=== PATIENT | female | born 2000 | race Caucasian/White ===

== ENCOUNTER 2020-08-29 07:20 | Emergency (ER) | payer OTHER, SELFPAY ==
[2020-08-29 07:21] VITALS: BP 153/84; PULSE 74; RESP 16; TEMP 36.8; O2SAT 98; BMI 28.3
--- NOTE | 2020-08-29 07:44 | CT_ITS ---
PROCEDURE: CT ABDOMEN PELVIS WO CON CLINICAL INDICATION: flank pain Left flank pain COMPARISON: No exams were available for comparison TECHNIQUE: Axial images obtained with sagittal and coronal reformats. All CT scans at the facility use one or more dose reduction, viz: automated exposure control, ma/kV adjustment per patient size (including targeted exams where dose is matched to indication, i.e. head), or iterative reconstruction technique. FINDINGS: LOWER THORAX: No acute finding ABDOMEN & PELVIS: Stippled areas of decreased attenuation are present in the gallbladder consistent with cholelithiasis. The spleen, adrenal glands, and pancreas have an unremarkable appearance. There is a small hiatal hernia. There is mild ectasia of the left renal collecting system and ureter but no definite ureteral stone is apparent. The urinary bladder is decompressed. No intestinal obstruction or free air. No evidence of appendicitis or diverticulitis. 2 cm hypodensity is present in the left ovary consistent with ovarian cyst. No acute bony anomalies. There is grade 2 spondylitic spondylolisthesis of L5 on S1. IMPRESSION: 1. Minimal ectasia of the left renal collecting system and minimal haziness of the periureteral fat. A definite ureteral stone is not identified and no stones are evident within the urinary bladder. This may be seen with recently passed stone or urinary tract infection. 2. 2 cm left ovarian cyst. 3. Cholelithiasis Dictated by: Cesar Godinez MD 08/29/2020 10:02 Cesar Godinez MD in OV 08/29/2020 10:02
--- NOTE | 2020-08-29 07:46 | HMH.EDGENADL ---
ED Disposition Clinical Impression: Renal colic on left side Disposition: Home, Self-Care Condition on Discharge: Good Additional Instructions: You were seen on an emergency basis. It is very important that you follow up with your primary care provider and/or specialist as we discussed within 2 days. All labs and imaging were obtained and interpreted here to rule out life threatening emergencies, but your final results should be reviewed by your primary doctor at your follow up appointment. Please return to the emergency department if any of your symptoms worsen, or if they do not improve as we discussed. Prescriptions: Naproxen Sodium [Anaprox Ds] 550 mg PO BID PRN #20 tab PRN Reason: Moderate Pain Prescription Printed Referrals: Bruce Redding [Primary Care Provider] - - Critical Care Critical Care Time: No Attestation: On , the high probability of a clinically significant, sudden or life threatening deterioration of the following system(s) required my full and direct attention, intervention and personal management. The time I documented below is in addition to time spent performing reported procedures but includes the following listed in this critical care notation. Medical Decision Making - Medical Records Medical records reviewed: Yes: I reviewed the patient's medical records. - Jesus Inquiry Pt receiving controlled substance: No Vital Signs: 08/29/20 07:21 08/29/20 09:10 08/29/20 09:30 Temperature 98.3 F Temperature Source Oral Pulse Rate [Radial] 74 59 L 56 L Respiratory Rate 16 20 Blood Pressure [Right Arm] 153/84 H 115/66 103/44 L Blood Pressure Mean [Right Arm] 107 82 63 Blood Pressure Source [Right Arm] Automatic Cuff Automatic Cuff Blood Pressure Position [Right Arm] Sitting Sitting Sitting 02 Sat by Pulse Oximetry 98 100 97 Oxygen Delivery Method Room Air Room Air - Lab Data Lab Results 08/29/20 08:09: WBC 11.3, RBC 4.66, Hgb 14.3, Hct 42.9, MCV 91.9, MCH 30.6, MCHC 33.3, RDW 13.5, Plt Count 357, MPV 8.4, Neut % (Auto) 69.0, Lymph % (Auto) 22.2, [place] % (Auto) 4.5, Eos % (Auto) 3.9, Baso % (Auto) 0.5, Neut # (Auto) 7.8, Lymph # (Auto) 2.5, [place] # (Auto) 0.5, Eos # (Auto) 0.4, Baso # (Auto) 0.1 08/29/20 08:09: Sodium 141, Potassium 3.6, Chloride 108 H, Carbon Dioxide 25, Anion Gap 11.6, BUN 10, Creatinine 0.90, Estimated Creat Clear 121, Estimated GFR 80, Est GFR ( Amer) 97, Glucose 110 H, Calcium 9.4, Total Bilirubin 0.5, AST 22, ALT 18, Alkaline Phosphatase 98, Total Protein 7.6, Albumin 4.2, Globulin 3.4 H, Albumin/Globulin Ratio 1.2 08/29/20 08:09: Serum HCG, Qual Negative 08/29/20 08:27: Urine Color Yellow, Urine Appearance Clear, Urine pH 6.0, Ur Specific [place] >= 1.030, Urine Protein Trace, Urine Glucose (UA) Negative, Urine Ketones Trace, Urine Blood 3+, Urine Nitrate Negative, Urine Bilirubin Negative, Urine Urobilinogen 0.2, Ur Leukocyte Esterase Negative, Urine RBC 20-50, Urine WBC Occasional, Ur Squamous Epith Cells 10-20, Urine Bacteria 1+ 08/29/20 08:27: Urine HCG, Qual Negative Result diagrams: 08/29/20 08:09 08/29/20 08:09 Orders (Tests/Meds): ED MEDICATIONS Generic Name Dose Route Start Last Admin Trade Name Freq PRN Reason Stop Dose Admin Sodium Chloride 1,000 mls @ 999 mls/hr 08/29/20 08:45 08/29/20 08:34 Sod Chlor 0.9% 1000ml Bag IV 08/29/20 09:45 999 mls/hr .[id number] JORDAN Administration Discontinued Medications Generic Name Dose Route Start Last Admin Trade Name Freq PRN Reason Stop Dose Admin Hydromorphone HCl 1 mg 08/29/20 08:32 08/29/20 08:33 Hydromorphone 2mg/Ml Syringe IV 08/29/20 08:33 1 mg ONCE ONE Administration Ketorolac Tromethamine 30 mg 08/29/20 09:21 08/29/20 09:23 Ketorolac 30mg/Ml Vial IV 08/29/20 09:22 30 mg ONCE ONE Administration Morphine Sulfate 4 mg 08/29/20 07:45 08/29/20 08:11 Morphine 4mg/Ml Syringe IV 08/29/20 07:46 4 mg ONCE ONE Administration Ondansetron HCl 4 mg 01
[2020-08-29 08:24] LABS: Basophils # 0.1 K/mm3 (0-0.2); Basophils % 0.5 % (0.1-2.0); Eosinophils # 0.4 K/mm3 (0.0-0.4); Eosinophils % 3.9 % (0.1-12.0); Hematocrit 42.9 % (37.0-47.0); Hemoglobin 14.3 g/dL (12.2-16.2); Lymphocytes # 2.5 K/mm3 (0.7-4.5); Lymphocytes % 22.2 % (10-50); Mean Corpuscular HGB Conc 33.3 g/dL (31.8-35.4); Mean Corpuscular Hemoglobin 30.6 pg (27.0-31.2); Mean Corpuscular Volume 91.9 fl (81-99); Mean Platelet Volume 8.4 fl (7.4-10.4); Monocytes # 0.5 K/mm3 (0.1-1.0); Monocytes % 4.5 % (1.7-9.3); Neutrophils # 7.8 K/mm3 (1.8-7.8); Platelet Count 357 K/mm3 (142-424); Red Blood Count 4.66 M/mm3 (4.20-5.40); Red Cell Distribution Width 13.5 % (11.5-17.5); White Blood Count 11.3 K/mm3 (4.5-13.0)
[2020-08-29 08:28] LABS: HCG Qualitative, Serum Negative (Negative)
[2020-08-29 08:32] LABS: Alanine Aminotransferase 18 U/L (12-78); Albumin Level 4.2 g/dl (3.5-5.0); Albumin/Globulin Ratio 1.2 (1.1-1.8); Alkaline Phosphatase 98 U/L (38-126); Anion Gap 11.6 mEq/L (5-15); Aspartate Amino Transferase 22 U/L (14-36); Bilirubin,Total 0.5 mg/dl (0.2-1.3); Blood Urea Nitrogen 10 mg/dl (7-17); Calcium 9.4 mg/dl (8.4-10.2); Carbon Dioxide 25 mmol/L (22.0-30.0); Chloride 108 mmol/L (98-107); Creatinine Clearance Estimated 121 mL/min (50-200); Estimated Glomerular Filt Rate 80 ml/min (>60); GFR (African American) 97 ML/MIN (>60); Globulin 3.4 g/dL (1.3-3.2); Glucose 110 mg/dl (74-100); Potassium 3.6 mmoL/L (3.5-5.1); Sodium 141 mmol/L (136-145); Total Protein,Serum 7.6 g/dl (6.3-8.2)
[2020-08-29 08:33] LABS: Microscopic, Urine URINE MICROSCOPIC (MICROSCOPIC)
[2020-08-29 08:35] LABS: Appearance,Urine CLEAR (Clear); Blood, Urine 3+ (Negative); Color,Urine YELLOW (Yellow); Glucose,Urine (UA) Negative (Negative); Ketones,Urine TRACE (Negative); Leukocyte Esterase,Urine Negative (Negative); Nitrate,Urine Negative (Negative); Protein,Urine TRACE (Negative); Specific Gravity, Urine >= 1.030 (1.005-1.030); Urobilinogen,Urine 0.2 EU/dl (0.2)
[2020-08-29 08:38] LABS: Urine Pregnancy, HCG Qual. Negative (Negative)
[2020-08-29 08:44] LABS: Bacteria,Urine 1+ /lpf; Bilirubin,Urine Negative (Negative); RBC,Urine 20-50 #/hpf (0-3); WBC,Urine Occasional #/hpf (0-3)
--- NOTE | 2020-08-29 08:48 | PC.NURSE ---
Patient gone to radiology
--- NOTE | 2020-08-29 09:04 | PC.NURSE ---
Patient returned from radiology
[2020-08-29 09:10] VITALS: BP 115/66; PULSE 59; RESP 20; O2SAT 100
--- NOTE | 2020-08-29 09:27 | PC.NURSE ---
pt continues to c/o lt flank and llq abd pain
[2020-08-29 09:30] VITALS: BP 103/44; PULSE 56; O2SAT 97
[2020-08-29 09:54] VITALS: BP 126/79; PULSE 87; RESP 16; TEMP 36.6; O2SAT 98
== END 2020-08-29 09:56 | disposition home or self-care (01) ==
PROVIDERS: Emergency Provider Physician Assistant; PCP Family Medicine
DX: N23 Unspecified renal colic (principal); Z87.442 Personal history of urinary calculi
CPT/HCPCS: 74176; 80053; 81001; 81025; 84703; 85025; 96365; 96375; 96376; 99283; J2405

== ENCOUNTER 2021-08-24 15:14 | Emergency (ER) | payer SELFPAY ==
[2021-08-24 15:50] VITALS: BP 153/98; PULSE 110; RESP 20; TEMP 38.7; O2SAT 99; BMI 22.1
[2021-08-24 16:16] LABS: UTC Influenza A Antigen Positive (Negative); UTC Strep Screen (Rapid) Negative (Negative)
[2021-08-24 16:17] LABS: UTC Influenza B Antigen Negative (Negative)
--- NOTE | 2021-08-24 16:36 | HMH.EDUTC ---
[facility] [facility] [place] Clinical Impression: Influenza Disposition: Home, Self-Care Condition on Discharge: Good Instructions: How to Avoid a Cold or Flu, Influenza, DI for Influenza -- Adult, Oseltamivir Additional Instructions: ? Start Tamiflu today if you are going to take it. Discussed risk and possible benefits. ? Lots of rest ? Increase Fluids water, Gatorade, powerade, pedialyte,if infant/toddler/child ? Alternate Tylenol and / or ibuprofen as discussed for fever, aches, chills Follow up IMMEDIATELY with your family doctor for new or worsening Symptoms OR no noticeable improvement over the next 48-72 hours, 911 for difficulty or breathing ? You or your child area contagious until no fever, aches, chills for 24 hours with medication for symptoms ? Help Prevent the spread of influenza: ? Wash your hands often. Use soap and water. Wash your hands after you use the bathroom, change a child's diapers, or sneeze. Wash your hands before you prepare or eat food. Use gel hand cleanser that has 60% alcohol, when soap and water are not available. Do not touch your eyes, nose, or mouth unless you have washed your hands first. ? Cover your mouth when you sneeze or cough. Cough into a tissue or the bend of your arm. If you use a tissue, throw it away immediately and wash your hands. ? Clean shared items with a germ-killing bottle cleaner. Clean table surfaces, doorknobs, and light switches. Do not share towels, silverware, and dishes with people who are sick. Wash bed sheets, towels, silverware, and dishes with soap and water. ? Wear a mask over your mouth and nose if you are sick. The face mask may help protect others from becoming infected with the flu. Wear the mask when in common areas of your home or if you seek care with a healthcare provider. ? Stay away from others if you are sick. Stay at home until 24 hours after your fever and symptoms are gone. Prescriptions: Oseltamivir Phosphate [Tamiflu 75mg Capsule] 75 mg PO BID #10 cap Prescription Printed Referrals: Bruce Redding [Primary Care Provider] - As needed Forms: Work/School Release Medical Decision Making - Jesus Inquiry Pt receiving controlled substance: No Jesus was queried for this patient: No Vital Signs: 08/24/21 15:50 08/24/21 16:38 Temperature 101.6 F H 101.6 F H Temperature Source Oral Pulse Rate 110 H Pulse Rate [Right Brachial] 110 H Respiratory Rate 20 20 Blood Pressure 153/98 H Blood Pressure [Right Arm] 153/98 H Blood Pressure Mean [Right Arm] 116 Blood Pressure Source [Right Arm] Automatic Cuff Blood Pressure Position [Right Arm] Sitting 02 Sat by Pulse Oximetry 99 Oxygen Delivery Method Room Air - Lab Data Lab results reviewed: Yes: I reviewed the patient's lab results. Lab Results 08/24/21 16:15: Influenza Type A Ag Positive A, Influenza Type B Ag Negative 08/24/21 16:15: Strep Scn Rapid Clinic Negative Orders (Tests/Meds): ED MEDICATIONS Discontinued Medications Generic Name Dose Route Start Last Admin Trade Name Freq PRN Reason Stop Dose Admin Acetaminophen 650 mg 08/24/21 16:09 08/24/21 16:12 Acetaminophen 325mg Tab PO 08/24/21 16:10 650 mg ONCE ONE Administration Ibuprofen 400 mg 08/24/21 16:09 08/24/21 16:12 Ibuprofen 400 Mg Tablet PO 08/24/21 16:10 400 mg ONCE ONE Administration ORDERS Category Date Time Status Strep Screen Confirmation Stat Micro 08/24/21 16:15 Received [facility] [place] - General Stated complaint: Congestion, sore throat, cough Time Seen by Provider: 08/24/21 16:37 Mode of Arrival: Ambulatory Source of Information: Patient Limitations: No Limitations Description of Symptoms (Recalled from Triage Doc. by RN): PATIENT C/O CHEST CONGESTION, SORE THROAT, AND PRODUCTIVE COUGH WITH MUCOUS SINCE SUNDAY HEENT Symptoms (Recalled from RN notes): Yes Resp Symptoms (Recalled from RN notes): Yes Skin Symptoms (Recalled from RN notes): No MS Symptoms (Recalled from RN notes): No Fun
[2021-08-24 16:38] VITALS: BP 153/98; PULSE 110; RESP 20; TEMP 37.9; O2SAT 99
== END 2021-08-24 16:45 | disposition home or self-care (01) ==
PROVIDERS: Emergency Provider Nurse Practitioner; PCP Family Medicine
DX: J10.1 Influenza due to other identified influenza virus with other respiratory manifestations (principal)
CPT/HCPCS: 87804; 87880; 99203; G0463

== ENCOUNTER 2022-03-17 10:27 | Emergency (ER) | payer SELFPAY ==
[2022-03-17 10:30] VITALS: BP 142/99; PULSE 78; RESP 16; TEMP 37.1; O2SAT 98; BMI 20.9
--- NOTE | 2022-03-17 10:43 | PC.NURSE ---
Kimberlee DONALDSON walked patient from her room to the bathroom.
--- NOTE | 2022-03-17 10:48 | PC.NURSE ---
Walked patient back to her room and obtained her urine sample. Hooked patient [facility] to [facility] and asked the patient if i could get her anything she replied back no . Call light within reach told patient to press the red button if she needed us.
[2022-03-17 10:49] VITALS: BP 138/60; PULSE 61; RESP 16; O2SAT 100
--- NOTE | 2022-03-17 10:51 | CT_ITS ---
FINAL REPORT CLINICAL HISTORY: FALL FINDINGS: Axial CT images of the cervical spine were obtained without contrast. Sagittal and coronal reformatted images were also obtained. This study was performed with techniques to keep radiation doses as low as reasonably achievable (ALARA). Individualized dose reduction techniques using automated exposure control or adjustment of mA and/or kV according to the patient's size were employed. There is no evidence of fracture or dislocation. The bony alignment is normal. The disc spaces are preserved. There is no evidence of canal stenosis. No paraspinous soft tissue abnormality is seen. Limited images of the upper thorax are unremarkable. IMPRESSION: No fracture or acute bony abnormality identified. Reviewed, Interpreted and Dictated by Will Ernandez III, MD Transcribed by Vickie Rios Authenticated and [facility]
--- NOTE | 2022-03-17 10:51 | CT_ITS ---
FINAL REPORT CLINICAL HISTORY: CONFUSION FINDINGS: Axial images of the head were obtained without contrast. Coronal reformatted images were also obtained.This study was performed with techniques to keep radiation doses as low as reasonably achievable (ALARA). Individualized dose reduction techniques using automated exposure control or adjustment of mA and/or kV according to the patient's size were employed. There is no evidence of intracranial hemorrhage or mass. The ventricular size is within normal limits. There is no evidence of shift of the midline structures. No abnormal extra axial fluid collection is identified. No skull abnormality is seen on the bone window images. IMPRESSION: No acute intracranial abnormality. Reviewed, Interpreted and Dictated by Will Ernandez III, MD Transcribed by Vickie Rios Authenticated and [facility]
[2022-03-17 10:57] LABS: Microscopic, Urine URINE MICROSCOPIC (MICROSCOPIC)
[2022-03-17 11:03] LABS: Appearance,Urine CLEAR (Clear); Bilirubin,Urine Negative (Negative); Blood, Urine Negative (Negative); Color,Urine YELLOW (Yellow); Glucose,Urine (UA) Negative (Negative); Ketones,Urine Negative (Negative); Leukocyte Esterase,Urine Negative (Negative); Nitrate,Urine Negative (Negative); PH,Urine 7.5 (5.0-8.5); Protein,Urine Negative (Negative); Urobilinogen,Urine 0.2 EU/dl (0.2)
[2022-03-17 11:07] VITALS: BP 142/95; PULSE 66; RESP 16; O2SAT 100
--- NOTE | 2022-03-17 11:08 | PC.NURSE ---
Vitals computer said that there was an airway leak on the patient BP cuff. Went into room and readjusted patient BP cuff. Asked patient if she needed anything she shook her head no. I told her if she needed anything to call out.
[2022-03-17 11:10] LABS: Urine Pregnancy, HCG Qual. Negative (Negative)
--- NOTE | 2022-03-17 11:10 | HMH.EDGENADL ---
ED Disposition Clinical Impression: Complicated migraine Disposition: Home, Self-Care Condition on Discharge: Good Instructions: DI for Migraine Additional Instructions: Additional instructions for HEADACHE: See your physician as soon as possible for further evaluation. Return immediately if worsening headache, vomiting, problems with vision or speech, fever, numbness or weakness of the extremities, neck pain or stiffness. Referrals: Bruce Redding [Primary Care Provider] - Forms: Work/School Release - Critical Care Critical Care Time: No Attestation: On 03/17/22, the high probability of a clinically significant, sudden or life threatening deterioration of the following system(s) required my full and direct attention, intervention and personal management. The time I documented below is in addition to time spent performing reported procedures but includes the following listed in this critical care notation. Medical Decision Making - Jesus Inquiry Pt receiving controlled substance: No Vital Signs: 03/17/22 10:30 03/17/22 10:49 03/17/22 11:07 Temperature 98.7 F Temperature Source Oral Pulse Rate 61 66 Pulse Rate [Radial] 78 Respiratory Rate 16 16 16 Blood Pressure 138/60 142/95 H Blood Pressure [Right Arm] 142/99 H Blood Pressure Mean 114 114 Blood Pressure Mean [Right Arm] 113 Blood Pressure Position [Right Arm] Sitting 02 Sat by Pulse Oximetry 98 100 100 Oxygen Delivery Method Room Air 03/17/22 11:58 Temperature Temperature Source Pulse Rate 56 L Pulse Rate [Radial] Respiratory Rate 16 Blood Pressure 144/82 H Blood Pressure [Right Arm] Blood Pressure Mean 103 Blood Pressure Mean [Right Arm] Blood Pressure Position [Right Arm] 02 Sat by Pulse Oximetry 100 Oxygen Delivery Method Room Air - Lab Data Lab Results 03/17/22 10:40: Urine Color Yellow, Urine Appearance Clear, Urine pH 7.5, Ur Specific [place] 1.020, Urine Protein Negative, Urine Glucose (UA) Negative, Urine Ketones Negative, Urine Blood Negative, Urine Nitrate Negative, Urine Bilirubin Negative, Urine Urobilinogen 0.2, Ur Leukocyte Esterase Negative, Urine RBC None, Urine WBC Occasional, Ur Squamous Epith Cells 3-5, Urine Bacteria Trace 03/17/22 10:40: Urine HCG, Qual Negative 03/17/22 11:05: WBC 7.5, RBC 4.28, Hgb 12.6, Hct 37.9, MCV 88.6, MCH 29.4, MCHC 33.2, RDW 13.8, Plt Count 329, MPV 7.7, Neut % (Auto) 69.0, Lymph % (Auto) 25.0, [place] % (Auto) 4.8, Eos % (Auto) 0.6, Baso % (Auto) 0.6, Neut # (Auto) 5.2, Lymph # (Auto) 1.9, [place] # (Auto) 0.4, Eos # (Auto) 0.1, Baso # (Auto) 0.0 03/17/22 11:05: Sodium 138, Potassium 4.1, Chloride 107, Carbon Dioxide 23, Anion Gap 12.1, BUN 14, Creatinine 0.80, Estimated Creat Clear 103, Estimated GFR 90, Est GFR ( Amer) 109, Glucose 97, Calcium 9.4, Total Bilirubin 0.3, AST 26, ALT 15, Alkaline Phosphatase 48, Total Protein 7.0, Albumin 4.2, Globulin 2.8, Albumin/Globulin Ratio 1.5 Result diagrams: 03/17/22 11:05 03/17/22 11:05 Orders (Tests/Meds): ED MEDICATIONS Discontinued Medications Generic Name Dose Route Start Last Admin Trade Name Freq PRN Reason Stop Dose Admin Iopamidol 100 ml 03/17/22 11:43 03/17/22 11:44 Iopamidol-370 (76%);100ml Bottle IV 03/17/22 11:44 100 ml ONCE ONE Administration Sodium Chloride 50 ml 03/17/22 11:43 03/17/22 11:44 0.9 % Sodium Chloride 50 Ml Vial IV 03/17/22 11:44 50 ml ONCE ONE Administration Sodium Chloride 10 ml 03/17/22 11:43 03/17/22 11:44 Sodium Chloride 0.9% 10ml Syr (Rad Only) IV 03/17/22 11:44 10 ml ONCE ONE Administration - CT Data CT Scan: Head, C-Spine, Other (CTA head and neck) Time Received: 12:[address] Reviewed: Yes: I have viewed the radiologist's interpretation Findings Narrative: Ordering Physician: Cordell Mary MD Date of Service: 03/17/22 Procedure(s): CT angio neck Accession Number(s): [id number] cc: Bruce Redding ; Will Ernandez MD; Cordell Mary
[2022-03-17 11:17] LABS: Bacteria,Urine Trace /lpf; WBC,Urine Occasional #/hpf (0-3)
--- NOTE | 2022-03-17 11:18 | PC.NURSE ---
DR GAMEZ AT BEDSIDE ASSESSING PT.
--- NOTE | 2022-03-17 11:20 | CT_ITS ---
FINAL REPORT TECHNIQUE: Thin section axial CT with IV contrast supplemented with multiplanar reconstruction under CT angiogram protocol. This study was performed with techniques to keep radiation doses as low as reasonably achievable (ALARA). Individualized dose reduction techniques using automated exposure control or adjustment of mA and/or kV according to the patient''s size were employed. CLINICAL HISTORY: right sided numbness, confusion, headache FINDINGS: The distal vertebral, basilar and distal internal carotid arteries have an unremarkable appearance. No aneurysm is seen. Major intracranial vessels are patent without significant stenosis. IMPRESSION: No acute abnormality identified. Reviewed, Interpreted and Dictated by Will Ernandez III, MD Transcribed by Vickie Rios Authenticated and [facility]
--- NOTE | 2022-03-17 11:20 | CT_ITS ---
FINAL REPORT TECHNIQUE: Thin section axial CT with IV contrast supplemented with multiplanar reconstruction under CT angiogram protocol. This study was performed with techniques to keep radiation doses as low as reasonably achievable (ALARA). Individualized dose reduction techniques using automated exposure control or adjustment of mA and/or kV according to the patient''s size were employed. NASCET criteria was utilized during interpretation. CLINICAL HISTORY: right sided numbness, confusion, headache FINDINGS: Aortic arch: Arch shows no significant narrowing. Great vessel origins are widely patent. Right carotid: No significant stenosis is seen of the cervical common or internal carotid artery. Left carotid: No significant stenosis is seen of the cervical common or internal carotid artery. Vertebral: Left vertebral artery is dominant. No significant stenosis is present. Reviewed, Interpreted and Dictated by Will Ernandez III, MD Transcribed by Vickie Rios Authenticated and [facility]
--- NOTE | 2022-03-17 11:20 | PC.NURSE ---
radiology at [facility] to transporting pt to CT via wheelchair
[2022-03-17 11:28] LABS: Basophils % 0.6 % (0.1-2.0); Eosinophils # 0.1 K/mm3 (0.0-0.4); Eosinophils % 0.6 % (0.1-12.0); Hematocrit 37.9 % (37.0-47.0); Hemoglobin 12.6 g/dL (12.2-16.2); Lymphocytes # 1.9 K/mm3 (0.7-4.5); Mean Corpuscular HGB Conc 33.2 g/dL (31.8-35.4); Mean Corpuscular Hemoglobin 29.4 pg (27.0-31.2); Mean Corpuscular Volume 88.6 fl (81-99); Mean Platelet Volume 7.7 fl (7.4-10.4); Monocytes # 0.4 K/mm3 (0.1-1.0); Monocytes % 4.8 % (1.7-9.3); Neutrophils # 5.2 K/mm3 (1.8-7.8); Platelet Count 329 K/mm3 (142-424); Red Blood Count 4.28 M/mm3 (4.20-5.40); Red Cell Distribution Width 13.8 % (11.5-17.5); White Blood Count 7.5 K/mm3 (4.8-10.8)
[2022-03-17 11:31] LABS: Potassium 4.1 mmoL/L (3.5-5.1)
[2022-03-17 11:32] LABS: Albumin Level 4.2 g/dl (3.5-5.0); Chloride 107 mmol/L (98-107); Sodium 138 mmol/L (136-145)
[2022-03-17 11:33] LABS: Alanine Aminotransferase 15 U/L (12-78); Aspartate Amino Transferase 26 U/L (14-36); Blood Urea Nitrogen 14 mg/dl (7-17); Creatinine Clearance Estimated 103 mL/min (50-200); Estimated Glomerular Filt Rate 90 ml/min (>60); GFR (African American) 109 ML/MIN (>60)
[2022-03-17 11:34] LABS: Anion Gap 12.1 mEq/L (5-15); Calcium 9.4 mg/dl (8.4-10.2); Carbon Dioxide 23 mmol/L (22.0-30.0); Glucose 97 mg/dl (74-100)
[2022-03-17 11:35] LABS: Albumin/Globulin Ratio 1.5 (1.1-1.8); Alkaline Phosphatase 48 U/L (38-126); Bilirubin,Total 0.3 mg/dl (0.2-1.3); Globulin 2.8 g/dL (1.3-3.2)
--- NOTE | 2022-03-17 11:37 | PC.NURSE ---
Pt has returned back to room from CT via w/c.
[2022-03-17 11:58] VITALS: BP 144/82; PULSE 56; RESP 16; O2SAT 100
[2022-03-17 12:36] VITALS: BP 140/88; PULSE 78; RESP 16; TEMP 36.6; O2SAT 98
== END 2022-03-17 12:37 | disposition home or self-care (01) ==
PROVIDERS: Emergency Provider Emergency Medicine; PCP Family Medicine
DX: G43.109 Migraine with aura, not intractable, without status migrainosus (principal); R20.2 Paresthesia of skin; R47.01 Aphasia; R41.0 Disorientation, unspecified; R53.1 Weakness; H53.8 Other visual disturbances; R53.82 Chronic fatigue, unspecified; F17.210 Nicotine dependence, cigarettes, uncomplicated; W10.9XXA Fall (on) (from) unspecified stairs and steps, initial encounter
CPT/HCPCS: 70450; 70496; 70498; 72125; 80053; 81001; 81025; 85025; 99285; Q9967

== ENCOUNTER 2022-11-30 14:54 | Outpatient (CLI) | payer OTHER, SELFPAY ==
[2022-11-30 15:11] VITALS: BMI 30.4
[2022-11-30 15:15] VITALS: BP 156/89; PULSE 92; RESP 16; TEMP 37.2; O2SAT 100
[2022-11-30 15:30] VITALS: BP 138/63
[2022-11-30 15:36] LABS: Microscopic, Urine URINE MICROSCOPIC (MICROSCOPIC)
[2022-11-30 15:40] LABS: Appearance,Urine CLEAR (Clear); Bilirubin,Urine Negative (Negative); Blood, Urine Negative (Negative); Color,Urine YELLOW (Yellow); Glucose,Urine (UA) Negative (Negative); Ketones,Urine Negative (Negative); Leukocyte Esterase,Urine Negative (Negative); Nitrate,Urine Negative (Negative); Protein,Urine Negative (Negative); Urobilinogen,Urine 0.2 EU/dl (0.2)
[2022-11-30 15:45] VITALS: BP 129/89
[2022-11-30 15:51] LABS: Benzodiazepines Screen,Urine Negative ng/ml (<200)
[2022-11-30 15:52] VITALS: BMI 30.4
[2022-11-30 15:52] LABS: Amphetamine/Metha Screen,Urine Negative ng/ml (<1000); Barbiturates Screen,Urine Negative ng/ml (<200)
[2022-11-30 15:53] LABS: Cannabinoid Screen,Urine Negative ng/ml (<50)
[2022-11-30 15:54] LABS: Cocaine Screen,Urine Negative ng/ml (<300); Methadone Screen,Urine Negative ng/ml (<300)
[2022-11-30 15:55] LABS: Opiate Screen,Urine Negative ng/ml (<300)
[2022-11-30 15:56] LABS: Phencyclidine Screen,Urine Negative ng/ml (<25)
[2022-11-30 16:00] VITALS: BP 136/79
[2022-11-30 16:10] LABS: RBC,Urine Occasional #/hpf (0-3); WBC,Urine Occasional #/hpf (0-3)
[2022-11-30 16:11] LABS: Bacteria,Urine Trace /lpf
== END 2022-11-30 16:35 | disposition home or self-care (01) ==
LOC: OBOUT 14:58 → OB 14:59
PROVIDERS: PCP Family Medicine; Visit Provider Obstetrics & Gynecology
DX: O36.8120 Decreased fetal movements, second trimester, not applicable or unspecified (principal); Z3A.20 20 weeks gestation of pregnancy; M79.605 Pain in left leg
CPT/HCPCS: 80305; 81001; G0463

== ENCOUNTER 2023-01-23 14:46 | Outpatient (CLI) | payer OTHER, SELFPAY ==
[2023-01-23 14:49] VITALS: BP 136/85; PULSE 93; RESP 20; TEMP 37.1; O2SAT 98; BMI 33.3
[2023-01-23 16:42] LABS: Microscopic, Urine URINE MICROSCOPIC (MICROSCOPIC)
[2023-01-23 16:43] LABS: Appearance,Urine CLEAR (Clear); Bilirubin,Urine Negative (Negative); Blood, Urine Negative (Negative); Color,Urine YELLOW (Yellow); Glucose,Urine (UA) Negative (Negative); Ketones,Urine Negative (Negative); Leukocyte Esterase,Urine TRACE (Negative); Nitrate,Urine Negative (Negative); PH,Urine 6.5 (5.0-8.5); Protein,Urine Negative (Negative); Urobilinogen,Urine 0.2 EU/dl (0.2)
[2023-01-23 16:55] LABS: Amphetamine/Metha Screen,Urine Negative ng/ml (<1000); Benzodiazepines Screen,Urine Negative ng/ml (<200)
[2023-01-23 16:56] LABS: Barbiturates Screen,Urine Negative ng/ml (<200)
[2023-01-23 16:57] LABS: Cannabinoid Screen,Urine Negative ng/ml (<50); Cocaine Screen,Urine Negative ng/ml (<300)
[2023-01-23 16:58] LABS: Methadone Screen,Urine Negative ng/ml (<300)
[2023-01-23 16:59] LABS: Opiate Screen,Urine Negative ng/ml (<300); Phencyclidine Screen,Urine Negative ng/ml (<25)
[2023-01-23 17:02] LABS: Bacteria,Urine Trace /lpf; WBC,Urine Occasional #/hpf (0-3)
== END 2023-01-23 18:00 | disposition home or self-care (01) ==
LOC: OBOUT 14:47 → OB 14:48
PROVIDERS: PCP Family Medicine; Visit Provider Obstetrics & Gynecology
DX: O47.03 False labor before 37 completed weeks of gestation, third trimester (principal); Z3A.28 28 weeks gestation of pregnancy; M54.50 Low back pain, unspecified
CPT/HCPCS: 59025; 80305; 81001; 96365; G0463

== ENCOUNTER 2024-03-12 11:41 | Outpatient (CLI) | payer MEDICAID, SELFPAY ==
[2024-03-12] VITALS (8 sets, daily range): BP systolic 124–165; BP diastolic 64–98; PULSE 101; RESP 18; TEMP 37.2; O2SAT 97; BMI 40.4; BMI 38.7
--- OUTSIDE RECORDS SUMMARY | 2024-03-12 11:45 | XMS_ITS | Patient Health Record ---
Author Name Unknown Organization [facility] Address [address] [place] [address] Care Team Providers Care Exchange Architect Name Role Phone Iris Godoy Unavailable [phone] Clover Heath Unavailable [phone] Allergies No Known Allergies Results Component Value Reference Range Notes COMPREHENSIVE METABOLIC PANE L Reviewed date:10/15/2023 03:05:56 PM Interpretation:baseline cr = 0.72 Performing Lab: Notes/Report: GFR Normal >60 Chronic Kidney Disease <60 Kidney Failure <15 GLUCOSE RANDOM 88 65-99 mg/dL UREA NITROGEN MG/DL IN SER/PLAS 9 6-20 mg/dL CREATININE MG/DL IN SER/PLAS 0.72 0.57-1.00 mg/dL SODIUM MMOL/L IN SER/PLAS 137 136-145 mmol/L POTASSIUM MMOL/L IN SER/PLAS 4.3 3.5-5.2 mmol/L CHLORIDE 104 98-107 mmol/L CO2 19.6 22.0-29.0 mmol/L CALCIUM MG/DL IN SER/PLAS 9.3 8.6-10.5 mg/dL TOTAL PROTEIN 7.2 6.0-8.5 g/dL ALBUMIN G/DL IN SER/PLAS 4.2 3.5-5.2 g/dL ALT (SGPT) 11 1-33 U/L AST (SGOT) 10 1-32 U/L ALKALINE PHOSPHATASE 79 39-117 U/L BILIRUBIN TOTAL 0.3 0.0-1.2 mg/dL GLOBULIN 3.0 A/G RATIO 1.4 BUN / CREAT RATIO 12.5 7.0-25.0 ANION GAP 13.4 5.0-15.0 mmol/L EGFR CKD-EPI 120.7 >60.0 mL/min/1.73 Lab specim ens received at a [facility].???See result details for the performing location information. URIC ACID Reviewed date:10/15/2023 03:06:00 PM Interpretation:Normal Performing Lab: Notes/Report: URIC ACID 2.8 2.4-5.7 mg/dL Lab specimens received at a [facility].???See result details for the performing location information. LACTATE DEHYDROGENASE Reviewed date:10/15/2023 03:05:44 PM Interpretation:Normal Performing Lab: Notes/Report: LACTATE DEHYDROGENASE 182 135-214 U/L Lab sp ecimens received at a [facility].???See result details for the performing location information. ANTIBODY SCREEN Reviewed date:02/07/2024 08:15:29 AM Interpretation: Performing Lab: Notes/Report: ANTIBODY SCREEN Negative Lab specimen s received at a [facility].???See result details for the performing location information. HCG, QUANTITATIVE, Reviewed date:09/20/2023 02:48:47 PM Interpretation: Performing Lab: Notes/Report: HCG Ranges by Gestational Age Females - non- premenopausal </= 1mIU/mL HCG Females - postmenopausal </= 7mIU/mL HCG 3 Weeks 5.4 - 72 mIU/mL 4 Weeks 10.2 - 708 mIU/mL 5 Weeks 217 - 8,245 mIU/mL 6 Weeks 152 - 32,177 mIU/mL 7 Weeks 4,059 - 153,767 mIU/mL 8 Weeks 31,366 - 149,094 mIU/mL 9 Weeks 59,109 - 135,901 mIU/mL 10 Weeks 44,186 - 170,409 mIU/mL 12 Weeks 27,107 - 201,615 mIU/mL 14 Weeks 24,302 - 93,646 mIU/mL 15 Weeks 12,540 - 69,747 mIU/mL 16 Weeks 8,904 - 55,332 mIU/mL 17 Weeks 8,240 - 51,793 mIU/mL 18 Weeks 9,649 - 55,271 mIU/mL Results may be falsely decreased if patient taking Biotin. BETA HCG II, TOTAL 772.00 Lab speci mens received at a [facility].???See result details for the performing location information. TREPONEMA PALLIDUM (SYPHILIS ) SCREENING CASCADE Reviewed date:02/11/2024 01:10:29 PM Interpretation:Negative Performing Lab: Notes/Report: Performed at: [facility] [address] [id number] Cnc Maintenance Technician: Justina Duff MD, Phone: [phone] T PALLIDUM ANTIBODIES (TP-PA) Non Reactive Non Reacti Lab specimens receiv ed at a [facility].???See result details for the performing location information. GLUCOSE, POST 50 GM GLUCOLA Reviewed date:02/07/2024 08:15:35 AM Interpretation:113, passed Performing Lab: Notes/Report: GESTATIONAL GCT 113 65-139 mg/dL Lab specimen s received at a [facility].???See result details for the performing location information. CBC WITH AUTO DIFFERENTIAL Reviewed date:02/07/2024 08:15:42 AM Interpretation:Normal Performing Lab: Notes/Report: WBC, CORRECTED 11.12 3.40-10.80 10*3/mm3 ERYTHROCYTES IN BLOOD BY AUTOMATED COUNT 3.83 3.77-5.28 10*6/mm3 HEMOGLOBIN (G/DL) IN BLOOD 11.4 12.0-15.9 g/dL HEMATOCRIT (%) BY AUTOMATED COUNT 36.0 34.0-46.6 % RBC MCV (FL) BY AUTOMATED COUNT 94.0 79.0-97.0 fL RBC MCH (PG) BY AUTOMATED COUNT 29.8 26.6-33.0 pg RBC MCHC (G/DL) BY AUTOMATED COUNT 31.7 31.5-35.7 g/dL RBC RDW (%) BY AUTOMATED COUNT 13.4 12.3-15.4 % RDW-SD 45.7 37.0-54.0 fl MEAN PLATELET VOLUME (FL) BY AUTOMATED COUNT 10.6 6.0-12.0 fL PLATELETS BY AUTOMATED COUNT 313 140-450 10*3/mm3 NEUTROPHILS RELATIVE PERCENT BY AUTOMATED COUNT 81.7 42.7-76.0 % LYMPHOCYTES RELATIVE PERCENT BY AUTOMATED COUNT 12.7 19.6-45.3 % MONOCYTES RELATIVE PERCENT BY AUTOMATED COUNT 4.2 5.0-12.0 % EOSINOPHILS RELATIVE PERCENT BY AUTOMATED COUNT 0.3 0.3-6.2 % BASOPHILS RELATIVE PERCENT BY AUTOMATED COUNT 0.2 0.0-1.5 % IMMATURE GRANULOCYTES RELATIVE PERCENT 0.9 0.0-0.5 % NEUTROPHILS ABSOLUTE COUNT BY AUTOMATED COUNT 9.09 1.70-7.00 10*3/mm3 LYMPHOCYTES ABSOLUTE COUNT BY AUTOMATED COUNT 1.41 0.70-3.10 10*3/mm3 MONOCYTES ABSOLUTE COUNT BY AUTOMATED COUNT 0.47 0.10-0.90 10*3/mm3 EOSINOPHILS ABSOLUTE COUNT BY AUTOMATED COUNT 0.03 0.00-0.40 10*3/mm3 BASOPHILS ABSOLUTE COUNT BY AUTOMATED COUNT 0.02 0.00-0.20 10*3/mm3 IMMATURE GRANULOCYTES ABSOLUTE COUNT 0.10 0.00-0.05 10*3/mm3 NRBC (PER 100 WBCS) 0.0 0.0-0.2 /100 WBC Lab specimens received at a [facility].???See result details for the performing location information. TREPONEMA PALLIDUM (SYPHILIS ) SCREENING CASCADE Reviewed date:10/17/2023 08:50:20 AM Interpretation:Negative Performing Lab: Notes/Report: Performed at: [address] [place] [id number] Cnc Maintenance Technician: Justina Duff MD, Phone: [phone] T PALLIDUM ANTIBODIES (TP-PA) Non Reactive Non Reacti Lab specimens receiv ed at a [facility].???See result details for the performing location information. HEPATITIS B SURFACE ANTIGEN Reviewed date:10/15/2023 03:05:32 PM Interpretation:Negative Performing Lab: Notes/Report: HEPATITIS B SURFACE ANTIGEN Non-Reactive Non-Reacti Lab specimens receiv ed at a [facility].???See result details for the performing location information. HIV-1/O/2 ANTIGEN/ANTIBODY, 4TH GENERATION Reviewed date:10/15/2023 03:05:36 PM Interpretation:Negative Performing Lab: Notes/Report: The HIV antibody/antigen combo assay is a qualitative assay for HIV that includes the p24 antigen as well as antibodies to HIV types 1 and 2. This test is intended to be used as a screening assay in the diagnosis of HIV infection in patients over the age of 2. HIV DUO Non-Reactive Non-Reacti Lab specimens r eceived at a [facility].???See result details for the performing location information. HEPATITIS C ANTIBODY Reviewed date:10/15/2023 03:05:40 PM Interpretation:Negative Performing Lab: Notes/Report: HEPATITIS C ANTIBODY Non-Reactive Non-Reacti Lab spe cimens received at a [facility].???See result details for the performing location information. URINE CULTURE Reviewed date:10/16/2023 11:11:16 AM Interpretation:Normal Performing Lab: Notes/Report: Colonization of the urinary tract without infection is common. Treatment is discouraged unless the patient is symptomatic, , or undergoing an invasive urologic procedure. URINE CULTURE 2304 NORMAL UROGENITAL SKIP 25,000 CFU/mL Normal Urogenital Skip Lab specimens received at a [facility].???See result details for the performing location information. CBC (NO DIFF) Reviewed date:10/15/2023 03:06:09 PM Interpretation:Normal Performing Lab: Notes/Report: WBC, CORRECTED 9.76 3.40-10.80 10*3/mm3 ERYTHROCYTES IN BLOOD BY AUTOMATED COUNT 4.59 3.77-5.28 10*6/mm3 HEMOGLOBIN (G/DL) IN BLOOD 13.2 12.0-15.9 g/dL HEMATOCRIT (%) BY AUTOMATED COUNT 38.9 34.0-46.6 % RBC MCV (FL) BY AUTOMATED COUNT 84.7 79.0-97.0 fL RBC MCH (PG) BY AUTOMATED COUNT 28.8 26.6-33.0 pg RBC MCHC (G/DL) BY AUTOMATED COUNT 33.9 31.5-35.7 g/dL RBC RDW (%) BY AUTOMATED COUNT 13.0 12.3-15.4 % RDW-SD 39.6 37.0-54.0 fl MEAN PLATELET VOLUME (FL) BY AUTOMATED COUNT 10.5 6.0-12.0 fL PLATELETS BY AUTOMATED COUNT 391 140-450 10*3/mm3 Lab specimens receiv ed at a [facility].???See result details for the performing location information. HCG, QUANTITATIVE, Reviewed date:09/18/2023 03:43:21 PM Interpretation: Performing Lab: Notes/Report: HCG Ranges by Gestational Age Females - non- premenopausal </= 1mIU/mL HCG Females - postmenopausal </= 7mIU/mL HCG 3 Weeks 5.4 - 72 mIU/mL 4 Weeks 10.2 - 708 mIU/mL 5 Weeks 217 - 8,245 mIU/mL 6 Weeks 152 - 32,177 mIU/mL 7 Weeks 4,059 - 153,767 mIU/mL 8 Weeks 31,366 - 149,094 mIU/mL 9 Weeks 59,109 - 135,901 mIU/mL 10 Weeks 44,186 - 170,409 mIU/mL 12 Weeks 27,107 - 201,615 mIU/mL 14 Weeks 24,302 - 93,646 mIU/mL 15 Weeks 12,540 - 69,747 mIU/mL 16 Weeks 8,904 - 55,332 mIU/mL 17 Weeks 8,240 - 51,793 mIU/mL 18 Weeks 9,649 - 55,271 mIU/mL Results may be falsely decreased if patient taking Biotin. BETA HCG II, TOTAL 306.00 Lab speci mens received at a [facility].???See result details for the performing location information. PROGESTERONE Reviewed date:09/18/2023 12:38:58 PM Interpretation:Normal Performing Lab: Notes/Report: Progesterone Reference Ranges: Adult Males: 0.0-0.5 ng/mL Adult Femles: Follicular phase 0.1-0.9 ng/mL Ovulation phase 0.1-12.0 ng/mL Luteal phase 1.8-23.9 ng/mL Postmenopausal 0.0-0.1 ng/mL : First Trimester 11.0-44.3 ng/mL Second Trimester 25.4-83.3 ng/mL Third Trimester 58.7-214.0 ng/mL Results may be falsely increased if patient taking Biotin. PROGESTERONE LEVEL 12.60 Lab speci mens received at a [facility].???See result details for the performing location information. Pap w/reflex HPV/CTNG/Trich Reviewed date:10/23/2023 09:01:14 AM Interpretation:unsatisfactory Performing Lab:[facility] [place] CLIA ID [id number], [address], [address], [place] [address], Director - Marlen Leon MD Notes/Report: Any Nucleic Acid Amplification testing is performed on the [employer]. Diagnosis: Unsatisfactory. AP results DIAGNOSIS: Unsatisfactory. Specimen Adequacy: Unsatisfactory for interpretation due to scant squamous cellularity. 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 Screening note: This specimen has been analyzed by the BlueVinePrep Imaging System, an interactive computer system which assists the lab in screening of ThinPrep Pap Test slides. Following imaging, the slide was reviewed by a Director Of Sports Medicine and/or Pathologist. Negative Educational Note: The pap screening test aids in the detection of premalignant and malignant states of the cervix. False positive and negative results may occur. It is not a diagnostic test. If abnormal cells are reported, follow-up based on current clinical guidelines and/or clinical consideration is recommended. Tk Holliday MD Pathologist CPT Codes: 37722, 13055 ICD Codes: Z32.01 Trichomonas vaginalis Rejected - Trichomonas result not reported out due to scant cellularity in ThinPrep. Negative Result amended from (Negative) (10/16/2023 1:31 PM) to (Rejected - Trichomonas result not reported out due to scant cellularity in ThinPrep.). Chlamydia Trachomatis Rejected - CT/NG result not reported out due to scant cellularity in ThinPrep. Negative Result amended from (Negative) (10/16/2023 12:23 PM) to (Rejected - CT/NG result not reported out due to scant cellularity in ThinPrep.). Neisseria Gonorrhoeae Rejected - CT/NG result not reported out due to scant cellularity in ThinPrep. Negative Result amended from (Negative) (10/16/2023 12:23 PM) to (Rejected - CT/NG result not reported out due to scant cellularity in ThinPrep.). Urine Test Reviewed date:09/17/2023 11:49:36 AM Interpretation:Positive Performing Lab: Notes/Report: Positive Q/C: Y/NQQ Y/QQ Result: Faint Pos. *US OB Complete Transabdomin al/Vaginal Reviewed date:10/16/2023 08:19:58 AM Interpretation: Performing Lab: Notes/Report: [facility] Transvaginal Obstetric Study Report Name: JERZY LOPEZ Accession/Encounter No:[id number] : 2000 Age: 22 Gender: F Race: White Study Date: Oct 15, 2023 Study Time: 09:10 AM Reading Group: Ana Gaspar MD Referring Group: Iris Godoy MD Ordering Phys: Iris Godoy MD Performing User: Elba Morin RDMS Equipment: Affiniti 30 Study Quality: Good Diagnosis Code: (Z3201) Encounter for test, result positive Procedure Code: USOBCOMPTRANSVAG - *US OB Complete Transabdominal /Vaginal A 1st Trimester ultrasound was performed. General Information Trimester: 1st trimester Gestations: 1 : Intrauterine Gestational Age (Best) Best: 8w 1d Determined by: Current US FLORIAN: 2024-05-25 Gestational Age (LMP) LMP: 9w 4d First Day of LMP: 2023-08-09 FLORIAN: 2024-05-15 Gestational Age (Current US) Current US: 8w 1d Current US FLORIAN by: FLORIAN: 2024-05-25 General Evaluation cardiac activity: Present Biometry (Fetus A) HR: 178 bpm Noonan-rump length:17 mm 8w 1d Conclusions: Sandhu IUP noted with cardiac activity. Size is NOT consistent with LMP dating. Uterus, ovaries and bilateral adnexa appear normal. Approved By: Ana Gaspar MD Approved at: October 15, 2023 07:39 PM EST Electronically Signed on Studycast JERZY LOPEZ 2023-10-15 Page 1 of 1 [facility] [address] *US OB Detailed Anatomy Reviewed date:01/08/2024 12:08:53 PM Interpretation: Performing Lab: Notes/Report: [facility] Transabdominal Obstetric Study Report Name: JERZY LOPEZ Accession/Encounter No:[id number] : 2000 Age: 23 Gender: F Race: White Study Date: January 08, 2024 Study Time: 09:02 AM Reading Group: Clover Heath MD Referring Group: Clover Heath MD Ordering Phys: Clover Heath MD Performing User: Genoveva Flores RDMS Equipment: Affiniti 30 Study Quality: Good Indications: anatomy scan Risk Factors: Obesity. Hx of preeclampsia An anatomy ultrasound was performed. General Information Trimester: 2nd/3rd trimester Gestations: 1 : Intrauterine Gestational Age (Best) Best: 20w 2d Determined by: LMP FLORIAN: 2024-05-25 Gestational Age (LMP) LMP: 20w 2d First Day of LMP: 2023-08-19 FLORIAN: 2024-05-25 Gestational Age (Current US) Current US: 20w 2d FLORIAN: 2024-05-25 General Evaluation gender: F cardiac activity: Present Presentation/Position: Cephalic Placental cord insert: Centrally located Placental location: Posterior Biometry (Fetus A) EFW: 332.9g 12 oz 44% HARIS-76 HR: 153 bpm BPD: 4.72 cm 20w 2d 49% HADLOCK-84 HC: 17.89 cm20w 2d 44% HADLOCK-84 AC: 14.71 cm20w 0d 34% HADLOCK-84 FL: 3.26 cm 20w 1d 38% HADLOCK-84 FL/HC: 0.18 HC/AC: 1.22 FL/BPD: 0.69 FL/AC: 0.22 Cisterna magna: 2.7 mm Lateral vents: 3.7 mm TCD: 1.92 cm 19w 5d 8% Nuchal fold: 2.88 mm Anatomy (Fetus A) Midline falx: Normal Cisterna magna: Normal Choroid plexus: Normal Lateral ventricles: Normal Cerebellum: Normal CSP: Normal Orbits: Normal Face: Normal Profile: Normal Nasal bone: Normal Nose/Lips: Normal Right upper extr: Normal Right lower extr: Normal Left upper extr: Normal Left lower extr: Normal 4-chamber heart: Normal Aortic arch: Normal LVOT: Normal RVOT: Normal Cardiac rhythm: Normal Spine: Normal Stomach: Normal Diaphragm: Normal Bowel: Normal Right kidney: Normal Left kidney: Normal Bladder: Normal Abdom. cord insert: Normal Cord vessels: 3 vessel cord Findings: Anatomy: Sonographic evaluation reveals sandhu intrauterine in cephalic position, centrally located cord insert. Posterior placenta. cardiac activity present. growth appears normal. Maternal Anatomy: Cervix is 3.59 cm long. Conclusions: Sandhu IUP noted with cardiac activity. No anomalies noted at this time. though anatomy limited by [facility]. growth is consistent with dating. Fluid appears normal Approved By: Clover Heath MD Approved at: January 08, 2024 12:01 PM EDT Electronically Signed on Studycast JERZY GONZALEZCASSIE 2024-01-08 Page 1 of 1 Imaging Center - , [facility] Leeanna Montanez PROTEIN / CREATININE RATIO, URINE Reviewed date:10/16/2023 08:19:51 AM Interpretation:pr:cr 0.08 - normal Performing Lab: Notes/Report: PROT/CREAT RATIO, UR 81.7 0.0-200.0 m g/G Crea CREATININE URINE 128.5 PROTEIN URINE 10.5 Lab specimens received at a [facility].???See result details for the performing location information. RUBELLA ANTIBODY, IGG Reviewed date:10/16/2023 08:19:31 AM Interpretation:Immune Performing Lab: Notes/Report: Performed at: [address] [place] [id number] Cnc Maintenance Technician: Deejay Rhodes PhD, Phone: [phone] RUBELLA ANTIBODIES, IGG (REF) 1.44 Immune >0. index Non-immune <0.90 Equivocal 0.90 - 0.99 Immune >0.99 Lab specimens received at a [facility].???See result details for the performing location information. FENTANYL, URINE Reviewed date:10/15/2023 12:10:51 PM Interpretation:Negative Performing Lab: Notes/Report: Negative Threshold: Fentanyl 5 ng/mL The normal value for the drug tested is negative. This report includes final unconfirmed screening results to be used for medical treatment purposes only. Unconfirmed results must not be used for non-medical purposes such as employment or legal testing. Clinical consideration should be applied to any drug of abuse test, particularly when unconfirmed results are used. ? FENTANYL URINE Negative Negative Lab specimens received at a [facility].???See result details for the performing location information. URINE DRUG SCREEN Reviewed date:10/15/2023 12:02:54 PM Interpretation:Negative Performing Lab: Notes/Report: Cutoff For Drugs Screened: Amphetamines 500 ng/ml Barbiturates 200 ng/ml Benzodiazepines 150 ng/ml Cocaine 150 ng/ml Methadone 200 ng/ml Opiates 100 ng/ml Phencyclidine 25 ng/ml THC 50 ng/ml Methamphetamine 500 ng/ml Tricyclic Antidepressants 300 ng/ml Oxycodone 100 ng/ml Buprenorphine 10 ng/ml The normal value for all drugs tested is negative. This report includes unconfirmed screening results, with the cutoff values listed, to be used for medical treatment purposes only. Unconfirmed results must not be used for non-medical purposes such as employment or legal testing. Clinical consideration should be applied to any drug of abuse test, particularly when unconfirmed results are used. THC URINE Negative Negative PHENCYCLIDINE SCREEN URINE Negative Negative COCAINE, URINE Negative Negative METHAMPHETAMINE Negative Negative OPIATES URINE Negative Negative AMPHETAMINE SCREEN URINE Negative Negative BENZODIAZEPINE SCREEN, URINE Negative Negative TRICYCLIC ANTIDEPRESSANTS SCREEN URINE Negative Negative METHADONE SCREEN, URINE Negative Negative BARBITURATE SCREEN, URINE Negative Negative OXYCODONE SCREEN URINE Negative Negative BUPRENORPHINE Negative Negative Lab specimens received at a [facility].???See result details for the performing location information. ANTIBODY SCREEN Reviewed date:10/15/2023 12:26:44 PM Interpretation:Negative Performing Lab: Notes/Report: ANTIBODY SCREEN Negative Lab specimen s received at a [facility].???See result details for the performing location information. ABO/RH Reviewed date:10/15/2023 12:27:07 PM Interpretation:A+ Performing Lab: Notes/Report: ABO TYPE A RH TYPE Positive Lab specimens r eceived at a [facility].???See result details for the performing location information. Reason For Referral No Information Medications Medication SIG (Take, Route, Frequency, Duration) Notes Start Date End Date Status Promethazine HCl 25 MG 1 tablet as neede d Orally every 6h as needed for nausea 10/15/2023 Active (w/Iron & FA) 27-0.8 MG 1 tablet Orally Once a day for 30 days 09/25/2023 Active Ondansetron HCl 4 MG 1 tablet Orally jose ry 4-6 hrs prn for 30 days 09/25/2023 Active Social History Sex Assigned At : Social History Observation Description Sex Assigned At Female Problems Problem Type SNOMED Code ICD Code Onset Dates Problem Status W/U Status Risk Notes Problem [id number] Obesity (BMI 30-39.9) (E66.9) Active confirmed Problem 706200086752526 History of pre-eclampsia in prior , currently (O09.299) Active confirmed Problem Third trimester (69268003) Encounter for supervision of other normal , third trimester (Z34.83) Active confirmed Vital Signs Heart Rate 75 /min 09/17/2023 Blood pressure diastolic 74 mm Hg 09/17/2023 Oximetry 100 % 09/17/2023 Height 65 in 09/17/2023 Blood pressure systolic 124 mm Hg 09/17/2023 Weight 231.2 lbs 03/04/2024 BMI 38.474 kg/m2 03/04/2024 Encounters Encounter Location Date Provider Diagnosis [facility] [address] [place] [address] 09/17/2023 [facility] [address] [place] [address] 09/18/2023 [facility] Encounter for test, result positive Z32.01 [facility] [address] [place] [address] 09/20/2023 [facility] [address] [place] [address] 09/25/2023 [facility] [address] [place] [address] 10/22/2023 [facility] [address] [place] [address] 10/23/2023 [facility] [address] [place] [address] 02/20/2024 Clover Heath [facility] [address] [place] [address] 02/22/2024 Clover Heath [facility] [address] [place] [address] 02/22/2024 Clover Heath [facility] [address] [place] [address] 03/12/2024 Clover Heath [facility] [address] [place] [address] 10/15/2023 [facility] Encounter for test, result positive Z32.01 [facility] [address] [place] [address] 11/14/2023 Clover Heath 12 weeks gestation of Z3A.12 ; Supervision of other normal , first trimester Z34.81 and History of pre-eclampsia in prior , currently O09.299 [facility] [address] [facility] [address] [place] [address] 12/11/2023 Iris Cook 16 weeks gestation of Z3A.16 and Encounter for related examination in second trimester Z34.82 [facility] [address] [address] 01/08/2024 Clover Beaven 20 weeks gestation of Z3A.20 ; Encounter for related examination in second trimester Z34.82 ; History of pre-eclampsia in prior , currently O09.299 and Obesity (BMI 30-39.9) E66.9 [facility] [address] [address] 02/05/2024 Clover Beaven Encounter for related examination in second trimester Z34.82 ; Obesity (BMI 30-39.9) E66.9 and 24 weeks gestation of Z3A.24 [facility] [address] [address] 03/04/2024 Clover Beaven Encounter for supervision of other normal , third trimester Z34.83 and 28 weeks gestation [facility] Z3A.28 [facility] [address] [facility] [address] [place] [address] 09/17/2023 Iris Cook Encounter for test, result positive Z32.01 [facility] [address] [facility] [address] [place] [address] 10/15/2023 Iris Cook Encounter for test, result positive Z32.01 [facility] [address] [address] 01/08/2024 Clover Beaven Encounter for related examination in second trimester Z34.82 Assessments Encounter Date Diagnosis (ICD Code) Assessment Notes Treat ment Notes Treatment Clinical Notes 10/15/2023 Encounter for test, result positive (ICD-10 - Z32.01) 09/17/2023 Encounter for test, result positive (ICD-10 - Z32.01) 09/18/2023 Encounter for test, result positive (ICD-10 - Z32.01) 10/15/2023 Encounter for test, result positive (ICD-10 - Z32.01) 11/14/2023 Supervision of other normal , first trimester (ICD-10 - Z34.81) 11/14/2023 12 weeks gestation of (ICD-10 - Z3A.12) 12/11/2023 Encounter for related examination in second trimester (ICD-10 - Z34.82) 12/11/2023 16 weeks gestation of (ICD-10 - Z3A.16) 01/08/2024 Encounter for related examination in second trimester (ICD-10 - Z34.82) 01/08/2024 20 weeks gestation of (ICD-10 - Z3A.20) 01/08/2024 Encounter for related examination in second trimester (ICD-10 - Z34.82) 02/05/2024 Encounter for related examination in second trimester (ICD-10 - Z34.82) 02/05/2024 Obesity (BMI 30-39.9) (ICD-10 - E66.9) 03/04/2024 28 weeks gestation of (ICD-10 - Z3A.28) 03/04/2024 Encounter for supervision of other normal , third trimester (ICD-10 - Z34.83) 01/08/2024 History of pre-eclampsia in prior , currently (ICD-10 - O09.299) 02/05/2024 24 weeks gestation of (ICD-10 - Z3A.24) 11/14/2023 History of pre-eclampsia in prior , currently (ICD-10 - O09.299) 01/08/2024 Obesity (BMI 30-39.9) (ICD-10 - E66.9) Plan Of Treatment Future Test Test Name Order Date Antibody Screen, RBC 01/08/2024 CBC 01/08/2024 Gest. Diabetes Screen 1 Hr Glucose 01/07 Syphilis T Pallidium Screening [place] 0 01/08/2024 *US OB Follow-Up 01/08/2024 Next Appt Details Provider Name:Clover Heath, 03/18/2024 03:45:00 PM, [address], [address], [place], [address], Provider Name:Clover Heath, 04/01/2024 09:30:00 AM, [address], [address], [place], [address], Provider Name:Clover Heath, 04/01/2024 10:15:00 AM, [address], [address], [place], [address], Provider Name:Clover Heath, 04/15/2024 10:15:00 AM, [address], [address], [place], [address], Provider Name:Clover Heath, 04/29/2024 10:15:00 AM, [address], [address], [place], [address], Provider Name:Clover Heath, 05/06/2024 10:15:00 AM, [address], [address], [place], [address], Provider Name:Clover Heath, 05/13/2024 10:15:00 AM, [address], [address], [place], [address], Provider Name:Clover Heath, 05/20/2024 10:15:00 AM, [address], [address], [place], [address], Provider Name:Clover Heath, 05/27/2024 10:15:00 AM, [address], [address], [place], [address], Insurance Providers Payer Name Payer Address Payer Phone Subscriber Number Group Number Insured Name Patient Relationship to Insured Coverage Start Date Coverage End Date [facility] (Medicaid) [address] [address] [place], [place] [id number] [phone] [id number] [place] , Jerzy Self - patient is the insured Medical (General) History Medical History History ICD Code HBP, especially during
[2024-03-12 12:26] LABS: Microscopic, Urine URINE MICROSCOPIC (MICROSCOPIC)
[2024-03-12 12:27] LABS: Appearance,Urine CLEAR (Clear); Bilirubin,Urine Negative (Negative); Blood, Urine Negative (Negative); Color,Urine YELLOW (Yellow); Glucose,Urine (UA) Negative (Negative); Ketones,Urine Negative (Negative); Leukocyte Esterase,Urine 1+ (Negative); Nitrate,Urine Negative (Negative); PH,Urine 6.5 (5.0-8.5); Protein,Urine Negative (Negative); Urobilinogen,Urine 0.2 EU/dl (0.2)
[2024-03-12 12:38] LABS: Bacteria,Urine 1+ /lpf; WBC,Urine Occasional #/hpf (0-3); Yeast,Urine Occasional /lpf
[2024-03-12 12:40] LABS: Amphetamine/Metha Screen,Urine Negative ng/ml (<1000); Barbiturates Screen,Urine Negative ng/ml (<200)
[2024-03-12 12:41] LABS: Benzodiazepines Screen,Urine Negative ng/ml (<200); Cannabinoid Screen,Urine Negative ng/ml (<50)
[2024-03-12 12:42] LABS: Cocaine Screen,Urine Negative ng/ml (<300)
[2024-03-12 12:43] LABS: Methadone Screen,Urine Negative ng/ml (<300); Opiate Screen,Urine Negative ng/ml (<300)
[2024-03-12 12:44] LABS: Phencyclidine Screen,Urine Negative ng/ml (<25)
--- NOTE | 2024-03-12 13:07 | US_ITS ---
PROCEDURE: US OB TRANSVAGINAL CLINICAL INDICATION: contractions at 29 weeks with vaginal pressure. COMPARISON: No exams were available for comparison FINDINGS: Transabdominal sonographic images of the pelvis were obtained. The following parameters are obtained: From her established due date she is 29weeks 3days Viable fetus in the cephalic presentation. The cervix measures 2.53 cm-3.03 cm. Subjectively the cervix looks a little longer. IMPRESSION: 1. Fetus in the cephalic presentation. 2. Limited transvaginal ultrasound of the cervix. 3. The cervix appears normal in length up to 3.03 cm. No funneling is seen. 4. Dr. Ledezma was notified. Dictated by: Rajesh Pierce MD 03/12/2024 15:49 Rajesh Pierce MD in OV 03/12/2024 15:49
[2024-03-12] MEDS: LACTATED RINGERS 1000ML 1,000 ML 999 ML IV (13:25)
[2024-03-12 13:47] LABS: Chloride 111 mmol/L (98-107); Potassium 3.6 mmoL/L (3.5-5.1); Sodium 137 mmol/L (136-145)
[2024-03-12 13:49] LABS: Alanine Aminotransferase 17 U/L (12-78); Aspartate Amino Transferase 21 U/L (14-36); Blood Urea Nitrogen 5 mg/dl (7-17); Creatinine Clearance Estimated 289 mL/min (50-200); Estimated Glomerular Filt Rate 152 ml/min (>60); GFR (African American) 183 ML/MIN (>60)
[2024-03-12 13:50] LABS: Albumin Level 3.5 g/dl (3.5-5.0); Alkaline Phosphatase 101 U/L (38-126); Anion Gap 9.6 mEq/L (5-15); Bilirubin,Total 0.2 mg/dl (0.2-1.3); Carbon Dioxide 20 mmol/L (22.0-30.0); Globulin 3.4 g/dL (1.3-3.2); Glucose 93 mg/dl (74-100); Total Protein,Serum 6.9 g/dl (6.3-8.2)
[2024-03-12 13:55] LABS: Uric Acid 3.3 mg/dl (2.5-6.2)
[2024-03-12 13:58] LABS: Fibrinogen 556 mg/dL (229.9-363.5); INR 0.86 (0.9-1.1); Prothrombin Time 9.8 seconds (10.1-12.5)
[2024-03-12 14:00] LABS: Basophils % 0.1 % (0.1-2.0); Eosinophils # 0.1 K/mm3 (0.0-0.4); Eosinophils % 0.5 % (0.1-12.0); Hematocrit 35.1 % (37.0-47.0); Hemoglobin 11.7 g/dL (12.2-16.2); Lymphocytes # 1.8 K/mm3 (0.7-4.5); Lymphocytes % 14.8 % (10-50); Mean Corpuscular HGB Conc 33.4 g/dL (31.8-35.4); Mean Corpuscular Hemoglobin 30.1 pg (27.0-31.2); Mean Corpuscular Volume 90.1 fl (81-99); Mean Platelet Volume 8.6 fl (7.4-10.4); Monocytes # 0.5 K/mm3 (0.1-1.0); Monocytes % 4.3 % (1.7-9.3); Neutrophils # 9.9 K/mm3 (1.8-7.8); Neutrophils % 80.3 % (37.0-80.0); Platelet Count 331 K/mm3 (142-424); Red Cell Distribution Width 13.6 % (11.5-17.5); White Blood Count 12.3 K/mm3 (4.8-10.8)
[2024-03-12 14:26] LABS: Creatinine,Urine Random 121 mg/dL (Not Estab.)
== END 2024-03-12 15:18 | disposition home or self-care (01) ==
LOC: OBOUT 11:44 → OB 11:45
PROVIDERS: PCP Family Medicine; Visit Provider Obstetrics & Gynecology
DX: O26.893 Other specified pregnancy related conditions, third trimester (principal); Z3A.29 29 weeks gestation of pregnancy; N89.8 Other specified noninflammatory disorders of vagina
CPT/HCPCS: 76817; 80053; 80307; 81001; 82570; 84156; 84550; 85025; 85384; 85610; 85730; 87086; G0463; J7120

== ENCOUNTER 2024-04-02 08:53 | Outpatient (CLI) | payer MEDICAID, SELFPAY ==
--- OUTSIDE RECORDS SUMMARY | 2024-04-02 08:57 | XMS_ITS ---
Author Organization [facility] Group Address [address] [place] [address] Care Team Providers Care Roll Press Operator Name Role Phone Iris Godoy Unavailable [phone] Clover Heath Unavailable [phone] REASON FOR VISIT 32 wk Growth FLORIAN 9-29 Obesity Hx of Pre-eclampsia Short interveal . mf Social History Sex Assigned At : Social History Observation Description Sex Assigned At Female Encounters Encounter Location Date Provider Diagnosis [facility] [address] [facility] [address] [place] [address] 04/01/2024 Clover Heath Plan Of Treatment Next Appt Details Provider Name:Gregory Harris, 04/04/2024 03:45:00 PM, [address], [address], Provider Name:Gregory Harris, 04/04/2024 04:00:00 PM, [address], [address], Provider Name:Clover Heath, 04/08/2024 01:00:00 PM, [address], [facility] [address], [address], Provider Name:Clover Heath, 04/08/2024 01:00:00 PM, [address] [facility] [address], [place], [address], Provider Name:Clover Heath, 04/11/2024 08:00:00 AM, [address], [address], [place], [address], Provider Name:Charleen Jeter Maddie , 04/11/2024 09:00:00 AM, [address], [address], [place], [address], Provider Name:Clover Heath, 04/15/2024 02:30:00 PM, [address], [address], [place], [address], Provider Name:Clover Heath, 04/15/2024 02:30:00 PM, [address], [address], [place], [address], Provider Name:Clover Heath, 04/18/2024 02:00:00 PM, [address] [facility], [address], [place], [address], Provider Name:Clover Heath, 04/18/2024 02:30:00 PM, [address] [facility], [address], [place], [address], Provider Name:Clover Heath, 04/22/2024 09:00:00 AM, [address], [address], [place], [address], Provider Name:Clover Heath, 04/22/2024 09:45:00 AM, [address], [address], [place], [address], Provider Name:Clover Heath, 04/25/2024 02:30:00 PM, [address], [address], [place], [address], Provider Name:Clover Heath, 04/25/2024 03:00:00 PM, [address] [facility] [address], [address], [place], [address], Provider Name:Clover Heath, 04/29/2024 10:00:00 AM, [address], [address], [place], [address], Provider Name:Clover Heath, 04/29/2024 10:15:00 AM, [address], [address], [place], [address], Provider Name:Clover Heath, 05/02/2024 02:30:00 PM, [address], [address], [place], [address], Provider Name:Clover Heath, 05/02/2024 02:45:00 PM, [address], [address], [place], [address], Provider Name:Clover Heath, 05/06/2024 09:30:00 AM, [address], [address], [place], [address], Provider Name:Clover Heath, 05/06/2024 10:15:00 AM, [address], [address], [place], [address], Provider Name:Nadia Jones , 05/09/2024 03:30:00 PM, [address], [address], [place], [address], Provider Name:Nadia Jones , 05/09/2024 04:00:00 PM, [address], [address], [place], [address], Provider Name:Clover Heath, 05/13/2024 09:30:00 AM, [address], [address], [place], [address], Provider Name:Clover Basiliohue, 05/13/2024 10:15:00 AM, [address], [address], [place], [address], Provider Name:Clover Basiliohue, 05/16/2024 02:30:00 PM, [address] [facility] [address], [address], [place], [address], Provider Name:Clover Heath, 05/16/2024 03:00:00 PM, [address] [facility] [address], [address], [place], [address], Provider Name:Clover Heath, 05/20/2024 09:30:00 AM, [address], [address], [place], [address], Provider Name:Clover Heath, 05/20/2024 10:15:00 AM, [address], [address], [place], [address], Provider Name:Clover Ivana, 05/23/2024 03:30:00 PM, [address], [address], [place], [address], Provider Name:Clover Basiliohue, 05/23/2024 04:00:00 PM, [address], [address], [place], [address], Provider Name:Clover Ivana, 05/27/2024 09:30:00 AM, [address], [address], [place], [address], Provider Name:Clover Heath, 05/27/2024 10:15:00 AM, [address], [address], [place], [address], Provider Name:Nadia Jones , 05/30/2024 03:30:00 PM, [address] [facility] [address], [address], [place], [address], Provider Name:Nadia Jones , 05/30/2024 04:00:00 PM, [address], [address], [place], [address], Progress Notes * Jose Carlos MCKAYOB: 000 (23 yo F)Acc No.[id number]:04/01/2024 Progress Note Patient:?Annabelle MCKAY Provider:?Clover Heath MD :2000???Age:23 Y???Sex:Female D ate:04/01/2024 Address:[address] [place] [address] [facility] Subjective: * Chief Complaints: * ???1. 32 wk Growth FLORIAN 9-29 Obesity Hx of Pre-eclampsia Short interveal . mf. * Medical History:? Objective: * Vitals:? Assessment: Plan: * Treatment: * Billing Information: * Visit Code:? * Procedure Codes:? * Electronic signature of Natalio Heath MD on 04/02/2024 at 08:57 AM EDT Sign off status: Pending Visit Status:?R/S (Reschedul ed) * Provider:?Clover Heath MD Date:?2023 Generated for Rainai manish/Jonelle/eTransmitting on:?04/02/2024 08:57 AM EDT
--- OUTSIDE RECORDS SUMMARY | 2024-04-02 08:57 | XMS_ITS ---
Author Organization [facility] Group Address [address] [facility] [address] [place] [address] Care Team Providers Care Income Tax Investigator Name Role Phone Iris Godoy Unavailable [phone] Clover Heath Unavailable [phone] Allergies No Known Allergies REASON FOR VISIT 32 weeks Medications Medication SIG (Take, Route, Frequency, Duration) Notes Start Date End Date Status (w/Iron & FA) 27-0.8 MG 1 tablet Orally Once a day for 30 days 09/25/2023 Active Promethazine HCl 25 MG 1 tablet as neede d Orally every 6h as needed for nausea 10/15/2023 Active Iron 325 (65 Fe) MG 1 tablet Orally Roshan y for 30 days 03/21/2024 Active NIFEdipine ER 30 MG 1 tablet on an empty stomach Orally Once a day for 30 days 03/18/2024 Active Ondansetron HCl 4 MG 1 tablet Orally jose ry 4-6 hrs prn for 30 days 09/25/2023 Active Social History Sex Assigned At : Social History Observation Description Sex Assigned At Female Vital Signs Weight 235.8 lbs 04/01/2024 BMI 39.239 kg/m2 04/01/2024 Encounters Encounter Location Date Provider Diagnosis [facility] [address] [facility] [address] [place] [address] 04/01/2024 Clover Heath Encounter for supervision of other normal , third trimester Z34.83 ; Gestational hypertension, third trimester O13.3 and 32 weeks gestation of Z3A.32 Assessments Encounter Date Diagnosis (ICD Code) Assessment Notes Treat ment Notes Treatment Clinical Notes 04/01/2024 Encounter for supervision of other normal , third trimester (ICD-10 - Z34.83) 04/01/2024 Gestational hypertension, third trimester (ICD-10 - O13.3) 04/01/2024 32 weeks gestation of (ICD-10 - Z3A.32) Plan Of Treatment Next Appt Details Follow Up: 2 - 3 Days, Reaso n: Provider Name:Gregory Harris, 04/04/2024 03:45:00 PM, [address] [facility], [address], [place], [address], Provider Name:Gregory Harris, 04/04/2024 04:00:00 PM, [address] [facility], [address], [place], [address], Provider Name:Clover Heath, 04/08/2024 01:00:00 PM, [address], [address], [place], [address], Provider Name:Clover Heath, 04/08/2024 01:00:00 PM, [address], [address], [place], [address], Provider Name:Clover Heath, 04/11/2024 08:00:00 AM, [address] [facility], [address], [place], [address], Provider Name:Charleen Perkins , 04/11/2024 09:00:00 AM, [address] [facility], [address], [place], [address], Provider Name:Clover Heath, 04/15/2024 02:30:00 PM, [address], [address], [place], [address], Provider Name:Clover Heath, 04/15/2024 02:30:00 PM, [address], [place], [address], Provider Name:Clover Heath, 04/18/2024 02:00:00 PM, [address], [address], [place], [address], Provider Name:Clover Heath, 04/18/2024 02:30:00 PM, [address], [address], [place], [address], Provider Name:Clover Heath, 04/22/2024 09:00:00 AM, [address], [address], [place], [address], Provider Name:Clover Heath, 04/22/2024 09:45:00 AM, [address], [address], [place], [address], Provider Name:Clover Heath, 04/25/2024 02:30:00 PM, [address] [facility], [address], [place], [address], Provider Name:Clover Heath, 04/25/2024 03:00:00 PM, [address] [facility], [address], [place], [address], Provider Name:Clover Heath, 04/29/2024 10:00:00 AM, [address], [address], [place], [address], Provider Name:Clover Heath, 04/29/2024 10:15:00 AM, [address], [address], [place], [address], Provider Name:Clover Heath, 05/02/2024 02:30:00 PM, [address], [address], [place], [address], Provider Name:Clover Heath, 05/02/2024 02:45:00 PM, [address], [address], [place], [address], Provider Name:Clover Heath, 05/06/2024 09:30:00 AM, [address], [address], [place], [address], Provider Name:Clover Heath, 05/06/2024 10:15:00 AM, [address], [address], [place], [address], Provider Name:Nadia Jones , 05/09/2024 03:30:00 PM, [address], [address], [place], [address], Provider Name:Nadia Jones , 05/09/2024 04:00:00 PM, [address], [address], [place], [address], Provider Name:Clover Heath, 05/13/2024 09:30:00 AM, [address], [address], [place], [address], Provider Name:Clover Heath, 05/13/2024 10:15:00 AM, [address], [address], [place], [address], Provider Name:Clover Heath, 05/16/2024 02:30:00 PM, [address], [address], [place], [address], Provider Name:Clover Heath, 05/16/2024 03:00:00 PM, [address], [address], [place], [address], Provider Name:Clover Heath, 05/20/2024 09:30:00 AM, [address], [address], [place], [address], Provider Name:Clover Sánchezn, 05/20/2024 10:15:00 AM, [address], [address], [place], [address], Provider Name:Clover Sánchezdelmi, 05/23/2024 03:30:00 PM, [address] [facility], [address], [place], [address], Provider Name:Clover Basiliohue, 05/23/2024 04:00:00 PM, [address] [facility], [address], [place], [address], Provider Name:Clover Basiliohue, 05/27/2024 09:30:00 AM, [address], [address], [place], [address], Provider Name:Clover Basiliohue, 05/27/2024 10:15:00 AM, [address], [address], [place], [address], Provider Name:Nadia Robert , 05/30/2024 03:30:00 PM, [address] [facility], [address], [place], [address], Provider Name:Nadia Mariaes , 05/30/2024 04:00:00 PM, [address] [facility], [address] [place] [address], [address], Procedure Notes * Category Sub-Category Detail Notes NST In-Office NST In-Office NST Ordered by:: . Indications: Gestational Hypertension w/ o Significant Proteinuria, O13.3, {...} Gestational Age: 32 Interpretation: Reactive Interpreted by:: .LSB Patient Instructions: Review ed normal movement, call parameters, and need to keep routine visits as scheduled. Length of Monitoring (minutes): 20 Vibroacoustic Stimulation Performed: No Progress Notes * Jose Carlos MCKAYOB: 000 (23 yo F)Acc No.[id number]:04/01/2024 Progress Note Patient:?Annabelle MCKAY Provider:?Clover Heath MD :2000???Age:23 Y???Sex:Female D ate:04/01/2024 Address:[facility] [place] Subjective: * Chief Complaints: * ???32 weeks * Medical History:? * Director Service History:?Menstrual History: ?LMP:?08/09/2023 ???Last Pap Smear/HPV Date (Historical)?09/24/2022, Negative.? * OB History:? History (GPA)?Total Pregnancies 2, Full Term 1, Premature 0, AB. Induced 0, AB. Spontaneous 0, Ectopics 0, Multiple Births 0, Living 1.? # 1:?2012, normal spontaneous vaginal delivery (), 37wks due to PReeclampsia.? * Surgical History:?No Surgica l History documented. * Hospitalization/Major Diagno stic Procedure:?No Hospitalization History. * Family History:?No Family Hi story documented..? * Medications:?TakingIron 325 (65 Fe) MG Tablet 1 tablet Orally Daily NIFEdipine ER 30 MG Tablet Extended Release 24 Hour 1 tablet on an empty stomach Orally Once a day Ondansetron HCl 4 MG Tablet 1 tablet Orally every 4-6 hrs prn (w/Iron & FA)( Jzwggwxx-Ijm-Mr-FA) 27-0.8 MG Tablet 1 tablet Orally Once a day Promethazine HCl 25 MG Tablet 1 tablet as needed Orally every 6h as needed for nausea Medication List reviewed and reconciled with the patientTaking Iron 325 (65 Fe) MG Tablet 1 tablet Orally Daily Taking NIFEdipine ER 30 MG Tablet Extended Release 24 Hour 1 tablet on an empty stomach Orally Once a day Taking Ondansetron HCl 4 MG Tablet 1 tablet Orally every 4-6 hrs prn Taking (w/Iron & FA)( Rmbdxijh-Ygo-Rs-FA) 27-0.8 MG Tablet 1 tablet Orally Once a day Taking Promethazine HCl 25 MG Tablet 1 tablet as needed Orally every 6h as needed for nausea Medication List reviewed and reconciled with the patient * Allergies:?N.K.D.A.yes[Aller gies Verified] Objective: * Vitals:?Wt: 235.8 lbs, BMI: 39.239 Index. Assessment: * Assessment: 1.?Encounter for supervision of other normal , third trimester - Z34.83 (Primary)?2.?Gestational hypertension, third trimester - O13.3?3.?32 weeks gestation of - Z3A.32? Plan: * Treatment: * Procedures:?NST In-Office:?NST In-Office ?NST Ordered by:?. ?Indications?Gestational Hypertension w/o Significant Proteinuria, O13.3, {...} ?Gestational Age?32 ?Interpretation?Reactive ?Interpreted by:?.LSB ?Patient Instructions?Reviewed normal movement, call parameters, and need to keep routine visits as scheduled. ?Length of Monitoring (minutes)?20 ?Vibroacoustic Stimulation Performed?No? * Procedure Codes:?33160 Non S tress Test (Contracted)eula Return OB [id number] HEDIS SUBSEQUENT CARE * Follow Up:?2 - 3 Days * Billing Information: * Visit Code:? eula Return OB Visit. * Procedure Codes:? 97100 Non Stress Test (Contracted). eula Return OB Visit. 0502F HEDIS SUBSEQUENT CARE. * Sign off status: Completed Visit Status:?CHK (Check Out ) true * Provider:?Clover Heath MD Date:?2023 Generated for Nadia hammond/Jonelle/Jessicaitting on:?04/02/2024 08:57 AM EDT
--- OUTSIDE RECORDS SUMMARY | 2024-04-02 08:57 | XMS_ITS ---
Author Organization [facility] Group Address [address] [place] [address] Care Team Providers Care Relationship Mgr Name Role Phone Iris Godoy Unavailable [phone] Clover Heath Unavailable [phone] REASON FOR VISIT 32WK - NST Social History Sex Assigned At : Social History Observation Description Sex Assigned At Female Encounters Encounter Location Date Provider Diagnosis [facility] [address] [place] [address] 04/01/2024 Clover Heath Plan Of Treatment Next Appt Details Follow Up: 2 - 3 Days, 2 - 3 Days, 2 - 3 Days, Reason: Provider Name:Gregory Harris, 04/04/2024 03:45:00 PM, [address], [place], [address], Provider Name:Gregory Harris, 04/04/2024 04:00:00 PM, [address], [place], [address], Provider Name:Clover Heath, 04/08/2024 01:00:00 PM, [address], [address], [place], [address], Provider Name:Clover Heath, 04/08/2024 01:00:00 PM, [address], [place], [address], Provider Name:Clover Heath, 04/11/2024 08:00:00 AM, [address], [address], [place], [address], Provider Name:Charleen Jeter Maddie , 04/11/2024 09:00:00 AM, [address], [address], [place], [address], Provider Name:Clover Heath, 04/15/2024 02:30:00 PM, [address], [address], [place], [address], Provider Name:Clover Heath, 04/15/2024 02:30:00 PM, [address], [address], [place], [address], Provider Name:Clover Heath, 04/18/2024 02:00:00 PM, [address], [address], [place], [address], Provider Name:Clover Heath, 04/18/2024 02:30:00 PM, [address], [address], [place], [address], Provider Name:Clover Heath, 04/22/2024 09:00:00 AM, [address], [address], [place], [address], Provider Name:Clover Heath, 04/22/2024 09:45:00 AM, [address], [address], [place], [address], Provider Name:Clover Heath, 04/25/2024 02:30:00 PM, [address], [address], [place], [address], Provider Name:Clover Heath, 04/25/2024 03:00:00 PM, [address], [address], [place], [address], Provider Name:Clover Ivana, 04/29/2024 10:00:00 AM, [address], [address], [place], [address], Provider Name:Clover Ivana, 04/29/2024 10:15:00 AM, [address], [address], [place], [address], Provider Name:Clover Heath, 05/02/2024 02:30:00 PM, [address] [facility], [address], [place], [address], Provider Name:Clover Ivana, 05/02/2024 02:45:00 PM, [address], [address], [place], [address], Provider Name:Clover Ivana, 05/06/2024 09:30:00 AM, [address], [address], [place], [address], Provider Name:Clover Basiliohue, 05/06/2024 10:15:00 AM, [address], [address], [place], [address], Provider Name:Nadai Jones , 05/09/2024 03:30:00 PM, [address], [address], [place], [address], Provider Name:Nadia Jones , 05/09/2024 04:00:00 PM, [address], [address], [place], [address], Provider Name:Clover Heath, 05/13/2024 09:30:00 AM, [address], [address], [place], [address], Provider Name:Clover Basiliohue, 05/13/2024 10:15:00 AM, [address], [address], [place], [address], Provider Name:Clover Sánchezdelmi, 05/16/2024 02:30:00 PM, [address], [address], [place], [address], Provider Name:Clover Basiliohue, 05/16/2024 03:00:00 PM, [address] [facility] [address], [address], [place], [address], Provider Name:Clover Basiliohue, 05/20/2024 09:30:00 AM, [address], [address], [place], [address], Provider Name:Clover Basiliohue, 05/20/2024 10:15:00 AM, [address], [address], [place], [address], Provider Name:Clover Basiliohue, 05/23/2024 03:30:00 PM, [address], [address], [place], [address], Provider Name:Clover Basiliohue, 05/23/2024 04:00:00 PM, [address], [address], [place], [address], Provider Name:Clover Basiliohue, 05/27/2024 09:30:00 AM, [address], [address], [place], [address], Provider Name:Clover Basiliohue, 05/27/2024 10:15:00 AM, [address], [address], [place], [address], Provider Name:Nadia Jones , 05/30/2024 03:30:00 PM, [address], [address], [place], [address], Provider Name:Nadia Jones , 05/30/2024 04:00:00 PM, [address] , [facility] [address], [place], [address], Progress Notes * Jose Carlos MCKAYOB: 000 (23 yo F)Acc No.[id number]:04/01/2024 Progress Note Patient:?Annabelle MCKAY Provider:?Clover Heath MD :2000???Age:23 Y???Sex:Female D ate:04/01/2024 Address:[address] [place], [place] [id number] Subjective: * Chief Complaints: * ???1. 32WK - NST. * Medical History:? Objective: * Vitals:? Assessment: Plan: * Treatment: * Follow Up:?2 - 3 Days, 2 - 3 Days, 2 - 3 Days * Billing Information: * Visit Code:? * Procedure Codes:? * Electronic signature of Natalio Heath MD on 04/02/2024 at 08:57 AM EDT Sign off status: Pending Visit Status:?CHK (Check Out ) * Provider:?Clover Heath MD Date:?2023 Generated for Rainai manish/Jonelle/eTransmitting on:?04/02/2024 08:57 AM EDT
--- OUTSIDE RECORDS SUMMARY | 2024-04-02 08:58 | XMS_ITS | Patient Health Record ---
Author Organization [facility] Address [address] [place] [address] Care Team Providers Care Duct Layer Supervisor Name Role Phone Iris Godoy Unavailable [phone] PrafulClover swann Unavailable [phone] Shannan Barth Unavailable [phone] Charleen Perkins Unavailable [phone] Allergies No Known Allergies Results Component Value Reference Range Notes ABO/RH Reviewed date:10/15/2023 12:27:07 PM Interpretation:A+ Performing Lab: Notes/Report: ABO TYPE A RH TYPE Positive Lab specimens r eceived at a [facility].???See result details for the performing location information. ANTIBODY SCREEN Reviewed date:10/15/2023 12:26:44 PM Interpretation:Negative Performing Lab: Notes/Report: ANTIBODY SCREEN Negative Lab specimen s received at a [facility].???See result details for the performing location information. URIC ACID Reviewed date:10/15/2023 03:06:00 PM Interpretation:Normal Performing Lab: Notes/Report: URIC ACID 2.8 2.4-5.7 mg/dL Lab specimens received at a [facility].???See result details for the performing location information. COMPREHENSIVE METABOLIC PANE L Reviewed date:10/15/2023 03:05:56 [...] mL/min/1.73 Lab specim ens received at a [facility].???See result details for the performing location information. LACTATE DEHYDROGENASE Reviewed date:10/15/2023 03:05:44 PM Interpretation:Normal Performing Lab: Notes/Report: LACTATE DEHYDROGENASE 182 135-214 U/L Lab sp ecimens received at a [facility].???See result details for the performing location information. HEPATITIS C ANTIBODY Reviewed date:10/15/2023 03:05:40 PM Interpretation:Negative Performing Lab: Notes/Report: HEPATITIS C ANTIBODY Non-Reactive Non-Reacti Lab spe cimens received at a [facility].???See result details for the performing location information. [...] Non-Reacti Lab specimens r eceived at a [facility].???See result details for the performing location information. PROTEIN / CREATININE RATIO, URINE Reviewed date:10/16/2023 08:19:51 AM Interpretation:pr:cr 0.08 - normal Performing Lab: Notes/Report: PROT/CREAT RATIO, UR 81.7 0.0-200.0 m g/G Crea CREATININE URINE 128.5 PROTEIN URINE 10.5 Lab specimens received at a [facility].???See result details for the performing location information. RUBELLA ANTIBODY, IGG Reviewed date:10/16/2023 08:19:31 AM Interpretation:Immune Performing Lab: Notes/Report: Performed at: - [address] [id number] [place] Drier: Deejay Rhodes PhD, Phone: [phone] RUBELLA ANTIBODIES, IGG (REF) 1.44 Immune >0. index Non-immune <0.90 Equivocal 0.90 - 0.99 Immune >0.99 Lab specimens received at a [facility].???See result details for the performing location information. CBC WITH AUTO DIFFERENTIAL Reviewed date:03/21/2024 12:14:23 PM Interpretation:mild anemia. Performing Lab: Notes/Report: WBC, CORRECTED 11.33 3.40-10.80 10*3/mm3 ERYTHROCYTES IN BLOOD BY AUTOMATED COUNT 3.74 3.77-5.28 10*6/mm3 HEMOGLOBIN (G/DL) IN BLOOD 10.9 12.0-15.9 g/dL HEMATOCRIT (%) BY AUTOMATED COUNT 33.4 34.0-46.6 % RBC MCV (FL) BY AUTOMATED COUNT 89.3 79.0-97.0 fL RBC MCH (PG) BY AUTOMATED COUNT 29.1 26.6-33.0 pg RBC MCHC (G/DL) BY AUTOMATED COUNT 32.6 31.5-35.7 g/dL RBC RDW (%) BY AUTOMATED COUNT 12.0 12.3-15.4 % RDW-SD 39.0 37.0-54.0 fl MEAN PLATELET VOLUME (FL) BY AUTOMATED COUNT 10.9 6.0-12.0 fL PLATELETS BY AUTOMATED COUNT 306 140-450 10*3/mm3 NEUTROPHILS RELATIVE PERCENT BY AUTOMATED COUNT 76.2 42.7-76.0 % LYMPHOCYTES RELATIVE PERCENT BY AUTOMATED COUNT 15.6 19.6-45.3 % MONOCYTES RELATIVE PERCENT BY AUTOMATED COUNT 6.9 5.0-12.0 % EOSINOPHILS RELATIVE PERCENT BY AUTOMATED COUNT 0.4 0.3-6.2 % BASOPHILS RELATIVE PERCENT BY AUTOMATED COUNT 0.2 0.0-1.5 % IMMATURE GRANULOCYTES RELATIVE PERCENT 0.7 0.0-0.5 % NEUTROPHILS ABSOLUTE COUNT BY AUTOMATED COUNT 8.63 1.70-7.00 10*3/mm3 LYMPHOCYTES ABSOLUTE COUNT BY AUTOMATED COUNT 1.77 0.70-3.10 10*3/mm3 MONOCYTES ABSOLUTE COUNT BY AUTOMATED COUNT 0.78 0.10-0.90 10*3/mm3 EOSINOPHILS ABSOLUTE COUNT BY AUTOMATED COUNT 0.05 0.00-0.40 10*3/mm3 BASOPHILS ABSOLUTE COUNT BY AUTOMATED COUNT 0.02 0.00-0.20 10*3/mm3 IMMATURE GRANULOCYTES ABSOLUTE COUNT 0.08 0.00-0.05 10*3/mm3 NRBC (PER 100 WBCS) 0.0 0.0-0.2 /100 WBC Lab specimens received at a [facility].???See result details for the performing location information. URIC ACID Reviewed date:03/20/2024 08:59:25 PM Interpretation:2.7 normal Performing Lab: Notes/Report: URIC ACID 2.7 2.4-5.7 mg/dL Lab specimens received at a [facility].???See result details for the performing location information. COMPREHENSIVE METABOLIC PANE L Reviewed date:03/20/2024 08:58:31 PM Interpretation:Normal Performing Lab: Notes/Report: GFR Normal >60 Chronic Kidney Disease <60 Kidney Failure <15 GLUCOSE RANDOM 79 65-99 mg/dL UREA NITROGEN MG/DL IN SER/PLAS 5 6-20 mg/dL CREATININE MG/DL IN SER/PLAS 0.48 0.57-1.00 mg/dL SODIUM MMOL/L IN SER/PLAS 136 136-145 mmol/L POTASSIUM MMOL/L IN SER/PLAS 3.9 3.5-5.2 mmol/L CHLORIDE 106 98-107 mmol/L CO2 20.1 22.0-29.0 mmol/L CALCIUM MG/DL IN SER/PLAS 8.4 8.6-10.5 mg/dL TOTAL PROTEIN 6.4 6.0-8.5 g/dL ALBUMIN G/DL IN SER/PLAS 3.2 3.5-5.2 g/dL ALT (SGPT) 11 1-33 U/L AST (SGOT) 12 1-32 U/L ALKALINE PHOSPHATASE 94 39-117 U/L BILIRUBIN TOTAL <0.2 0.0-1.2 mg/dL GLOBULIN 3.2 A/G RATIO 1.0 BUN / CREAT RATIO 10.4 7.0-25.0 ANION GAP 9.9 5.0-15.0 mmol/L EGFR CKD-EPI 135.8 >60.0 mL/min/1.73 Lab specim ens received at a [facility].???See result details for the performing location information. LACTATE DEHYDROGENASE Reviewed date:03/20/2024 08:58:37 PM Interpretation:Normal Performing Lab: Notes/Report: LACTATE DEHYDROGENASE 185 135-214 U/L Lab sp ecimens received at a [facility].???See result details for the performing location information. TREPONEMA PALLIDUM (SYPHILIS ) SCREENING CASCADE Reviewed date:02/11/2024 01:10:29 PM Interpretation:Negative Performing Lab: Notes/Report: Performed at: [address] [id number] [place] Drier: Justina Duff MD, Phone: [phone] T PALLIDUM ANTIBODIES (TP-PA) Non Reactive Non Reacti Lab specimens receiv ed at a [facility].???See result details for the performing location information. ANTIBODY SCREEN Reviewed date:02/07/2024 08:15:29 AM Interpretation: Performing Lab: Notes/Report: ANTIBODY SCREEN Negative Lab specimen s received at a [facility].???See result details for the performing location information. *US OB Detailed Anatomy Reviewed date:01/08/2024 12:08:53 PM Interpretation: Performing Lab: Notes/Report: [facility] Transabdominal Obstetric Study Report Name: JERZY LOPEZ Accession/Encounter No:[id number] : 2000 Age: 23 Gender: F Race: [...] at this time. though anatomy limited by [facility]. growth is consistent with dating. Fluid appears normal Approved By: Clover Heath MD Approved at: January 08, 2024 12:01 PM EDT Electronically Signed on Studycast JERZY LOPEZ 2024-01-08 Page 1 of 1 Imaging Center - , [facility] - [facility] [address] *US OB Complete Transabdomin al/Vaginal Reviewed date:10/16/2023 08:19:58 AM Interpretation: Performing Lab: Notes/Report: [facility] Transvaginal Obstetric Study Report Name: JERZY LOPEZ Accession/Encounter No:[id number] : 2000 Age: 22 Gender: F Race: [...] US: 8w 1d Current US FLORIAN by: HADLOCK FLORIAN: 2024-05-25 General Evaluation cardiac activity: Present Biometry (Fetus A) HR: 178 bpm Marvin-rump length:17 mm 8w 1d Conclusions: Sandhu IUP noted with cardiac activity. Size is NOT consistent with LMP dating. Uterus, ovaries and bilateral adnexa appear normal. Approved By: Ana Gaspar MD Approved at: October 15, 2023 07:39 PM EST Electronically Signed on Studycast JERZY LOPEZ 2023-10-15 Page 1 of 1 [facility] - , [facility] - [address] Pap w/reflex HPV/CTNG/Trich Reviewed date:10/23/2023 09:01:14 AM Interpretation:unsatisfactory Performing Lab:[place], [facility] [place] CLIA ID [id number], [address], [address], [place] [address], Director - Marlen Leon MD Notes/Report: Any Nucleic Acid Amplification testing is performed on the Ulthera Pillow. Diagnosis: Unsatisfactory. AP results DIAGNOSIS: Unsatisfactory. Specimen Adequacy: Unsatisfactory for interpretation due to scant squamous cellularity. Pertinent Clinical History/History of Surgery: none Collection Technique: Dana only, Broom-Alone FINAL ATOMIC PHYSICS PROFESSOR CYTOLOGY REPORT Results of Last Pap: negative LMP: 07/2023 Date of Last Pap: Not Provided Specimen Source: Cervical/Endocervical Specimen Type: Not Provided Other Gynecological Patient Information: Recommendation: Follow-up based on current clinical guidelines and/or clinical consideration. Screening note: This specimen has been analyzed by the [employer] Imaging System, an interactive computer system which assists the lab in screening of ThinPrep Pap Test slides. Following imaging, the slide was reviewed by a Booth Manager and/or Pathologist. Negative Educational Note: The pap screening test aids in the detection of premalignant and malignant states of the cervix. False positive and negative results may occur. It is not a diagnostic test. If abnormal cells are reported, follow-up based on current clinical guidelines and/or clinical consideration is recommended. Tk Holliday MD Pathologist CPT Codes: 47625, 52558 ICD Codes: Z32.01 Trichomonas vaginalis Rejected - [...] out due to scant cellularity in ThinPrep.). CBC (NO DIFF) Reviewed date:10/15/2023 03:06:09 PM [...] 10*3/mm3 Lab specimens receiv ed at a [facility].???See result details for the performing location information. [...] /100 WBC Lab specimens received at a [facility].???See result details for the performing location information. GLUCOSE, POST 50 GM GLUCOLA Reviewed date:02/07/2024 08:15:35 AM Interpretation:113, passed Performing Lab: Notes/Report: GESTATIONAL GCT 113 65-139 mg/dL Lab specimen s received at a [facility].???See result details for the performing location information. *US OB Biophysical Profile w /o Non-Stress Testing Reviewed date:03/29/2024 02:14:49 PM Interpretation: Performing Lab: Notes/Report: [facility] Transabdominal Obstetric Study Report Name: JERZY LOPEZ Accession/Encounter No:[id number] : 2000 Age: 23 Gender: F Race: White Study Date: Mar 28, 2024 Study Time: 09:51 AM Reading Group: Ana Gaspar MD Referring Group: Charleen Perkins CNM, APRN Ordering Phys: Charleen Perkins CNM, APRN Performing User: Lana Garcia RDMS Equipment: [employer] 30 Study Quality: Good Indications: EFW and BPP. GHTN Risk Factors: Obesity, Preeclampsia prior A growth ultrasound was performed. General Information Trimester: 2nd/3rd trimester Gestations: 1 : Intrauterine Gestational Age (Best) Best: 31w 5d Determined by: First US FLORIAN: 2024-05-25 Gestational Age (Current US) Current US: 32w 2d FLORIAN: 2024-05-21 Gestational Age (Other) Other: 31w 5d Description: First US FLORIAN: 2024-05-25 General Evaluation cardiac activity: Present Presentation/Position: Cephalic Placental location: Posterior Biophysical Profile: Total score: 8 of 8 Heart rate Breathing 2 Movement 2 Tone 2 AFV 2 Amniotic fluid index: 11.13 cm KEL percentile: 24 % LUQ: 2.51 cm LLQ: 3.34 cm RUQ: 2.26 cm RLQ: 3.02 cm Fluid: Normal Biometry (Fetus A) EFW: 1898.3g 4 lb 3 oz 63% HARIS-76 HR: 140 bpm BPD: 7.96 cm 32w 0d 48% HADLOCK-84 HC: 29.58 cm32w 5d 39% HADLOCK-84 AC: 27.84 cm31w 6d 54% HADLOCK-84 FL: 6.22 cm 32w 2d 51% HADLOCK-84 FL/HC: 0.21 HC/AC: 1.06 FL/BPD: 0.78 FL/AC: 0.22 Anatomy (Fetus A) Stomach: Normal Diaphragm: Normal Right kidney: Normal Left kidney: Normal Bladder: Normal Findings: Anatomy: Sonographic evaluation reveals sandhu intrauterine in cephalic position. Posterior placenta. cardiac activity present. growth appears normal. Biophysical profile is 8 of 8. Normal KEL (KEL = 11.13). Maternal Anatomy: Cervix is 3.73 cm long. Conclusions: Sandhu IUP noted with cardiac activity. growth is consistent with dating. BPP 04/03 Approved By: Ana Gaspar MD Approved at: March 29, 2024 11:13 AM EDT Electronically Signed on Studycast JERZY LOPEZ 2024-03-28 Page 1 of 1 Imaging Center - , [facility] TREPONEMA PALLIDUM (SYPHILIS ) SCREENING CASCADE Reviewed date:10/17/2023 08:50:20 AM Interpretation:Negative Performing Lab: Notes/Report: Performed at: [address] [place] [id number] [place] Drier: Justina Duff MD, Phone: [phone] T PALLIDUM ANTIBODIES (TP-PA) Non Reactive Non Reacti Lab specimens receiv ed at a [facility].???See result details for the performing location information. URINE CULTURE Reviewed date:10/16/2023 11:11:16 AM Interpretation:Normal Performing Lab: Notes/Report: Colonization of the urinary tract without infection is common. Treatment is discouraged unless the patient is symptomatic, , or undergoing an invasive urologic procedure. URINE CULTURE 2304 NORMAL UROGENITAL SKIP 25,000 CFU/mL Normal Urogenital Skip Lab specimens received at a [facility].???See result details for the performing location information. HEPATITIS B SURFACE ANTIGEN Reviewed date:10/15/2023 03:05:32 PM Interpretation:Negative Performing Lab: Notes/Report: HEPATITIS B SURFACE ANTIGEN Non-Reactive Non-Reacti Lab specimens receiv ed at a [facility].???See result details for the performing location information. [...] Negative Negative Lab specimens received at a [facility].???See result details for the performing location information. [...] Negative Negative Lab specimens received at a [facility].???See result details for the performing location information. [...] 772.00 Lab speci mens received at a [facility].???See result details for the performing location information. PROGESTERONE Reviewed date:09/18/2023 12:38:58 PM Interpretation:Normal Performing Lab: Notes/Report: Results may be falsely increased if patient taking Biotin. Third Trimester 58.7-214.0 ng/mL Second Trimester 25.4-83.3 ng/mL First Trimester 11.0-44.3 ng/mL : Postmenopausal 0.0-0.1 ng/mL Luteal phase 1.8-23.9 ng/mL Ovulation phase 0.1-12.0 ng/mL Follicular phase 0.1-0.9 ng/mL Adult Femles: Adult Males: 0.0-0.5 ng/mL Progesterone Reference Ranges: PROGESTERONE LEVEL 12.60 Lab speci mens received at a [facility].???See result details for the performing location information. PROTEIN, URINE, 24 HOUR Reviewed date:03/26/2024 09:08:15 PM Interpretation:270 Performing Lab: Notes/Report: TOTAL PROTEIN 24 HOUR URINE 270.6 0.0-150.0 mg/24hours 24 HR URINE VOLUME 2200 TIME (HOURS) 24 Lab specimens r eceived at a [facility].???See result details for the performing location information. Urine Test Reviewed date:09/17/2023 11:49:36 AM Interpretation:Positive Performing Lab: Notes/Report: Positive Q/C: Y/NQQ Y/QQ Result: Faint Pos. HCG, QUANTITATIVE, Reviewed date:09/18/2023 03:43:21 PM Interpretation: [...] 306.00 Lab speci mens received at a [facility].???See result details for the performing location information. Reason For Referral Reason Gallbladder U/S - RU Q Pain in Diagnosis 1 Abdominal pain, righ t upper quadrant (R10.11) Referral Organization [facility] Referring Provider First Name Iris Referring Provider Last Name Walt Referring Provider Speciality OB - Gynec ology Referral Priority Routine Medications Medication SIG (Take, Route, Frequency, Duration) [...] Problem Status W/U Status Risk Notes Problem [id number] Obesity (BMI 30-39.9) (E66.9) Active confirmed Problem [id number] History of pre-eclampsia in prior , currently (O09.299) Active confirmed Problem Third trimester (73740346) Encounter for supervision of other normal , third trimester (Z34.83) Active confirmed Problem [id number] Gestational hypertension, third trimester (O13.3) Active confirmed Vital Signs Heart Rate 75 /min 09/17/2023 Oximetry 100 % 09/17/2023 Blood pressure diastolic 74 mm Hg 09/17/2023 Height 65 in 09/17/2023 Blood pressure systolic 124 mm Hg 09/17/2023 Weight 235.8 lbs 04/01/2024 BMI 39.239 kg/m2 04/01/2024 Encounters Encounter Location Date Provider Diagnosis [facility] [address] [place] [address] 03/31/2024 Charleen Perkins [facility] [address] [place] [address] 09/17[facility] [address] [place] [address] [facility] for [facility], result positive Z32.01 [facility] [address] [place] [address] 09/20/2023 [facility] [address] [place] [address] 09/25/2023 [facility] [address] [place] [address] 03/[facility] Gestational hypertension, third trimester O13.3 [facility] [address] [place] [address] 03/21/2024 [facility] [address] [place] [address] 10/22/2023 [facility] [address] [place] [address] 10/23/2023 [facility] [address] [place] [address] 02/20/2024 [facility] [address] [place] [address] 02/22/2024 Clover Heath [facility] [address] [facility] [facility] [address] [place] [address] 02/22/2024 Clover Heath [facility] [address] [facility] [address] [place] [address] 03/12/2024 Clover Heath [facility] [address] [facility] [address] [place] [address] 03/25/2024 Shannan Barth [facility] [address] [place] [address] 04/01/2024 Clvoer Heath [facility] [address] [facility] [address] [place] [address] 10/15/2023 [facility] Encounter for test, result positive Z32.01 [facility] [address] [facility] [address] [place] [address] 11/14/2023 Clover Heath 12 weeks gestation of Z3A.12 ; Supervision of other normal , first trimester Z34.81 and History of pre-eclampsia in prior , currently O09.299 [facility] [address] [facility] [address] [place] [address] 12/11/2023 [facility] 16 weeks gestation of Z3A.16 and Encounter for related examination in second trimester Z34.82 [facility] [address] [place] [address] 01/08/2024 Clover Heath 20 weeks gestation of Z3A.20 ; Encounter for related examination in second trimester Z34.82 ; History of pre-eclampsia in prior , currently O09.299 and Obesity (BMI 30-39.9) E66.9 [facility] [address] [facility] [address] [place] [address] 02/05/2024 Clover Heath Encounter for related examination in second trimester Z34.82 ; Obesity (BMI 30-39.9) E66.9 and 24 weeks gestation of Z3A.24 [facility] [address] [facility] [address] [place] [address] 03/04/2024 Clover Haeth Encounter for supervision of other normal , third trimester Z34.83 and 28 weeks gestation of Z3A.28 [facility] [address] [address] 03/18/2024 Clover Heath Encounter for supervision of other normal , third trimester Z34.83 ; Obesity (BMI 30-39.9) E66.9 ; 30 weeks gestation of Z3A.30 and Gestational hypertension, third trimester O13.3 [facility] [address] [facility] [address] [place] [address] 03/25/2024 Shannan Barth Gestational hypertension, third trimester O13.3 ; Supervision of high risk in third trimester O09.93 ; History of pre-eclampsia in prior , currently O09.299 and 31 weeks gestation of Z3A.31 [facility] [address] [facility] [address] [place] [address] 03/28/2024 Charleen Perkins Gestational hypertension, third trimester O13.3 ; Encounter for supervision of other normal , third trimester Z34.83 ; History of pre-eclampsia in prior , currently O09.299 and 31 weeks gestation of Z3A.31 [facility] [address] [place] [address] 04/01/2024 Clover Heath Encounter for supervision of other normal , third trimester Z34.83 ; Gestational hypertension, third trimester O13.3 and 32 weeks gestation of Z3A.32 [facility] [address] [facility] [address] [place] [address] 09/17/2023 Iris Godoy Encounter for test, result positive Z32.01 [facility] [address] [facility] [address] [place] [address] 03/28/2024 Charleen Perkins Encounter for supervision of other normal , third trimester Z34.83 and Gestational hypertension, third trimester O13.3 [facility] [address] [facility] [address] [place] [address] 10/15/2023 Iris Godoy Encounter for test, result positive Z32.01 [facility] [address] [place] [address] 01/08/2024 Clover Heath Encounter for related examination in second trimester [...] normal , third trimester (ICD-10 - Z34.83) 03/18/2024 Obesity (BMI 30-39.9) (ICD-10 - E66.9) 04/01/2024 Encounter for supervision of other normal , third trimester (ICD-10 - Z34.83) 04/01/2024 Gestational hypertension, third trimester (ICD-10 - O13.3) 03/18/2024 Encounter for supervision of other normal , third trimester (ICD-10 - Z34.83) 03/25/2024 Supervision of high risk in third trimester (ICD-10 - O09.93) 03/25/2024 Gestational hypertension, third trimester (ICD-10 - O13.3) 03/28/2024 Encounter for supervision of other normal , third trimester (ICD-10 - Z34.83) 03/28/2024 Encounter for supervision of other normal , third trimester (ICD-10 - Z34.83) 03/28/2024 Gestational hypertension, third trimester (ICD-10 - O13.3) 03/19/2024 Gestational hypertension, third trimester (ICD-10 - O13.3) 01/08/2024 History of pre-eclampsia in prior , currently (ICD-10 - O09.299) 03/28/2024 Gestational hypertension, third trimester (ICD-10 - O13.3) 03/28/2024 History of pre-eclampsia in prior , currently (ICD-10 - O09.299) 04/01/2024 32 weeks gestation of (ICD-10 - Z3A.32) 03/25/2024 History of pre-eclampsia in prior , currently (ICD-10 - O09.299) 03/18/2024 30 weeks gestation of (ICD-10 - Z3A.30) 02/05/2024 24 weeks gestation of (ICD-10 - Z3A.24) 11/14/2023 History of pre-eclampsia in prior , currently (ICD-10 - O09.299) 01/08/2024 Obesity (BMI 30-39.9) (ICD-10 - E66.9) 03/25/2024 31 weeks gestation of (ICD-10 - Z3A.31) 03/18/2024 Gestational hypertension, third trimester (ICD-10 - O13.3) 03/28/2024 31 weeks gestation of (ICD-10 - Z3A.31) Plan Of Treatment Future Test Test Name Order Date *US OB Follow-Up 03/19/2024 *US OB Biophysical Profile w/o Non-Stres s Testing 04/01/2024 Next Appt Details Provider Name:Gregory Harris, 04/04/2024 03:45:00 PM, [address] [facility], [address], [place], [address], Provider Name:Gregory Harris, 04/04/2024 04:00:00 PM, [address] [facility], [address], [place], [address], Provider Name:Clover Heath, 04/08/2024 01:00:00 PM, [address], [address], [place], [address], Provider Name:Clover Heath, 04/08/2024 01:00:00 PM, [address], [address], [place], [address], Provider Name:Clover Heath, 04/11/2024 08:00:00 AM, [address] [facility], [address], [place], [address], Provider Name:Charleen Perkins , 04/11/2024 09:00:00 AM, [address] [facility], [address], [place], [address], Provider Name:Clover Heath, 04/15/2024 02:30:00 PM, [address], [address], [place], [address], Provider Name:Clover Heath, 04/15/2024 02:30:00 PM, [address], [address], [place], [address], Provider Name:Clover Heath, 04/18/2024 02:00:00 PM, [address], [address], [place], [address], Provider Name:Clover Heath, 04/18/2024 02:30:00 PM, [address], [address], [place], [address], Provider Name:Clover Heath, 04/22/2024 09:00:00 AM, [address], [address], [place], [address], Provider Name:Clover Heath, 04/22/2024 09:45:00 AM, [address], [address], [place], [address], Provider Name:Clover Heath, 04/25/2024 02:30:00 PM, [address], [address], [place], [address], Provider Name:Colver Heath, 04/25/2024 03:00:00 PM, [address], [address], [place], [address], Provider Name:Clover Heath, 04/29/2024 10:00:00 AM, [address], [address], [place], [address], Provider Name:Clover Heath, 04/29/2024 10:15:00 AM, [address], [address], [place], [address], Provider Name:Clover Heath, 05/02/2024 02:30:00 PM, [address] [facility], [address], [place], [address], Provider Name:Clover Ivana, 05/02/2024 02:45:00 PM, [address] [facility], [address], [place], [address], Provider Name:Clover Heath, 05/06/2024 09:30:00 AM, [address], [address], [place], [address], Provider Name:Clover Heath, 05/06/2024 10:15:00 AM, [address], [address], [place], [address], Provider Name:Nadia Jones , 05/09/2024 03:30:00 PM, [address], [address], [place], [address], Provider Name:Nadia Jones , 05/09/2024 04:00:00 PM, [address], [address], [place], [address], Provider Name:Clover Heath, 05/13/2024 09:30:00 AM, [address], [address], [place], [address], Provider Name:Clover Heath, 05/13/2024 10:15:00 AM, [address], [address], [place], [address], Provider Name:Clover Heath, 05/16/2024 02:30:00 PM, [address] [facility], [address], [place], [address], Provider Name:Clover Heath, 05/16/2024 03:00:00 PM, [address], [address], [place], [address], Provider Name:Clover Basiliohue, 05/20/2024 09:30:00 AM, [address], [address], [place], [address], Provider Name:Clover Basiliohue, 05/20/2024 10:15:00 AM, [address], [address], [place], [address], Provider Name:Clover Ivana, 05/23/2024 03:30:00 PM, [address] [facility], [address], [place], [address], Provider Name:Clover Ivana, 05/23/2024 04:00:00 PM, [address] [facility], [address], [place], [address], Provider Name:Clover Ivana, 05/27/2024 09:30:00 AM, [address], [facility] [address], [place], [address], Provider Name:Clover Behue, 05/27/2024 10:15:00 AM, [address], [facility] [address], [place], [address], Provider Name:Nadia Jones , 05/30/2024 03:30:00 PM, [address] [facility], [facility] [address], [place], [address], Provider Name:Nadia Jones , 05/30/2024 04:00:00 PM, [address] [facility], [address], [place], [address], Insurance Providers Payer Name Payer Address Payer Phone Subscriber Number Group Number Insured Name Patient Relationship to Insured Coverage Start Date Coverage End Date [facility] (Medicaid) [address] [id number] [place], [place] [phone] [id number] Jerzy Lopez Self - patient is the insured Medical (General) History Medical History History ICD Code HBP, especially during
[2024-04-02 09:11] VITALS: BMI 38.8
[2024-04-02 09:15] LABS: Microscopic, Urine URINE MICROSCOPIC (MICROSCOPIC)
[2024-04-02 09:33] LABS: Appearance,Urine SL CLOUDY (Clear); Bilirubin,Urine Negative (Negative); Blood, Urine Negative (Negative); Color,Urine YELLOW (Yellow); Glucose,Urine (UA) Negative (Negative); Ketones,Urine Negative (Negative); Leukocyte Esterase,Urine 3+ (Negative); Nitrate,Urine Negative (Negative); Protein,Urine Negative (Negative); Urobilinogen,Urine 0.2 EU/dl (0.2)
[2024-04-02 09:47] LABS: Benzodiazepines Screen,Urine Negative ng/ml (<200)
[2024-04-02 09:48] LABS: Amphetamine/Metha Screen,Urine Negative ng/ml (<1000); Barbiturates Screen,Urine Negative ng/ml (<200)
[2024-04-02 09:49] LABS: Cannabinoid Screen,Urine Negative ng/ml (<50); Cocaine Screen,Urine Negative ng/ml (<300)
[2024-04-02 09:50] LABS: Methadone Screen,Urine Negative ng/ml (<300)
[2024-04-02 09:51] LABS: Opiate Screen,Urine Negative ng/ml (<300); Phencyclidine Screen,Urine Negative ng/ml (<25)
[2024-04-02 10:02] LABS: Bacteria,Urine 2+ /lpf
[2024-04-02] MEDS: LACTATED RINGERS 1000ML 1,000 ML 999 ML IV (10:28)
[2024-04-02 10:47] LABS: Basophils % 0.2 % (0.1-2.0); Eosinophils # 0.1 K/mm3 (0.0-0.4); Eosinophils % 0.4 % (0.1-12.0); Hematocrit 36.7 % (37.0-47.0); Hemoglobin 12.1 g/dL (12.2-16.2); Lymphocytes # 1.8 K/mm3 (0.7-4.5); Lymphocytes % 14.7 % (10-50); Mean Corpuscular Hemoglobin 29.8 pg (27.0-31.2); Mean Corpuscular Volume 90.5 fl (81-99); Mean Platelet Volume 8.9 fl (7.4-10.4); Monocytes # 0.5 K/mm3 (0.1-1.0); Monocytes % 3.9 % (1.7-9.3); Neutrophils # 9.6 K/mm3 (1.8-7.8); Neutrophils % 80.9 % (37.0-80.0); Platelet Count 369 K/mm3 (142-424); Red Blood Count 4.05 M/mm3 (4.20-5.40); Red Cell Distribution Width 13.6 % (11.5-17.5); White Blood Count 11.9 K/mm3 (4.8-10.8)
[2024-04-02 10:48] LABS: Chloride 112 mmol/L (98-107); Potassium 3.6 mmoL/L (3.5-5.1); Sodium 137 mmol/L (136-145)
[2024-04-02 10:51] LABS: Alanine Aminotransferase 16 U/L (12-78); Anion Gap 9.6 mEq/L (5-15); Aspartate Amino Transferase 23 U/L (14-36); Blood Urea Nitrogen 3 mg/dl (7-17); Calcium 8.5 mg/dl (8.4-10.2); Carbon Dioxide 19 mmol/L (22.0-30.0); Creatinine Clearance Estimated 289 mL/min (50-200); Estimated Glomerular Filt Rate 152 ml/min (>60); GFR (African American) 183 ML/MIN (>60); Glucose 85 mg/dl (74-100)
[2024-04-02 10:55] LABS: Activated Partial Thrombo Time 26.2 seconds (22.8-30.6); Fibrinogen 446 mg/dL (229.9-363.5); INR 0.86 (0.9-1.1); Prothrombin Time 9.8 seconds (10.1-12.5)
[2024-04-02 11:00] VITALS: BP 135/90; PULSE 92; RESP 18; TEMP 37.2; O2SAT 97; BMI 38.8
[2024-04-02] MEDS: cefTRIAXone 1GM VIAL 1 GM IM (11:20)
[2024-04-02] MEDS: ONDANSETRON 4MG/2ML VIAL 4 MG IV (11:20)
[2024-04-02] MEDS: NIFEdipine 10MG CAPSULE 10 MG PO (11:20)
[2024-04-02 11:56] LABS: Uric Acid 3.5 mg/dl (2.5-6.2)
== END 2024-04-02 12:46 | disposition home or self-care (01) ==
LOC: OBOUT 08:55 → OB 08:56
PROVIDERS: PCP Family Medicine; Visit Provider Nurse Practitioner Obstetrics & Gynecology
DX: O26.893 Other specified pregnancy related conditions, third trimester (principal); Z3A.32 32 weeks gestation of pregnancy; R10.11 Right upper quadrant pain
CPT/HCPCS: 80048; 80307; 81001; 84450; 84460; 84550; 85025; 85384; 85610; 85730; 87086; G0463; J0696; J2405; J7120

== ENCOUNTER 2024-04-04 11:39 | Outpatient (CLI) | payer MEDICAID, SELFPAY ==
--- OUTSIDE RECORDS SUMMARY | 2024-04-04 11:41 | XMS_ITS ---
Author Organization [facility] Address [address] [place] [address] Care Team Providers Care Retail Sales Lead Name Role Phone Iris Godoy Unavailable [phone] Gregory Harris Unavailable [phone] REASON FOR VISIT BPP Social History Sex Assigned At : Social History Observation Description Sex Assigned At Female Encounters Encounter Location Date Provider Diagnosis [facility] LWH-NR [address] [facility] [address] [place] [address] 04/04/2024 Gregory Harris Plan Of Treatment Next Appt Details Provider Name:Gregory Harris, 04/04/2024 03:45:00 PM, [address] [facility], [address], [address], Provider Name:Gregory Harris, 04/04/2024 04:00:00 PM, [address] [facility], [address], [place], [address], Provider Name:Clover Heath, 04/08/2024 01:00:00 PM, [address], [place], [address], Provider Name:Clover Heath, 04/08/2024 01:00:00 PM, [address], [place], [address], Provider Name:Clover Heath, 04/11/2024 08:00:00 AM, [address] [facility], [address], [place], [address], Provider Name:Charleen Perkins , 04/11/2024 09:00:00 AM, [address], [address], [place], [address], Provider Name:Clover Heath, 04/15/2024 02:30:00 PM, [address], [address], [place], [address], Provider Name:Clover Heath, 04/15/2024 02:30:00 PM, [address], [address], [place], [address], Provider Name:Clover Heath, 04/18/2024 02:00:00 PM, [address] [address] [address], [address], [place], [address], Provider Name:Clover Heath, 04/18/2024 02:30:00 PM, [address] [facility] [address], [address], [place], [address], Provider Name:Clover Heath, 04/22/2024 09:00:00 AM, [address], [address], [place], [address], Provider Name:Clover Heath, 04/22/2024 09:45:00 AM, [address], [address], [place], [address], Provider Name:Clover Heath, 04/25/2024 02:30:00 PM, [address] [facility] [address], [address], [place], [address], Provider Name:Clover Heath, 04/25/2024 03:00:00 PM, [address] [facility] [address], [address], [place], [address], Provider Name:Clover Heath, 04/29/2024 10:00:00 AM, [address], [address], [place], [address], Provider Name:Clover Heath, 04/29/2024 10:15:00 AM, [address], [address], [place], [address], Provider Name:Clover Heath, 05/02/2024 02:30:00 PM, [address], [address], [place], [address], Provider Name:Clover Heath, 05/02/2024 02:45:00 PM, [address], [address], [place], [address], Provider Name:Clover Heath, 05/06/2024 09:30:00 AM, [address], [address], [place], [address], Provider Name:Clover Heath, 05/06/2024 10:15:00 AM, [address], [address], [place], [address], Provider Name:Nadia Jones , 05/09/2024 03:30:00 PM, [address], [address], [place], [address], Provider Name:Nadia Jones , 05/09/2024 04:00:00 PM, [address], [address], [place], [address], Provider Name:Clover Heath, 05/13/2024 09:30:00 AM, [address], [address], [place], [address], Provider Name:Clover Heath, 05/13/2024 10:15:00 AM, [address], [address], [place], [address], Provider Name:Clover Basiliohue, 05/16/2024 02:30:00 PM, [address] [facility], [address], [place], [address], Provider Name:Clover Basiliohue, 05/16/2024 03:00:00 PM, [address], [address], [place], [address], Provider Name:Clover Ivana, 05/20/2024 09:30:00 AM, [address], [address], [place], [address], Provider Name:Clover Ivana, 05/20/2024 10:15:00 AM, [address], [address], [place], [address], Provider Name:Clover Basiliohue, 05/23/2024 03:30:00 PM, [address], [address], [place], [address], Provider Name:Clover Basiliohue, 05/23/2024 04:00:00 PM, [address], [address], [place], [address], Provider Name:Clover Basiliohue, 05/27/2024 09:30:00 AM, [address], [address], [place], [address], Provider Name:Clover Heath, 05/27/2024 10:15:00 AM, [address], [address], [place], [address], Provider Name:Nadia Jones , 05/30/2024 03:30:00 PM, [address], [address], [place], [address], Provider Name:Nadia Jones , 05/30/2024 04:00:00 PM, [address] [facility] [place], [address], Progress Notes * Jose Carlos MCKAYOB: 000 (23 yo F)Acc No.[id number]:04/04/2024 Progress Note Patient:?Annabelle MCKAY Provider:?Gregory Harris CNM :2000???Age:23 Y???Sex:Female D ate:04/04/2024 Address:[address] [place], [place] [address] Subjective: * Chief Complaints: * ???1. BPP. * Medical History:? * Quality Assurance Analyst History:?Menstrual History: ?LMP:?08/09/2023 ???Last Pap Smear/HPV Date (Historical)?09/24/2022, Negative.? * OB History:? History (GPA)?Total Pregnancies 2, Full Term 1, Premature 0, AB. Induced 0, AB. Spontaneous 0, Ectopics 0, Multiple Births 0, Living 1.? # 1:?2012, normal spontaneous vaginal delivery (), 37wks due to PReeclampsia.? Objective: * Vitals:? Assessment: Plan: * Treatment: * Billing Information: * Visit Code:? * Procedure Codes:? * Electronic signature of Bhupinder Harris CNM on 04/04/2024 at 11:41 AM EDT Sign off status: Pending Visit Status:?MSGTXT (Messag e Text) * Provider:?Gregory Harris CNM Date:?2023 Generated for Nadia hammond/Jonelle/eTransmitting on:?04/04/2024 11:41 AM EDT
--- OUTSIDE RECORDS SUMMARY | 2024-04-04 11:41 | XMS_ITS ---
Author Organization [facility] Address [address] [place] [address] Care Team Providers Care Manager Story Name Role Phone Iris Godoy Unavailable [phone] Gregory Harris Unavailable [phone] REASON FOR VISIT bpp. (efw done 8-2)...Obesity , Hx of Pre-eclampsia, GHTN. nadya 05-25...sent to ..sdw left VM Social History Sex Assigned At : Social History Observation Description Sex Assigned At Female Encounters Encounter Location Date Provider Diagnosis [facility]NR [address] [facility] [address] [place] [address] 04/04/2024 Gregory Harris Plan Of Treatment Next Appt Details Provider Name:Gregory Harris, 04/04/2024 03:45:00 PM, [address] , [address], [address], Provider Name:Gregory Harris, 04/04/2024 04:00:00 PM, [address] , [address], [address], Provider Name:Clover Heath, 04/08/2024 01:00:00 PM, [address], [address], [place], [address], Provider Name:Clover Heath, 04/08/2024 01:00:00 PM, [address], [address], [place], [address], Provider Name:Clover Basiliohue, 04/11/2024 08:00:00 AM, [address] [facility], [address], [place], [address], Provider Name:Charleen Jeter Maddie , 04/11/2024 09:00:00 AM, [address] [facility] [address], [address], [place], [address], Provider Name:Clover Heath, 04/15/2024 02:30:00 PM, [address], [address], [place], [address], Provider Name:Clover Heath, 04/15/2024 02:30:00 PM, [address], [address], [place], [address], Provider Name:Clover Heath, 04/18/2024 02:00:00 PM, [address] [facility] [address], [address], [place], [address], Provider Name:Clover Heath, 04/18/2024 02:30:00 PM, [address] [facility] [address], [address], [place], [address], Provider Name:Clover Heath, 04/22/2024 09:00:00 AM, [address], [address], [place], [address], Provider Name:Clover Heath, 04/22/2024 09:45:00 AM, [address], [address], [place], [address], Provider Name:Clover Heath, 04/25/2024 02:30:00 PM, [address] [facility] [address], [address], [place], [address], Provider Name:Clover Heath, 04/25/2024 03:00:00 PM, [address], [address], [place], [address], Provider Name:Clover Basiliohue, 04/29/2024 10:00:00 AM, [address], [address], [place], [address], Provider Name:Clover Heath, 04/29/2024 10:15:00 AM, [address], [address], [place], [address], Provider Name:Clover Heath, 05/02/2024 02:30:00 PM, [address], [address], [place], [address], Provider Name:Clover Heath, 05/02/2024 02:45:00 PM, [address], [address], [place], [address], Provider Name:Clover Heath, 05/06/2024 09:30:00 AM, [address], [address], [place], [address], Provider Name:Clover Ivana, 05/06/2024 10:15:00 AM, [address], [address], [place], [address], Provider Name:Nadia Jones , 05/09/2024 03:30:00 PM, [address], [address], [place], [address], Provider Name:Nadia Jones , 05/09/2024 04:00:00 PM, [address], [address], [place], [address], Provider Name:Clover Heath, 05/13/2024 09:30:00 AM, [address], [address], [place], [address], Provider Name:Clover Ivana, 05/13/2024 10:15:00 AM, [address], [address], [place], [address], Provider Name:Clover Ivana, 05/16/2024 02:30:00 PM, [address], [address], [place], [address], Provider Name:Clover Heath, 05/16/2024 03:00:00 PM, [address], [address], [place], [address], Provider Name:Clover Heath, 05/20/2024 09:30:00 AM, [address], [address], [place], [address], Provider Name:Clover Heath, 05/20/2024 10:15:00 AM, [address], [address], [place], [address], Provider Name:Clover Heath, 05/23/2024 03:30:00 PM, [address], [address], [place], [address], Provider Name:Clover Heath, 05/23/2024 04:00:00 PM, [address] [facility], [address], [place], [address], Provider Name:Clover Heath, 05/27/2024 09:30:00 AM, [address], [address], [place], [address], Provider Name:Clover Heath, 05/27/2024 10:15:00 AM, [address], [address], [place], [address], Provider Name:Nadia Jones , 05/30/2024 03:30:00 PM, [address] [facility], [address], [place], [address], Provider Name:Nadia Jones , 05/30/2024 04:00:00 PM, [address] [facility], [address], [place], [address], Progress Notes * Jose Carlos MCKAYOB: 000 (23 yo F)Acc No.[id number]:04/04/2024 Progress Note Patient:?Annabelle MCKAY Provider:?Gregory Harris CNM :2000???Age:23 Y???Sex:Female D ate:04/04/2024 Address:[address] [place], [place] [address] Subjective: * Chief Complaints: * ???1. bpp. (efw done 8-2)... Obesity , Hx of Pre-eclampsia, GHTN. nadya 29...sent to ..sdw left . * Medical History:? Objective: * Vitals:? Assessment: Plan: * Treatment: * Billing Information: * Visit Code:? * Procedure Codes:? * Electronic signature of Bhupinder Harris CNM on 04/04/2024 at 11:41 AM EDT Sign off status: Pending Visit Status:?MSGTXT (Messag e Text) * Provider:?Gregory Harris CNM Date:?2023 Generated for Nadia hammond/Jonelle/eTransmitting on:?04/04/2024 11:41 AM EDT
--- OUTSIDE RECORDS SUMMARY | 2024-04-04 11:41 | XMS_ITS ---
Author Organization [facility] Address [address] [facility] [address] [place] [address] Care Team Providers Care Web Machine Tender Name Role Phone Iris Godoy Unavailable [phone] Clover Heath Unavailable [phone] Allergies No Known Allergies REASON FOR VISIT [...] 04/01/2024 Encounters Encounter Location Date Provider Diagnosis [facility] [address] [facility] [address] [place] [address] 04/01/2024 Clover Heath Encounter for supervision of [...] Provider Name:Gregory Harris, 04/04/2024 03:45:00 PM, [address] [facility], [address], [place], [address], Provider Name:Gregory Harris, 04/04/2024 04:00:00 PM, [address] [facility], [address], [place], [address], Provider Name:Clover Heath, 04/08/2024 01:00:00 PM, [address], [address], [place], [address], Provider Name:Clover Heath, 04/08/2024 01:00:00 PM, [address], [address], [place], [address], Provider Name:Clover Heath, 04/11/2024 08:00:00 AM, [address] [facility], [address], [place], [address], Provider Name:Charleen Perkins , 04/11/2024 09:00:00 AM, [address] [facility], [address], [place], [address], Provider Name:Clover Heath, 04/15/2024 02:30:00 PM, [address], [address], [place], [address], Provider Name:Clover Heath, 04/15/2024 02:30:00 PM, [address], [place], [address], Provider Name:Clover Heath, 04/18/2024 02:00:00 PM, [address], [address], [place], [address], Provider Name:Clover Heath, 04/18/2024 02:30:00 PM, [address], [address], [place], [address], Provider Name:Clover Heath, 04/22/2024 09:00:00 AM, [address], [address], [place], [address], Provider Name:Clover Heath, 04/22/2024 09:45:00 AM, [address], [address], [place], [address], Provider Name:Clover Heath, 04/25/2024 02:30:00 PM, [address] [facility], [address], [place], [address], Provider Name:Clover Heath, 04/25/2024 03:00:00 PM, [address] [facility], [address], [place], [address], Provider Name:Clover Heath, 04/29/2024 10:00:00 AM, [address], [address], [place], [address], Provider Name:Clover Heath, 04/29/2024 10:15:00 AM, [address], [address], [place], [address], Provider Name:Clover Heath, 05/02/2024 02:30:00 PM, [address], [address], [place], [address], Provider Name:Clover Heath, 05/02/2024 02:45:00 PM, [address], [address], [place], [address], Provider Name:Clover Heath, 05/06/2024 09:30:00 AM, [address], [address], [place], [address], Provider Name:Clover Heath, 05/06/2024 10:15:00 AM, [address], [address], [place], [address], Provider Name:Nadia Jones , 05/09/2024 03:30:00 PM, [address], [address], [place], [address], Provider Name:Nadia Jones , 05/09/2024 04:00:00 PM, [address], [address], [place], [address], Provider Name:Clover Heath, 05/13/2024 09:30:00 AM, [address], [address], [place], [address], Provider Name:Clover Heath, 05/13/2024 10:15:00 AM, [address], [address], [place], [address], Provider Name:Clover Heath, 05/16/2024 02:30:00 PM, [address], [address], [place], [address], Provider Name:Clover Heath, 05/16/2024 03:00:00 PM, [address], [address], [place], [address], Provider Name:Clover Heath, 05/20/2024 09:30:00 AM, [address], [address], [place], [address], Provider Name:Clover Sánchezn, 05/20/2024 10:15:00 AM, [address], [address], [place], [address], Provider Name:Clover Sánchezdelmi, 05/23/2024 03:30:00 PM, [address] [facility] [address], [address], [place], [address], Provider Name:Clover Basiliohue, 05/23/2024 04:00:00 PM, [address] [facility] [address], [address], [place], [address], Provider Name:Clover Basiliohue, 05/27/2024 09:30:00 AM, [address], [address], [place], [address], Provider Name:Clover Basiliohue, 05/27/2024 10:15:00 AM, [address], [address], [place], [address], Provider Name:Nadia Robert , 05/30/2024 03:30:00 PM, [address] [facility], [address], [place], [address], Provider Name:Nadia Mariaes , 05/30/2024 04:00:00 PM, [address] [facility], [address] [place] [address], [address], Procedure Notes * Category Sub-Category Detail Notes [...] Jose Carlos MCKAYOB: 000 (23 yo F)Acc No.[id number]:04/01/2024 Progress Note Patient:?Annabelle MCKAY Provider:?Clover Heath MD :2000???Age:23 Y???Sex:Female D ate:04/01/2024 Address:[facility] [id number] Subjective: * Chief Complaints: * ???32 weeks * Medical History:? * Race Starter History:?Menstrual History: ?LMP:?08/09/2023 ???Last Pap Smear/HPV Date [...] every 4-6 hrs prn (w/Iron & FA)( Rcqxhdns-Aab-Du-FA) 27-0.8 MG Tablet 1 tablet Orally Once [...] 4-6 hrs prn Taking (w/Iron & FA)( Zzgyfgjy-Nem-Xz-FA) 27-0.8 MG Tablet 1 tablet Orally Once [...] Monitoring (minutes)?20 ?Vibroacoustic Stimulation Performed?No? * Procedure Codes:?50024 Non S tress Test (Contracted)eula Return OB [id number] HEDIS SUBSEQUENT CARE * Follow Up:?2 - 3 Days * Billing Information: * Visit Code:? eula Return OB Visit. * Procedure Codes:? 45395 Non Stress Test (Contracted). eula Return OB Visit. 0502F HEDIS SUBSEQUENT CARE. * Sign off status: Completed Visit Status:?CHK (Check Out ) true * Provider:?Clover Heath MD Date:?2023 Generated for Nadia hammond/Jonelle/Jessicaitting on:?04/04/2024 11:41 AM EDT
--- OUTSIDE RECORDS SUMMARY | 2024-04-04 11:42 | XMS_ITS | Patient Health Record ---
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 ANTIBODY SCREEN Reviewed date:10/15/2023 12:26:44 PM Interpretation:Negative Performing Lab: Notes/Report: ANTIBODY SCREEN Negative Lab specimen s received at a [facility].???See result details for the performing location information. TREPONEMA PALLIDUM (SYPHILIS ) SCREENING CASCADE Reviewed date:10/17/2023 08:50:20 AM Interpretation:Negative Performing Lab: Notes/Report: Performed at: [facility] [id number] Christmas Tree Farmer: Justina Duff MD, Phone: [phone] T PALLIDUM ANTIBODIES (TP-PA) Non Reactive Non Reacti Lab specimens receiv ed at a [facility].???See result details for the performing location information. ANTIBODY SCREEN Reviewed date:02/07/2024 08:15:29 AM Interpretation: Performing Lab: Notes/Report: ANTIBODY SCREEN Negative Lab specimen s received at a [facility].???See result details for the performing location information. *US OB Biophysical Profile w /o Non-Stress Testing Reviewed date:03/29/2024 02:14:49 PM Interpretation: Performing Lab: Notes/Report: [facility] Transabdominal Obstetric Study Report Name: JERZY LOPEZ Accession/Encounter No:[id number] : 2000 Age: 23 Gender: F Race: [...] cardiac activity. growth is consistent with dating. [facility] 04/03 Approved By: Ana Gaspar MD Approved at: March 29, 2024 11:13 AM EDT Electronically Signed on Studycast JERZY LOPEZ 2024-03-28 Page 1 of 1 Imaging Center - , [facility] PROTEIN, URINE, 24 HOUR Reviewed date:03/26/2024 09:08:15 PM Interpretation:270 Performing Lab: Notes/Report: TOTAL PROTEIN 24 HOUR URINE 270.6 0.0-150.0 mg/24hours 24 HR URINE VOLUME 2200 TIME (HOURS) 24 Lab specimens r eceived at a [facility].???See result details for the performing location information. RUBELLA ANTIBODY, IGG Reviewed date:10/16/2023 08:19:31 AM Interpretation:Immune Performing Lab: Notes/Report: Performed at: [address] [place] [id number] Christmas Tree Farmer: Deejay Rhodes PhD, Phone: [phone] RUBELLA ANTIBODIES, IGG (REF) 1.44 Immune >0. index Immune >0.99 Non-immune <0.90 Lab specimens received at a [facility].???See result details for the performing location information. Equivocal 0.90 - 0.99 PROTEIN / CREATININE RATIO, URINE Reviewed date:10/16/2023 08:19:51 AM Interpretation:pr:cr 0.08 - normal Performing Lab: Notes/Report: PROT/CREAT RATIO, UR 81.7 0.0-200.0 m g/G Crea CREATININE URINE 128.5 PROTEIN URINE 10.5 Lab specimens received at a [facility].???See result details for the performing location information. HEPATITIS B SURFACE ANTIGEN Reviewed date:10/15/2023 03:05:32 PM Interpretation:Negative Performing Lab: Notes/Report: HEPATITIS B SURFACE ANTIGEN Non-Reactive Non-Reacti Lab specimens receiv ed at a [facility].???See result details for the performing location information. LACTATE DEHYDROGENASE Reviewed date:03/20/2024 08:58:37 PM Interpretation:Normal Performing Lab: Notes/Report: LACTATE DEHYDROGENASE 185 135-214 U/L Lab sp ecimens received at a [facility].???See result details for the performing location [...] mL/min/1.73 Lab specim ens received at a [facility].???See result details for the performing location information. URIC ACID Reviewed date:03/20/2024 08:59:25 PM Interpretation:2.7 normal Performing Lab: Notes/Report: URIC ACID 2.7 2.4-5.7 mg/dL Lab specimens received at a [facility].???See result details for the performing location [...] /100 WBC Lab specimens received at a [facility].???See result details for the performing location information. TREPONEMA PALLIDUM (SYPHILIS ) SCREENING CASCADE Reviewed date:02/11/2024 01:10:29 PM Interpretation:Negative Performing Lab: Notes/Report: Performed at: 01 - [address] [id number] Christmas Tree Farmer: Justina Duff MD, Phone: [phone] T PALLIDUM ANTIBODIES (TP-PA) Non Reactive Non Reacti Lab specimens receiv ed at a [facility].???See result details for the performing location information. GLUCOSE, POST 50 GM GLUCOLA Reviewed date:02/07/2024 08:15:35 AM Interpretation:113, passed Performing Lab: Notes/Report: GESTATIONAL GCT 113 65-139 mg/dL Lab specimen s received at a [facility].???See result details for the performing location [...] /100 WBC Lab specimens received at a [facility].???See result details for the performing location information. *US OB Detailed Anatomy Reviewed date:01/08/2024 12:08:53 PM Interpretation: Performing Lab: Notes/Report: [facility] Transabdominal Obstetric Study Report Name: JERZY LOPEZ Accession/Encounter No:[id number] : 2000 Age: 23 Gender: F Race: [...] at this time. though anatomy limited by [facility]. growth is consistent with dating. Fluid appears normal Approved By: Clover Heath MD Approved at: January 08, 2024 12:01 PM EDT Electronically Signed on Studycast JERZY LOPEZ 2024-01-08 Page 1 of 1 Imaging Center - , [facility] URINE CULTURE Reviewed date:10/16/2023 11:11:16 AM Interpretation:Normal Performing Lab: Notes/Report: Colonization of the urinary tract without infection is common. Treatment is discouraged unless the patient is symptomatic, , or undergoing an invasive urologic procedure. URINE CULTURE 2304 NORMAL UROGENITAL SKIP 25,000 CFU/mL Normal Urogenital Skip Lab specimens received at a [facility].???See result details for the performing location [...] Negative Negative Lab specimens received at a [facility].???See result details for the performing location [...] Negative Negative Lab specimens received at a [facility].???See result details for the performing location [...] 772.00 Lab speci mens received at a [facility].???See result details for the performing location [...] 12.60 Lab speci mens received at a [facility].???See result details for the performing location information. *US OB Complete Transabdomin al/Vaginal Reviewed date:10/16/2023 08:19:58 AM Interpretation: Performing Lab: Notes/Report: [facility] Transvaginal Obstetric Study Report Name: JERZY LOPEZ Accession/Encounter No:[id number] : 2000 Age: 22 Gender: F Race: [...] Present Biometry (Fetus A) HR: 178 bpm Oklee-rump length:17 mm 8w 1d Conclusions: Sandhu IUP noted with cardiac activity. Size is NOT consistent with LMP dating. Uterus, ovaries and bilateral adnexa appear normal. Approved By: Ana Gaspar MD Approved at: October 15, 2023 07:39 PM EST Electronically Signed on Studycast JERZY GONZALEZCASSIE 2023-10-15 Page 1 of 1 [facility] - , [facility] Urine Test Reviewed date:09/17/2023 11:49:36 AM Interpretation:Positive [...] 306.00 Lab speci mens received at a [facility].???See result details for the performing location information. Pap w/reflex HPV/CTNG/Trich Reviewed date:10/23/2023 09:01:14 AM Interpretation:unsatisfactory Performing Lab:[facility] [place] CLIA ID [id number], [address], [address], [place] [address], Director - Marlen Leon MD Notes/Report: Any Nucleic Acid Amplification testing is performed on the [employer]. Diagnosis: Unsatisfactory. AP results Collection Technique: Mohawk only, Broom-Alone Unsatisfactory for interpretation due to scant squamous cellularity. Unsatisfactory. 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 Following imaging, the slide was reviewed by a Retirement Officer and/or Pathologist. Tk Holliday MD Other Gynecological Patient Information: Negative Educational Note: The pap screening test aids in the detection of premalignant and malignant states of the cervix. False positive and negative results may occur. It is not a diagnostic test. If abnormal cells are reported, follow-up based on current clinical guidelines and/or clinical consideration is recommended. ICD Codes: Z32.01 Date of Last Pap: Not Provided Specimen Type: Not Provided CPT Codes: 63328, 16956 Recommendation: Follow-up based on current clinical guidelines and/or clinical consideration. LMP: 07/2023 Trichomonas vaginalis Rejected - Trichomonas result not [...] 10*3/mm3 Lab specimens receiv ed at a [facility].???See result details for the performing location [...] Non-Reacti Lab specimens r eceived at a [facility].???See result details for the performing location information. HEPATITIS C ANTIBODY Reviewed date:10/15/2023 03:05:40 PM Interpretation:Negative Performing Lab: Notes/Report: HEPATITIS C ANTIBODY Non-Reactive Non-Reacti Lab spe cimens received at a [facility].???See result details for the performing location information. LACTATE DEHYDROGENASE Reviewed date:10/15/2023 03:05:44 PM Interpretation:Normal Performing Lab: Notes/Report: LACTATE DEHYDROGENASE 182 135-214 U/L Lab sp ecimens received at a [facility].???See result details for the performing location [...] mL/min/1.73 Lab specim ens received at a [facility].???See result details for the performing location information. URIC ACID Reviewed date:10/15/2023 03:06:00 PM Interpretation:Normal Performing Lab: Notes/Report: URIC ACID 2.8 2.4-5.7 mg/dL Lab specimens received at a [facility].???See result details for the performing location information. Reason For Referral Reason Gallbladder U/S - RU Q Pain in Diagnosis 1 Abdominal pain, righ t upper quadrant (R10.11) Referral Organization [facility] Referring Provider First Name Iris Referring [...] Problem Status W/U Status Risk Notes Problem 121113826 Obesity (BMI 30-39.9) (E66.9) Active confirmed Problem 522867473798476 History of pre-eclampsia in prior , currently (O09.299) Active confirmed Problem Third trimester (55614228) Encounter for supervision of other normal , third trimester (Z34.83) Active confirmed Problem 865083926 Gestational hypertension, third trimester (O13.3) Active confirmed Vital Signs Heart Rate 75 /min 09/17/2023 Oximetry 100 % 09/17/2023 Blood pressure diastolic 74 mm Hg 09/17/2023 Height 65 in 09/17/2023 Blood pressure systolic 124 mm Hg 09/17/2023 Weight 235.8 lbs 04/01/2024 BMI 39.239 kg/m2 04/01/2024 Encounters Encounter Location Date Provider Diagnosis [facility] [address] [place] [address] [facility] [address] [place] [address] [facility] for test, result positive Z32.01 [facility] [address] [place] [address] 09/[facility] [address] [place] [address] 09/25/2023 [facility] [address] [facility] [address] [place] [address] 03/19[facility] Gestational hypertension, third trimester O13.3 [facility] [address] [place] [address] 03/21/[facility] [address] [place] [address] 03/31/2024 Charleen Perkins [facility] [address] [place] [address] 10/22/2023 [facility] [address] [place] [address] 10/23/2023 [facility] [address] [facility] [address] [place] [address] 02/20/2024 [facility] [address] [facility] [address] [place] [address] 02/22/2024 [facility] [address] [place] [address] 02/22/2024 Clover Heath [facility] [address] [facility] [address] [place] [address] 03/12/2024 Clover Heath [facility] [address] [facility] [address] [facility] [address] [place] [address] 03/25/2024 Shannan Barth [facility] [address] [place] [address] 04/01/2024 Clover Heath [facility] [address] [facility]S AT [facility] [address] [place] [address] 10/15/20[facility] Encounter for test, result positive Z32.01 [facility] [address] [address] [facility] [address] [place] [address] 11/14/2023 Clover Heath 12 weeks gestation of Z3A.12 ; Supervision of other normal , first trimester Z34.81 and History of pre-eclampsia in prior , currently O09.299 [facility] [address] [address] [facility] [address] [place] [address] 12/11[facility]20[facility] 16 weeks gestation of Z3A.16 and Encounter for related examination in second trimester Z34.82 [facility] [address] [place] [address] 01/08/2024 Clover Heath 20 weeks gestation of Z3A.20 ; Encounter for related examination in second trimester Z34.82 ; History of pre-eclampsia in prior , currently O09.299 and Obesity (BMI 30-39.9) E66.9 [facility] [address] [address] 02/05/2024 Clover Behue Encounter for related examination in second trimester Z34.82 ; Obesity (BMI 30-39.9) E66.9 and 24 weeks gestation of Z3A.24 [facility] [address] [address] 03/04/2024 Clover Heath Encounter for supervision of other normal , third trimester Z34.83 and 28 weeks gestation of Z3A.28 [facility] [address] [address] 03/18/2024 Clover Heath Encounter for supervision of other normal , third trimester Z34.83 ; Obesity (BMI 30-39.9) E66.9 ; 30 weeks gestation of Z3A.30 and Gestational hypertension, third trimester O13.3 [facility] [address] [facility] [address] [place] [address] 03/25/2024 Shannan Barth Gestational hypertension, third trimester O13.3 ; Supervision of high risk in third trimester O09.93 ; History of pre-eclampsia in prior , currently O09.299 and 31 weeks gestation of Z3A.31 [facility] [address] [facility] [address] [place] [address] 03/28/2024 Charleen Perkins Gestational hypertension, third trimester O13.3 ; Encounter for supervision of other normal , third trimester Z34.83 ; History of pre-eclampsia in prior , currently O09.299 and 31 weeks gestation of Z3A.31 [facility] [address] [address] 04/01/2024 Clover Heath Encounter for supervision of other normal , third trimester Z34.83 ; Gestational hypertension, third trimester O13.3 and 32 weeks gestation of Z3A.32 [facility] [address] [facility] [address] [place] [address] 09/17/2023 Iris Godoy Encounter for test, result positive Z32.01 [facility] [address]S AT [facility] [address] [place] [address] 10/15/2023 Iris Cook Encounter for test, result positive Z32.01 [facility] [address] [place] [address] 01/08/2024 Clover Heath Encounter for related examination in second trimester Z34.82 [facility] [address] [facility]S AT [facility] [address] [place] [address] 03/28/2024 Charleen Perkins Encounter for supervision of other normal , third trimester Z34.83 and Gestational hypertension, third trimester O13.3 Assessments Encounter Date Diagnosis (ICD Code) Assessment [...] Provider Name:Gregory Harris, 04/04/2024 03:45:00 PM, [address] [facility] [address], [place], [address], Provider Name:Gregory Harris, 04/04/2024 04:00:00 PM, [address] , [address], [place], [address], Provider Name:Clover Heath, 04/08/2024 01:00:00 PM, [address] [facility] [address], [place], [address], Provider Name:Clover Heath, 04/08/2024 01:00:00 PM, [address] [facility] [address], [place], [address], Provider Name:Clover Heath, 04/11/2024 08:00:00 AM, [address], [place], [address], Provider Name:Charleen Perkins , 04/11/2024 09:00:00 AM, [address] [facility] [address], [place], [address], Provider Name:Clover Heath, 04/15/2024 02:30:00 PM, [address], [address], [place], [address], Provider Name:Clover Basiliohue, 04/15/2024 02:30:00 PM, [address], [address], [place], [address], Provider Name:Clover Basiliohue, 04/18/2024 02:00:00 PM, [address] [facility]S AT [facility], [address], [place], [address], Provider Name:Clover Heath, 04/18/2024 02:30:00 PM, [address] BEDS AT THE [facility], [address], [place], [address], Provider Name:Clover Ivana, 04/22/2024 09:00:00 AM, [address], [address], [place], [address], Provider Name:Clover Basiliohue, 04/22/2024 09:45:00 AM, [address], [address], [place], [address], Provider Name:Clover Basiliohue, 04/25/2024 02:30:00 PM, [address] BEDS AT THE [facility], [address], [place], [address], Provider Name:Clover Heath, 04/25/2024 03:00:00 PM, [address] BEDS AT THE [facility], [address], [place], [address], Provider Name:Clover Heath, 04/29/2024 10:00:00 AM, [address], [address], [place], [address], Provider Name:Clover Heath, 04/29/2024 10:15:00 AM, [address], [address], [place], [address], Provider Name:Clover Ivana, 05/02/2024 02:30:00 PM, [address], [address], [place], [address], Provider Name:Clover Basiliohue, 05/02/2024 02:45:00 PM, [address], [address], [place], [address], Provider Name:Clover Heath, 05/06/2024 09:30:00 AM, [address], [address], [place], [address], Provider Name:Clover Heath, 05/06/2024 10:15:00 AM, [address], [address], [place], [address], Provider Name:Nadia Jones , 05/09/2024 03:30:00 PM, [address], [address], [place], [address], Provider Name:Nadia Jones , 05/09/2024 04:00:00 PM, [address] [facility] [address], [address], [place], [address], Provider Name:Clover Ivana, 05/13/2024 09:30:00 AM, [address], [address], [place], [address], Provider Name:Clover Heath, 05/13/2024 10:15:00 AM, [address], [address], [place], [address], Provider Name:Clover Heath, 05/16/2024 02:30:00 PM, [address], [address], [place], [address], Provider Name:Clover Heath, 05/16/2024 03:00:00 PM, [address], [address], [place], [address], Provider Name:Clover Heath, 05/20/2024 09:30:00 AM, [address], [address], [place], [address], Provider Name:Clover Basiliohue, 05/20/2024 10:15:00 AM, [address], [address], [place], [address], Provider Name:Clover Heath, 05/23/2024 03:30:00 PM, [address] [facility] [address], [place], [address], Provider Name:Clover Heath, 05/23/2024 04:00:00 PM, [address] , [facility] [address], [place], [address], Provider Name:Clover Heath, 05/27/2024 09:30:00 AM, [address], [address], [place], [address], Provider Name:Clover Heath, 05/27/2024 10:15:00 AM, [address], [address], [place], [address], Provider Name:Nadia Jones , 05/30/2024 03:30:00 PM, [address] [facility], [facility] [address], [place], [address], Provider Name:Nadia Jones , 05/30/2024 04:00:00 PM, [address] BEDS AT THE [facility], [facility] [address] [place] [address], [address], Insurance Providers Payer Name Payer Address Payer Phone Subscriber Number Group Number Insured Name Patient Relationship to Insured Coverage Start Date Coverage End Date [facility] (Medicaid) [address] [address] [place], [place] [id number] Jerzy Lopez Self - patient is the insured Medical (General) History Medical History History ICD Code HBP, especially during
[2024-04-04 11:46] VITALS: BMI 38.9
--- NOTE | 2024-04-04 11:47 | US_ITS ---
PROCEDURE: US OB BPP W/FET-MAT S/D CLINICAL INDICATION: htn COMPARISON: US US OB TRANSVAGINAL from 03/12/2024 FINDINGS: Transabdominal sonographic images of the uterus were obtained. From her established due date she is 32weeks 5days. The following parameters are obtained: Viable Fetus in the cephalic presentation with a fundal placenta grade 2. A placental Ayers is seen. The cervix measures 4.3 cm. Measurements: heart Rate = 125bpm Qualitative AFV:2 Breathing movements: 2 Gross Body Movements: 2 Tone: 2 Biophysical profile score: 8 Amniotic Fluid index: 13.14 cm, MVP 4.83 cm. No obvious anomalies evident.Kidneys, bladder, stomach, four-chamber heart, three-vessel cord appear normal. IMPRESSION: 1. Viable fetus in the cephalic presentation with a fundal placenta grade 2. 2. The fluid is within normal limits with an amniotic fluid index of 13.14 cm, MVP 4.83 cm. 3. Biophysical profile is 8/8 with good breathing movement and good movement seen. 4. Limited anatomical scan appears normal. Dictated by: Rajesh Pierce MD 04/05/2024 07:36 Rajesh Pierce MD in OV 04/05/2024 07:36
[2024-04-04 11:54] LABS: Microscopic, Urine URINE MICROSCOPIC (MICROSCOPIC)
[2024-04-04 12:03] VITALS: BP 129/78; PULSE 79; RESP 18; TEMP 36.8; O2SAT 97
[2024-04-04 12:03] LABS: Appearance,Urine CLEAR (Clear); Bilirubin,Urine Negative (Negative); Blood, Urine 2+ (Negative); Color,Urine YELLOW (Yellow); Glucose,Urine (UA) Negative (Negative); Ketones,Urine Negative (Negative); Leukocyte Esterase,Urine 2+ (Negative); Nitrate,Urine Negative (Negative); Protein,Urine Negative (Negative); Specific Gravity, Urine 1.015 (1.005-1.030); Urobilinogen,Urine 0.2 EU/dl (0.2)
[2024-04-04 12:05] VITALS: BMI 38.9
[2024-04-04 12:21] LABS: Barbiturates Screen,Urine Negative ng/ml (<200)
[2024-04-04 12:22] LABS: Benzodiazepines Screen,Urine Negative ng/ml (<200)
[2024-04-04 12:23] LABS: Amphetamine/Metha Screen,Urine Negative ng/ml (<1000); Cannabinoid Screen,Urine Negative ng/ml (<50)
[2024-04-04 12:24] LABS: Cocaine Screen,Urine Negative ng/ml (<300); Methadone Screen,Urine Negative ng/ml (<300)
[2024-04-04 12:25] LABS: Opiate Screen,Urine Negative ng/ml (<300)
[2024-04-04 12:26] LABS: Phencyclidine Screen,Urine Negative ng/ml (<25)
[2024-04-04 12:40] LABS: Bacteria,Urine 1+ /lpf
== END 2024-04-04 13:35 | disposition home or self-care (01) ==
LOC: OBOUT 11:40 → OB 11:40
PROVIDERS: Obstetrics & Gynecology; PCP Family Medicine; Visit Provider Obstetrics & Gynecology
DX: O13.3 Gestational [pregnancy-induced] hypertension without significant proteinuria, third trimester (principal); Z3A.32 32 weeks gestation of pregnancy
CPT/HCPCS: 76811; 76819; 76820; 80307; 81001; 87086; G0463

== ENCOUNTER 2024-04-11 13:53 | Outpatient (CLI) | payer MEDICAID, SELFPAY ==
--- NOTE | 2024-04-11 13:57 | US_ITS ---
PROCEDURE: US OB BIOPHYSICAL PROFILE CLINICAL INDICATION: chronic hypertension COMPARISON: US US OB BPP W/FET-MAT S/D from 04/04/2024 FINDINGS: Transabdominal sonographic images of the uterus were obtained. From her established due date she is 33weeks 5days. The following parameters are obtained: Viable Fetus in the cephalic presentation with a posterior placenta grade 2. Average ultrasound age is 33weeks 4days Estimated weight 2,154g, 4 lb 12 oz The cervix measures 3.52 cm. Measurements: heart Rate = 124bpm BPD = 33weeks 6days, 47 percentile HC = 33weeks 6days, 17 percentile AC = 33weeks 0 days, 29 percentile FL = 33weeks 4days, 34 percentile HC/AC is 1.05 FL/BPD is 0.78 FL/AC is 0.22 29 percentile Amniotic fluid index: 8.69cm, MVP 4.09 cm. Qualitative AFV:2 Breathing movements: 2 Gross Body Movements: 2 Tone: 2 Biophysical profile score: 8 No obvious anomalies evident.Kidneys, profile, bladder, stomach, four-chamber heart, three-vessel cord appear normal. IMPRESSION: 1. Viable fetus in the cephalic presentation with a posterior placenta grade 2. 2. The fluid is within normal limits with an amniotic fluid index of 8.69 cm, MVP 4.09 cm. 3. Biophysical profile is 8/8 with good breathing movement and movement seen. 4. There has been good interval growth with the fetus currently 29th percentile. 5. Limited anatomical scan appears normal. Dictated by: Rajesh Pierce MD 04/11/2024 14:45 Rajesh Pierce MD in [place] 04/11/2024 14:45
== END 2024-04-11 23:59 | disposition home or self-care (01) ==
LOC: RAD 13:54
PROVIDERS: PCP Family Medicine; Visit Provider Obstetrics & Gynecology
DX: O10.913 Unspecified pre-existing hypertension complicating pregnancy, third trimester (principal); Z3A.33 33 weeks gestation of pregnancy
CPT/HCPCS: 76816; 76819

== ENCOUNTER 2024-04-16 08:42 | Outpatient (CLI) | payer MEDICAID, SELFPAY ==
[2024-04-16 08:54] VITALS: BMI 39.7
[2024-04-16 09:00] VITALS: BP 141/96; PULSE 93; RESP 18; TEMP 37.3; O2SAT 97; BMI 39.7
[2024-04-16 09:08] LABS: Appearance,Urine CLEAR (Clear); Bilirubin,Urine Negative (Negative); Blood, Urine 1+ (Negative); Color,Urine YELLOW (Yellow); Glucose,Urine (UA) Negative (Negative); Ketones,Urine Negative (Negative); Leukocyte Esterase,Urine 1+ (Negative); Nitrate,Urine Negative (Negative); Protein,Urine Negative (Negative); Specific Gravity, Urine 1.015 (1.005-1.030); Urobilinogen,Urine 0.2 EU/dl (0.2)
[2024-04-16 09:25] LABS: Amphetamine/Metha Screen,Urine Negative ng/ml (<1000); Barbiturates Screen,Urine Negative ng/ml (<200)
[2024-04-16 09:26] LABS: Benzodiazepines Screen,Urine Negative ng/ml (<200)
[2024-04-16 09:27] LABS: Cannabinoid Screen,Urine Negative ng/ml (<50); Cocaine Screen,Urine Negative ng/ml (<300)
[2024-04-16 09:28] LABS: Methadone Screen,Urine Negative ng/ml (<300); Opiate Screen,Urine Negative ng/ml (<300)
[2024-04-16 09:29] LABS: Phencyclidine Screen,Urine Negative ng/ml (<25)
[2024-04-16 09:51] LABS: Microscopic, Urine URINE MICROSCOPIC (MICROSCOPIC)
[2024-04-16 09:52] LABS: Bacteria,Urine Trace /lpf; RBC,Urine Occasional #/hpf (0-3)
[2024-04-16] MEDS: ACETAMINOPHEN 325MG TAB 650 MG PO (10:08)
[2024-04-16] MEDS: LACTATED RINGERS 1000ML 1,000 ML 999 ML IV (10:09)
[2024-04-16] MEDS: cefTRIAXone 1GM VIAL 1 GM IM (10:58)
[2024-04-16] MEDS: NIFEdipine 10MG CAPSULE 10 MG PO (10:59)
[2024-04-16] MEDS: BETAMETHASONE ACET/PHOS 6MG/ML 5ML MDV 12 MG IM (10:59)
== END 2024-04-16 12:12 | disposition home or self-care (01) ==
LOC: OBOUT 08:44 → OB 08:45
PROVIDERS: PCP Family Medicine; Visit Provider Nurse Practitioner Obstetrics & Gynecology
DX: O26.893 Other specified pregnancy related conditions, third trimester (principal); Z3A.34 34 weeks gestation of pregnancy; O21.0 Mild hyperemesis gravidarum; R10.84 Generalized abdominal pain
CPT/HCPCS: 80307; 81001; 87086; 87088; 87186; G0463; J0696; J0702; J7120

== ENCOUNTER 2024-04-17 11:25 | Outpatient (CLI) | payer MEDICAID, SELFPAY ==
[2024-04-17 11:39] VITALS: BP 136/84; PULSE 77; RESP 18; TEMP 37.1; O2SAT 98
[2024-04-17 11:44] VITALS: BMI 39.7
[2024-04-17] MEDS: BETAMETHASONE ACET/PHOS 6MG/ML 5ML MDV 12 MG IM (11:53)
== END 2024-04-17 12:10 | disposition home or self-care (01) ==
LOC: OBOUT 11:27
PROVIDERS: PCP Family Medicine; Visit Provider Obstetrics & Gynecology
DX: O47.1 False labor at or after 37 completed weeks of gestation (principal); Z3A.34 34 weeks gestation of pregnancy
CPT/HCPCS: 96372; J0702

== ENCOUNTER 2024-04-18 13:29 | Outpatient (CLI) | payer MEDICAID, SELFPAY ==
--- NOTE | 2024-04-18 13:30 | US_ITS ---
PROCEDURE: US OB BIOPHYSICAL PROFILE CLINICAL INDICATION: chronic hypertension COMPARISON: No exams were available for comparison FINDINGS: Transabdominal sonographic images of the uterus were obtained. From her established due date she is 34weeks 5days. The following parameters are obtained: Viable Fetus in the cephalic presentation with a posterior placenta grade 2. The cervix measures 3.45 cm. Measurements: heart Rate = 147bpm Amniotic fluid index: 9.51cm, MVP 4.06 cm. Qualitative AFV:2 Breathing movements: 2 Gross Body Movements: 2 Tone: 2 Biophysical profile score: 8 No obvious anomalies evident.Kidneys, profile, stomach, bladder, cord insertion, four-chamber heart appear normal. IMPRESSION: 1. Viable fetus in the cephalic presentation with a posterior placenta grade 2. 2. The fluid is within normal limits with an amniotic fluid index of 9.51 cm, MVP 4.06 cm. 3. Biophysical profile is normal with good breathing movement and movement seen. 4. Limited anatomical scan appears normal. Dictated by: Rajesh Pierce MD 04/19/2024 07:42 Rajesh Pierce MD in [place] 04/19/2024 07:42
== END 2024-04-18 23:59 | disposition home or self-care (01) ==
LOC: RAD 13:30
PROVIDERS: PCP Family Medicine; Visit Provider Obstetrics & Gynecology
DX: O10.913 Unspecified pre-existing hypertension complicating pregnancy, third trimester (principal); Z3A.34 34 weeks gestation of pregnancy
CPT/HCPCS: 76819

== ENCOUNTER 2024-04-22 11:55 | Outpatient (CLI) | payer MEDICAID, SELFPAY ==
[2024-04-22] VITALS (9 sets, daily range): BP systolic 121–153; BP diastolic 73–95; PULSE 91–100; RESP 16; TEMP 36.6; O2SAT 100; BMI 39.6
[2024-04-22 12:45] LABS: Albumin Level 3.7 g/dl (3.5-5.0); Basophils % 0.1 % (0.1-2.0); Chloride 107 mmol/L (98-107); Eosinophils % 0.3 % (0.1-12.0); Hematocrit 40.4 % (37.0-47.0); Hemoglobin 13.1 g/dL (12.2-16.2); Lymphocytes # 2.1 K/mm3 (0.7-4.5); Lymphocytes % 13.1 % (10-50); Mean Corpuscular HGB Conc 32.4 g/dL (31.8-35.4); Mean Corpuscular Hemoglobin 29.7 pg (27.0-31.2); Mean Corpuscular Volume 91.7 fl (81-99); Mean Platelet Volume 9.8 fl (7.4-10.4); Monocytes # 0.7 K/mm3 (0.1-1.0); Monocytes % 4.1 % (1.7-9.3); Neutrophils % 82.4 % (37.0-80.0); Platelet Count 362 K/mm3 (142-424); Potassium 4.3 mmoL/L (3.5-5.1); Red Cell Distribution Width 14.2 % (11.5-17.5); Sodium 134 mmol/L (136-145); White Blood Count 15.8 K/mm3 (4.8-10.8)
[2024-04-22 12:48] LABS: Alanine Aminotransferase 22 U/L (12-78); Albumin/Globulin Ratio 1.1 (1.1-1.8); Alkaline Phosphatase 145 U/L (38-126); Anion Gap 10.3 mEq/L (5-15); Aspartate Amino Transferase 22 U/L (14-36); Bilirubin,Total 0.4 mg/dl (0.2-1.3); Blood Urea Nitrogen 8 mg/dl (7-17); Carbon Dioxide 21 mmol/L (22.0-30.0); Creatinine Clearance Estimated 370 mL/min (50-200); Estimated Glomerular Filt Rate 196 ml/min (>60); GFR (African American) 237 ML/MIN (>60); Globulin 3.5 g/dL (1.3-3.2); Glucose 87 mg/dl (74-100); Total Protein,Serum 7.2 g/dl (6.3-8.2)
[2024-04-22 12:51] LABS: MANUAL DIFFERENTIAL MANUAL DIFFERENTIAL (MANUAL DIFF)
[2024-04-22 12:55] LABS: Activated Partial Thrombo Time 27.1 seconds (22.8-30.6); Fibrinogen 610 mg/dL (229.9-363.5); INR 0.85 (0.9-1.1); Prothrombin Time 9.7 seconds (10.1-12.5)
[2024-04-22 12:57] LABS: Microscopic, Urine URINE MICROSCOPIC (MICROSCOPIC)
[2024-04-22] MEDS: LACTATED RINGERS 1000ML 1,000 ML 999 ML IV (13:36)
[2024-04-22 13:43] LABS: Uric Acid 3.7 mg/dl (2.5-6.2)
[2024-04-22 14:02] LABS: Appearance,Urine CLEAR (Clear); Bilirubin,Urine Negative (Negative); Blood, Urine 1+ (Negative); Color,Urine YELLOW (Yellow); Glucose,Urine (UA) Negative (Negative); Ketones,Urine Negative (Negative); Leukocyte Esterase,Urine Negative (Negative); Nitrate,Urine Negative (Negative); Protein,Urine Negative (Negative); Urobilinogen,Urine 0.2 EU/dl (0.2)
[2024-04-22 14:05] LABS: Eosinophils % 1 % (0-3); Lymphocytes % 12 % (10-50); Monocytes % 2 % (2-9); Neutrophils % 85 % (42-76); Total Cells Counted 100
[2024-04-22 14:06] LABS: Platelet Estimate Normal; RBC Morphology Normal
[2024-04-22 14:16] LABS: Creatinine,Urine Random 68 mg/dL (Not Estab.)
[2024-04-22 14:42] LABS: Bacteria,Urine Trace /lpf; Squamous Epithelial Cell,Urine Occasional #/hpf (0-5); WBC,Urine Occasional #/hpf (0-3)
== END 2024-04-22 15:37 | disposition home or self-care (01) ==
LOC: OBOUT 11:57 → OB 11:59
PROVIDERS: Obstetrics & Gynecology; PCP Family Medicine; Visit Provider Internal Medicine
DX: O10.913 Unspecified pre-existing hypertension complicating pregnancy, third trimester (principal)
CPT/HCPCS: 80053; 81001; 82570; 84156; 84550; 85007; 85025; 85384; 85610; 85730; G0463; J7120

== ENCOUNTER 2024-04-24 10:40 | Outpatient (CLI) | payer MEDICAID, SELFPAY ==
[2024-04-24 11:08] LABS: Collection Time,Urine 24 hours; Total Volume,Urine 2750 mL (600-1600)
[2024-04-24 11:40] LABS: Patient Height,Urine 66 inches
[2024-04-24 11:42] LABS: Patient Weight,Urine 238 lbs
[2024-04-24 11:58] LABS: Total Protein 24 Hour,Urine 385 mg/24 hr (40-90)
[2024-04-24 11:59] LABS: Creatinine 24 Hour,Urine 1568 mg/24hr (630-2500)
[2024-04-24 12:10] LABS: Creatinine,Urine Random 57 mg/dL (Not Estab.)
[2024-04-24 12:11] LABS: Creatinine Clearance Urine 219.3 mL/min (25-115)
== END 2024-04-24 23:59 | disposition home or self-care (01) ==
LOC: LAB.DROPOF 10:41
PROVIDERS: PCP Family Medicine; Visit Provider Obstetrics & Gynecology
DX: O10.913 Unspecified pre-existing hypertension complicating pregnancy, third trimester (principal)
CPT/HCPCS: 82575; 84155

== ENCOUNTER 2024-04-25 12:45 | Outpatient (CLI) | payer MEDICAID, SELFPAY ==
--- NOTE | 2024-04-25 12:46 | US_ITS ---
PROCEDURE: US OB BIOPHYSICAL PROFILE CLINICAL INDICATION: chronic hypertension COMPARISON: US US OB TRANSVAGINAL from 03/12/2024 US US OB BPP W/FET-MAT S/D from 04/04/2024 US US OB BIOPHYSICAL PROFILE from 04/11/2024 US OB BIOPHYSICAL PROFILE from 04/18/2024 FINDINGS: Transabdominal sonographic images of the uterus were obtained. From her established due date she is 35weeks 5days. The following parameters are obtained: Viable Fetus in the cephalic presentation with a posterior placenta grade 2. A placental Ayers is seen. Cervix measures 2.7 cm. Measurements: heart Rate = 167bpm Amniotic fluid index: 8.97cm, MVP 3.53 cm Qualitative AFV:2 Breathing movements: 2 Gross Body Movements: 2 Tone: 2 Biophysical profile score: 8 No obvious anomalies evident.Kidneys, four-chamber heart, three-vessel cord appear normal. IMPRESSION: 1. Viable fetus in the cephalic presentation with a posterior placenta grade 2. There is a small placental Ayers. 2. The fluid is within normal limits with an amniotic fluid index of 8.97 cm, MVP 3.53 cm. 3. Biophysical profile is 8/8 with good breathing movement and movement seen. 4. Limited anatomical scan appears normal. Dictated by: Rajesh Pierce MD 04/25/2024 17:21 Rajesh Pierce MD in [place] 04/25/2024 17:21
== END 2024-04-25 23:59 | disposition home or self-care (01) ==
LOC: RAD 12:46
PROVIDERS: PCP Family Medicine; Visit Provider Obstetrics & Gynecology
DX: O10.913 Unspecified pre-existing hypertension complicating pregnancy, third trimester (principal)
CPT/HCPCS: 76819

== ENCOUNTER 2024-05-16 08:28 | Outpatient (CLI) | payer MEDICAID, SELFPAY ==
--- NOTE | 2024-05-16 08:34 | MR_ITS ---
FINAL REPORT CLINICAL HISTORY: Headaches COMPARISON: None FINDINGS: Multi planar MR imaging was obtained through the brain without contrast. The midline structures appear intact. There is no evidence of Chiari malformation. On T2 and flair axial images the brain parenchyma is homogeneous. On diffusion-weighted images there is no evidence of restricted diffusion. The visualized paranasal sinuses demonstrate normal signal voids. The seventh and eighth nerve root complexes are intact. IMPRESSION: Essentially unremarkable nonenhanced brain MRI. Reviewed, Interpreted and Dictated by Bryant Armenta MD Transcribed by Tamie Zhang Authenticated and [facility]
== END 2024-05-16 23:59 | disposition home or self-care (01) ==
PROVIDERS: PCP Family Medicine; Visit Provider Obstetrics & Gynecology
DX: G43.109 Migraine with aura, not intractable, without status migrainosus (principal)
CPT/HCPCS: 70551

== ENCOUNTER 2024-05-30 13:16 | Outpatient (CLI) | payer MEDICAID, SELFPAY ==
[2024-05-30 13:37] LABS: Basophils # 0.1 K/mm3 (0-0.2); Basophils % 0.7 % (0.1-2.0); Eosinophils # 0.1 K/mm3 (0.0-0.4); Hematocrit 39.4 % (37.0-47.0); Hemoglobin 13.3 g/dL (12.2-16.2); Lymphocytes # 1.9 K/mm3 (0.7-4.5); Lymphocytes % 22.8 % (10-50); Mean Corpuscular HGB Conc 33.6 g/dL (31.8-35.4); Mean Corpuscular Hemoglobin 29.7 pg (27.0-31.2); Mean Corpuscular Volume 88.4 fl (81-99); Mean Platelet Volume 7.7 fl (7.4-10.4); Monocytes # 0.4 K/mm3 (0.1-1.0); Monocytes % 4.9 % (1.7-9.3); Neutrophils # 5.8 K/mm3 (1.8-7.8); Neutrophils % 70.5 % (37.0-80.0); Platelet Count 321 K/mm3 (142-424); Red Blood Count 4.46 M/mm3 (4.20-5.40); Red Cell Distribution Width 13.6 % (11.5-17.5); White Blood Count 8.2 K/mm3 (4.8-10.8)
[2024-05-30 14:12] LABS: Alanine Aminotransferase 27 U/L (12-78); Albumin Level 4.1 g/dl (3.5-5.0); Albumin/Globulin Ratio 1.5 (1.1-1.8); Alkaline Phosphatase 162 U/L (38-126); Anion Gap 11.9 mEq/L (5-15); Aspartate Amino Transferase 55 U/L (14-36); Bilirubin,Total 1.1 mg/dl (0.2-1.3); Blood Urea Nitrogen 14 mg/dl (7-17); Calcium 9.1 mg/dl (8.4-10.2); Carbon Dioxide 23 mmol/L (22.0-30.0); Chloride 104 mmol/L (98-107); Estimated Glomerular Filt Rate 88 ml/min (>60); GFR (African American) 107 ML/MIN (>60); Globulin 2.8 g/dL (1.3-3.2); Glucose 99 mg/dl (74-100); Magnesium 1.5 mg/dl (1.6-2.3); Potassium 3.9 mmoL/L (3.5-5.1); Sodium 135 mmol/L (136-145); Total Protein,Serum 6.9 g/dl (6.3-8.2); Uric Acid 5.1 mg/dl (2.5-6.2)
== END 2024-05-30 23:59 | disposition home or self-care (01) ==
LOC: LAB 13:17
PROVIDERS: PCP Family Medicine; Visit Provider Obstetrics & Gynecology
DX: O14.90 Unspecified pre-eclampsia, unspecified trimester (principal)
CPT/HCPCS: 36415; 80053; 83735; 84550; 85025

== ENCOUNTER 2024-06-18 08:07 | Outpatient (CLI) | payer MEDICAID, SELFPAY ==
--- NOTE | 2024-06-18 08:11 | US_ITS ---
PROCEDURE INFORMATION: Exam: US Abdomen, Limited; Right Upper Quadrant Exam date and time: 06/18/2024 8:29 AM Age: 23 years old Clinical indication: Abdominal pain; Additional info: Ruq pain TECHNIQUE: Imaging protocol: Real time ultrasound of the abdomen with image documentation. Limited exam focused on the right upper quadrant. COMPARISON: CT ABDOMEN PELVIS WO CON 08/29/2020 8:42 AM FINDINGS: Liver: Liver unremarkable. Gallbladder: Wall echo shadow complex: The gallbladder is full of gallstones. Question mildly thickened. 3-4 mm. Biliary ducts: Common bile duct 3 mm. Common bile duct normal. Pancreas: Visualized portions of the pancreas normal. Right kidney: Right kidney 12.2 cm. Right kidney is normal. Portal venous: Flow within the portal vein is towards the liver- hepatopedal Hepatic veins: Hepatic veins are patent. IMPRESSION: Wall echo shadow complex: The gallbladder is full of gallstones. Question mildly thickened. Consider hepatobiliary imaging if indicated.
[2024-06-18 09:02] LABS: Basophils # 0.1 K/mm3 (0-0.2); Basophils % 0.7 % (0.1-2.0); Eosinophils # 0.1 K/mm3 (0.0-0.4); Eosinophils % 1.2 % (0.1-12.0); Hematocrit 39.3 % (37.0-47.0); Hemoglobin 13.3 g/dL (12.2-16.2); Lymphocytes # 1.6 K/mm3 (0.7-4.5); Lymphocytes % 21.7 % (10-50); Mean Corpuscular HGB Conc 33.9 g/dL (31.8-35.4); Mean Corpuscular Hemoglobin 29.4 pg (27.0-31.2); Mean Corpuscular Volume 86.6 fl (81-99); Mean Platelet Volume 7.4 fl (7.4-10.4); Monocytes # 0.4 K/mm3 (0.1-1.0); Monocytes % 4.6 % (1.7-9.3); Neutrophils # 5.5 K/mm3 (1.8-7.8); Neutrophils % 71.9 % (37.0-80.0); Platelet Count 339 K/mm3 (142-424); Red Blood Count 4.54 M/mm3 (4.20-5.40); Red Cell Distribution Width 13.7 % (11.5-17.5); White Blood Count 7.6 K/mm3 (4.8-10.8)
[2024-06-18 09:24] LABS: Albumin Level 4.1 g/dl (3.5-5.0); Chloride 107 mmol/L (98-107); Potassium 4.5 mmoL/L (3.5-5.1); Sodium 140 mmol/L (136-145)
[2024-06-18 09:26] LABS: Amylase 68 U/L (30-110)
[2024-06-18 09:27] LABS: Alanine Aminotransferase 30 U/L (12-78); Albumin/Globulin Ratio 1.5 (1.1-1.8); Alkaline Phosphatase 76 U/L (38-126); Anion Gap 11.5 mEq/L (5-15); Aspartate Amino Transferase 27 U/L (14-36); Bilirubin,Total 0.5 mg/dl (0.2-1.3); Blood Urea Nitrogen 14 mg/dl (7-17); Calcium 9.8 mg/dl (8.4-10.2); Carbon Dioxide 26 mmol/L (22.0-30.0); Estimated Glomerular Filt Rate 88 ml/min (>60); GFR (African American) 107 ML/MIN (>60); Globulin 2.8 g/dL (1.3-3.2); Glucose 93 mg/dl (74-100); Lipase 106 U/L (23-300); Total Protein,Serum 6.9 g/dl (6.3-8.2)
[2024-06-18 16:03] LABS: Free T4 (Free Thyroxine) 1.17 ng/dl (0.78-2.19)
[2024-06-18 16:09] LABS: D-Dimer 0.37 ug/mL (0.0-0.5)
[2024-06-18 16:17] LABS: Thyroid Stimulating Hormone 2.38 uIU/mL (0.465-4.68)
== END 2024-06-18 23:59 | disposition home or self-care (01) ==
PROVIDERS: Internal Medicine; PCP Family Medicine; Visit Provider Obstetrics & Gynecology
DX: R10.11 Right upper quadrant pain (principal); I20.9 Angina pectoris, unspecified; I10 Essential (primary) hypertension; R00.0 Tachycardia, unspecified
CPT/HCPCS: 36415; 76705; 80050; 80053; 82150; 83690; 84439; 84443; 85025; 85378

== ENCOUNTER 2024-07-03 07:22 | Outpatient (CLI) | payer MEDICAID, SELFPAY ==
[2024-07-03 06:59] VITALS: BMI 39.1
--- NOTE | 2024-07-03 07:25 | CT_ITS ---
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 A noncontrast coronary calcium scan was performed. A CT attenuation threshold of 130 Hounsfield units (HU) was used for the detection of calcium in contiguous voxels of 1 sq mm in area to be counted as individual lesions. Bolus tracking in the ascending aorta with a threshold of 180 HU was performed. Immediately afterwards, ECG synchronized cardiac CT was then performed from the cardiac base to apex using retrospective gating with ECG tube current modulation. A total of 85 mL of Isovue 370 mg/mL contrast medium was administered at 5 mL/sec followed by a saline flush using a biphasic injection protocol. A tube voltage of 120 KVp was used. The patient received the following medications prior to the cardiac CT. 75 mg of oral metoprolol 15 mg of oral ivabradine 0.8 mg of sublingual nitroglycerin The average heart rate at the time of acquisition was 61 bpm and regular. Image Reconstruction Transaxial images were reconstructed at 0.67 mm slide thickness. Data was reviewed interactively on an advanced workstation capable of 2 and 3-dimensional displays in all conventional reconstruction formats, including multiplanar reformations, maximum intensity projections, curved multiplanar reformations, and volume rendered reconstructions. When applicable, selected routine images describing the relevant coronary anatomy and pathology were saved and sent to PACS. Complications None Technical Quality Overall image quality was good. Coronary artery opacification was adequate. Total DLP (Dose-Length Product) is 1567.5 mGy-cm. The reported value represents the total of one or more individual components during the CT acquisition of this date and at this time, and as such, the same value may appear in more than one CT report depending on the interpreting/reporting physicians. COMPARISON None FINDINGS CT Coronary Calcium Scoring LMA (Left Main Artery) = 0 LAD (Left Anterior Descending) = 0 LCX (Left Coronary Circumflex) = 0 RCA (Right Coronary Artery) = 0 Total Calcium Score = 0 using the AJ-130 method. The interpretation of the calcium heart score is based on the following continuum*: 0 = no calcified plaque detected (risk of coronary artery disease is very low ??? less than 5%) 1-10 = calcium detected in extremely minimal levels (risk of coronary diseases is still low ??? less than 10%) 11-100 = mild levels of plaque detected with certainty (mild or minimal narrowing of heart arteries is likely) 101-400 = definite,at least moderate levels of plaque detected (relatively high risk of a heart attack within 3-5 years) >401-999 = extensive levels of plaque detected (high risk of heart attack, high levels of vascular disease are present, high likelihood of at least one significant coronary narrowing) *The calcium heart score quantifies the burden of coronary calcification/plaque in the coronary arteries. The calcium heart score is not able to evaluate the presence or burden of non-calcified (i.e. soft) plaque. There is no identifiable calcification in the aortic valve, mitral annulus or mitral valve, pericardium, or myocardium. Coronary CT Angiography The coronary arterial system is right dominant. Quantitative Stenosis Grading: Left Main (LM): The left main originates normally from the left sinus of Valsalva. The LM bifurcates into the left anterior descending artery and left circumflex artery. The LM is patent with no evidence of atherosclerosis. Left Anterior Descending (LAD) and Diagonal Branches: The LAD gives off 3 diagonal branch(es). The LAD and its branches are patent with no evidence of atherosclerosis. There is no evidence of LAD-myocardial bridge. Left Circumflex (LCX) and Obtuse Marginals (OM): The LCX gives off 2 Obtuse Marginal (OM) branch(es). The LCX and its branches are patent with no evidence of atherosclerosis. Right Coronary Artery (RCA): The RCA originates normally from the right sinus of Valsalva. The RCA gives off a posterior descending artery (PDA) and posterolateral (PL) branches. The RCA and its branches are patent with no evidence of atherosclerosis. Non-Coronary Cardiac Findings: Analysis of the left ventricular (LV) structure and function was performed after 3-D reconstruction of the LV from axial images, with user-corrected automatic contouring for assessment of LV volumes and user-defined reconstruction from oblique planes for measurement of 3-D cardiac structure and function. -The left ventricle systolic function is normal. -There is no left atrial appendage filling defect. Two right pulmonary veins and two left pulmonary veins drain normally into the left atrium. -No pericardial thickening or calcification. -Central and branch pulmonary arteries in the [id number] are unremarkable. -Thoracic aorta within the visualized thoracic aortic-branches in the [id number] is unremarkable. Extracardiac Structures No significant extra-cardiac findings. Note, however, that this study is focused on the cardiac findings. IMPRESSION -No coronary calcification with an Agatston score = 0 using the AJ-130 method. -No evidence of significant flow-limiting atherosclerosis of the coronary arteries. -No evidence of coronary anomalies or myocardial bridges. -CAD-RADS 0. Management recommendations per ACC/AHA guidelines*, as clinically appropriate. *Recommendations: CAD RADS 0: Reassurance. Consider non-atherosclerotic causes of chest pain. CAD RADS 1: Consider non-atherosclerotic causes of chest pain. Consider preventive therapy and risk factor modification. CAD RADS 2: Consider non-atherosclerotic causes of chest pain. Consider preventive therapy and risk factor modification, particularly for patients with nonobstructive plaque in multiple segments. CAD RADS 3: Consider further functional testing. Consider symptom-guided anti-ischemic and preventive pharmacotherapy as well as risk factor modification per published guideline statements. CAD RADS 4A: Consider further functional testing or invasive coronary angiography with revascularization per published guideline statements. Consider symptom-guided anti-ischemic and preventive pharmacotherapy as well as risk factor modification per published guideline statements. CAD RADS 4B: Invasive coronary angiography recommended with revascularization per published guideline statements. Consider symptom-guided anti-ischemic and preventive pharmacotherapy as well as risk factor modification per published guideline statements. CAD RADS 5: Consider invasive angiography and/or viability assessment with revascularization per published guideline statements. Consider symptom-guided anti-ischemic and preventive pharmacotherapy as well as risk factor modification per published guideline statements. CRITICAL RESULT None COMMUNICATION Per this written report The coronary and cardiac findings of this CCTA were reviewed, reported, and signed by Mckinley Restrepo MD (Music Adapter) Conclusion Electronically signed by : Bee Restrepo MD 07/06/2024 20:15:07
[2024-07-03 07:52] LABS: Urine Pregnancy, HCG Qual. Negative (Negative)
[2024-07-03] MEDS: IVABRADINE HCL 7.5MG TABLET *IVABRADINE+METOPROLOL REGIMINE 15 MG PO (07:56)
[2024-07-03] MEDS: METOPROLOL TARTRATE 25MG TABLET *IVABRADINE+METOPROLOL REGIMINE 25 MG PO (07:56)
[2024-07-03] MEDS: METOPROLOL TARTRATE 50MG TABLET *IVABRADINE+METOPROLOL REGIMINE 50 MG PO (07:56)
[2024-07-03 07:59] VITALS: BP 141/83; PULSE 70; RESP 18; TEMP 36.3; O2SAT 98
[2024-07-03 08:57] VITALS: BP 120/84; PULSE 57; O2SAT 98
[2024-07-03] MEDS: NITROGLYCERIN 0.4MG SL TABLET 0.8 MG SL (08:58)
[2024-07-03 08:59] VITALS: BP 102/66; PULSE 56; O2SAT 98
[2024-07-03] MEDS: IOPAMIDOL-370 (76%);100ML BOTTLE 85 ML IV (09:07)
[2024-07-03] MEDS: 0.9 % SODIUM CHLORIDE 50 ML VIAL IV (09:07)
[2024-07-03] MEDS: SODIUM CHLORIDE 0.9% 10ML SYR (RAD ONLY) 10 ML IV (09:07)
== END 2024-07-03 09:15 | disposition home or self-care (01) ==
LOC: RAD 07:22
PROVIDERS: PCP Family Medicine; Visit Provider Internal Medicine
DX: I20.89 Other forms of angina pectoris (principal); I10 Essential (primary) hypertension; R00.0 Tachycardia, unspecified
CPT/HCPCS: 75574; 81025; Q9967

== ENCOUNTER 2024-07-18 08:46 | Outpatient (CLI) | payer MEDICAID, SELFPAY ==
[2024-07-18 09:47] LABS: HCG Qualitative, Serum Negative (Negative)
== END 2024-07-18 23:59 | disposition home or self-care (01) ==
LOC: PREOP 08:47
PROVIDERS: PCP Family Medicine; Visit Provider Surgery
DX: Z01.812 Encounter for preprocedural laboratory examination (principal)
CPT/HCPCS: 84703

== ENCOUNTER 2024-07-18 10:37 | Outpatient (CLI) | payer MEDICAID, SELFPAY ==
--- NOTE | 2024-07-18 10:42 | CA_ITS ---
APPROVED REPORT EXAM: Comprehensive 2D, Doppler, and color-flow Echocardiogram Rn Hemo Dialysis: Barbara Parry, LEW, RVS Ht: 5 ft 5 in Wt: 235lbs BSA: 2.12 BP: 43/95 mmHg Indications: CP, HTN, CORTES, Post -3months 2D Dimensions IVSd 0.97 cm F: 0.6-1.0 LVEF (Visual) 61.80 % PWd 0.90 cm F: 0.6 - 1.0 LA Volume 56.80 mL LVDd 4.76 cm F: 3.9 - 5.3 LA Volume Index 26.886169 mL/m2 (M/F) 16-34 LVDs 3.18 cm F: 2.2 - 3.5 Left Atrium 2.83 cm F: 2.7 - 3.8 M-Mode Dimensions LA Diam 3.62 cm (1.9-4.0) EPSs 0.32 cm TAPSE 1.07 (<1.7) LV Diastology E Decel Time 197 (160-240 msec) E/A Ratio 0.93 MED A' 12.20 cm/s LAT A' 10.00 cm/s Aortic Valve TONY Index 1.20 cm2/m2 AoV Peak Deon. 124.0 (50-130 cm/s) AO Peak GR. 6.10 mmHg AO Mean GR. 3.00 (<5 mmHg) AO VTI 15.8 (18-25 cm) TONY (VTI) 2.60 (2.5-4.5 cm2) Mitral Valve MV A Velocity 76.0 (40-130 cm/s) E/A Ratio 0.93 Pulmonary Valve PV Peak Velocity 101.0 (50-150 cm/s) Left Ventricle The left ventricle is normal size. The left ventricular systolic function is normal. The left ventricular ejection fraction is within the normal range. There is normal left ventricular wall thickness. There is normal LV segmental wall motion. The left ventricular diastolic function is normal. LVEF is 55%. Right Ventricle The right ventricle is normal size. The right ventricular systolic function is normal. Atria The left atrium size is normal. The right atrium size is normal. The interatrial septum is not very well-visualized, but grossly there is no Doppler evidence of interatrial shunt. Aortic Valve The aortic valve opens well. There is no aortic valvular stenosis. No aortic regurgitation is present. Mitral Valve The mitral valve is normal in structure. No evidence of mitral valve stenosis. There is no mitral valve regurgitation noted. Tricuspid Valve The tricuspid valve leaflets are thin and pliable. Trace tricuspid regurgitation. There is insufficient TR jet to estimate RVSP. Pulmonic Valve The pulmonary valve is normal in structure. Trace pulmonic regurgitation. Great Vessels The aortic root is normal in size. The ascending aorta is not well-visualized. IVC is normal in size and collapses >50% with inspiration. Pericardium There is no pericardial effusion. Other Information Study Quality: Fair Conclusion Normal biventricular systolic function. No significant valvular stenosis or regurgitation. Electronically signed by : Bee Restrepo MD 07/21/2024 12:06:09
== END 2024-07-18 23:59 | disposition home or self-care (01) ==
LOC: RT 10:38
PROVIDERS: PCP Family Medicine; Visit Provider Internal Medicine
DX: R07.9 Chest pain, unspecified (principal)
CPT/HCPCS: 93306

== ENCOUNTER 2024-07-28 07:23 | Day surgery (SDC) | payer MEDICAID, SELFPAY ==
[2024-07-18 09:20] VITALS: BMI 37.4
[2024-07-28] VITALS (11 sets, daily range): BP systolic 104–146; BP diastolic 44–114; PULSE 62–99; RESP 16–18; TEMP 35.6–43; O2SAT 95–100
[2024-07-28 08:27] LABS: HCG Qualitative, Serum Negative (Negative)
--- NOTE | 2024-07-28 09:09 | EXP.ANES.CKL ---
[facility] Disclaimer: The information contained in this section may have been updated after the patient was seen, as this information can be updated by other users. Medical History Family history of coronary arteriosclerosis Colicky RUQ abdominal pain Encounter for insertion of Mirena IUD Mirena inserted 06/13/24 Encounter for visit History of pre-eclampsia in prior , currently Acute blood loss anemia Status post normal vaginal delivery Pre-eclampsia affecting , antepartum with 35 completed weeks gestation Pre-eclampsia Surgical History No significant past surgical history Family History Grandmother Cancer breast Social History Smoking Status: Never smoker alcohol intake: never substance use type: denies use current occupational status: employed Travel in the last 8 weeks: None [facility] Anesthesia Checklist Patient Identification Patient Identification: Verbal (Name & ) Structural Data Admitted From: Home Planned Operative Procedure/s: lap juanito Consent for Planned Operative Procedure(s) Verified: Yes NPO Status Verified Time NPO: 00:00 Additional verifications Anesthesia Reactions: No Hx Blood Transfusions: No Blood Transfusion Reaction: No Airway Assessment Mallampati Score:: Class II C-Spine Mobility Assessed: Yes TMJ Mobility Assessed: Yes Dentition: Good Dentition Neurological Assessment Level of Consciousness: Awake, Alert and Appropriate Anesthesia Plan Anesthesia Risk discussed: Yes Anesthesia Plan: Verified ASA Class: II Anesthesia Type: General
[2024-07-28] MEDS: CEFAZOLIN SODIUM 2 GM in 0.9 % SODIUM CHLORIDE 100 ML IV (09:40)
[2024-07-28] MEDS: LIDOCAINE 1% 20ML MDV 20 ML (09:47)
[2024-07-28] MEDS: ROPIVACAINE 0.5% 30ML VIAL 150 MG (09:47)
--- NOTE | 2024-07-28 10:42 | EXP.OP.NOTE ---
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 There is fatty infiltration of the liver. Operative note:: Consent was obtained patient was taken to the operating room. She was positioned in a supine position. General anesthesia was induced via endotracheal tube. Abdomen was prepped and draped in the standard surgical fashion. Subumbilical skin incision was made. Dissection was carried down through subcutaneous tissues to the fascia. Fascia was elevated. Veress needle was inserted. CO2 pneumoperitoneum was achieved to 15 mmHg. 11 mm optical trocar was inserted at the umbilicus. Intraperitoneal contents were visualized. She was positioned in reverse Trendelenburg and left side down. A couple of 5 mm trocars were inserted in the right upper abdomen. 10 mm trocar was inserted in the epigastrium. She had some fatty infiltration of the liver. Gallbladder was grasped retracted anteriorly and superiorly over the dome of the liver. Infundibulum of the gallbladder was retracted anterolaterally. Blunt dissection was carried out at the neck of the gallbladder bluntly incising the visceral peritoneum. Dissection was carried out isolating the cystic duct and cystic artery. She had a rather prominent lymph node of Calot. This was preserved. The cystic duct was isolated and the critical view of safety. It was multiply clipped and sharply divided between clips. The cystic artery was carefully coagulated with LOYDA ultrasonic harmonic too and divided. Gallbladder was dissected free from the liver in a retrograde fashion using LOYDA ultrasonic harmonic too. Gallbladder was placed within an Endo Catch retrieval device and removed from the peritoneal cavity via the umbilical trocar site which required some extension of the fascia incision. Pneumoperitoneum was reestablished. Limited irrigation was carried out of the gallbladder fossa. There was good hemostasis. Trocars were then removed and CO2 pneumoperitoneum was evacuated. Fascia at the umbilicus was closed with multiple interrupted 0 Vicryl sutures. Local anesthetic was infiltrated. Skin incisions were closed with 4-0 Monocryl in a subcuticular fashion. A single 4-0 plain gut was placed right lateral trocar site. Dermabond and dressings were applied. Condition: stable Disposition: PACU Complications:: None immediately apparent
--- NOTE | 2024-07-28 10:53 | EXP.ANES.I ---
[facility] Anesthesia Record Part I Anesthesia Record I Intake, IV Amount: 450 Hydration: Adequate Estimated blood loss (mL): 10 Urine output (mL): 0 Blood Products used (#): none Blood Pressure: 125/114 SaO2: 97 Pulse Rate: 99 Airway Patency: Patent Respiratory Rate: 16 Temperature: 96.1 F Patient is:: Awake (Talking) and Stable Stable to PACU at:: 10:53
--- NOTE | 2024-07-28 13:40 | P.PNANES_ITS ---
[facility] Anesthesia Record Part II Anesthesia Record Part II Discharge Time: 11:18 Destination: Surgical Day Care (OP Surgery) PACU nurse assessment reviewed?: Yes Patient Condition:: Good Anesthesia Complications:: None Swallowing reflex intact?: Yes Airway Patency: Patent Cyanosis?: No Blood Pressure: 146/81 SaO2: 95 Respiratory Rate: 16 Pulse Rate: 83 Temperature: 97.1 F Mental Status: Alert & Oriented Pain level:: 0 Nausea and/or vomitting:: None Intake, IV Amount: 450 Hydration: Adequate
== END 2024-07-28 12:00 | disposition home or self-care (01) ==
PROVIDERS: PCP Family Medicine; Visit Provider Surgery
PROC: 0FT44ZZ Resection of Gallbladder, Percutaneous Endoscopic Approach (ICD-10-PCS; CPT 47562; principal; 2024-07-28 09:00)
DX: K80.20 Calculus of gallbladder without cholecystitis without obstruction (principal)
CPT/HCPCS: 47562; 84703; 96374; J0690; J1100; J1595; J1885; J2250; J2405; J2710; J3010

== ENCOUNTER 2024-09-29 13:52 | Outpatient (CLI) | payer MEDICAID, SELFPAY ==
[2024-09-29 14:36] LABS: Basophils % 0.4 % (0.1-2.0); Eosinophils # 0.1 K/mm3 (0.0-0.4); Eosinophils % 0.8 % (0.1-12.0); Hematocrit 42.7 % (37.0-47.0); Hemoglobin 14.1 g/dL (12.2-16.2); Lymphocytes # 2.2 K/mm3 (0.7-4.5); Lymphocytes % 24.3 % (10-50); Mean Corpuscular Hemoglobin 28.1 pg (27.0-31.2); Mean Corpuscular Volume 85.1 fl (81-99); Mean Platelet Volume 10.1 fl (7.4-10.4); Monocytes # 0.6 K/mm3 (0.1-1.0); Monocytes % 6.3 % (1.7-9.3); Neutrophils # 6.3 K/mm3 (1.8-7.8); Neutrophils % 67.9 % (37.0-80.0); Platelet Count 420 K/mm3 (142-424); Red Blood Count 5.02 M/mm3 (4.20-5.40); Red Cell Distribution Width 12.3 % (11.5-17.5); White Blood Count 9.2 K/mm3 (4.8-10.8)
[2024-09-29 14:59] LABS: Alanine Aminotransferase 37 U/L (12-78); Albumin Level 4.6 g/dl (3.5-5.0); Aspartate Amino Transferase 29 U/L (14-36); Blood Urea Nitrogen 13 mg/dl (7-17); Calcium 10.3 mg/dl (8.4-10.2); Carbon Dioxide 25 mmol/L (22.0-30.0); Chloride 103 mmol/L (98-107); Cholesterol 164 mg/dl (140-200); Estimated Glomerular Filt Rate 123 ml/min (>60); GFR (African American) 149 ML/MIN (>60); Glucose 89 mg/dl (74-100); HDL Cholesterol 31 mg/dl (40-60); Magnesium 1.7 mg/dl (1.6-2.3); Sodium 138 mmol/L (136-145); Total Protein,Serum 7.2 g/dl (6.3-8.2); Triglycerides 288 mg/dl (30-150); VLDL Cholesterol 58 mg/dL (0-40)
[2024-09-29 15:00] LABS: Alkaline Phosphatase 108 U/L (38-126); Chol/HDL Ratio 5.3 (1-3.5)
[2024-09-29 15:15] LABS: Free T4 (Free Thyroxine) 0.88 ng/dl (0.78-2.19)
[2024-09-29 15:30] LABS: Thyroid Stimulating Hormone 1.77 uIU/mL (0.465-4.68)
[2024-09-29 15:36] LABS: Anion Gap 14.2 mEq/L (5-15)
[2024-09-29 15:39] LABS: Bilirubin,Indirect 0.2 mg/dL (0.0-0.9)
[2024-09-29 15:56] LABS: Direct LDL Cholesterol 81.14 mg/dL (100-129)
[2024-09-29 16:00] LABS: Bilirubin,Total 0.2 mg/dl (0.2-1.3); Bilirubin,Unconjugated 0.1 mg/dL (0.0-1.1); Potassium 4.2 mmoL/L (3.5-5.1)
== END 2024-09-29 23:59 | disposition home or self-care (01) ==
LOC: LAB 13:53
PROVIDERS: PCP Internal Medicine; Visit Provider Internal Medicine
DX: R94.31 Abnormal electrocardiogram [ECG] [EKG] (principal); R60.0 Localized edema; R06.00 Dyspnea, unspecified; R80.9 Proteinuria, unspecified; Z82.49 Family history of ischemic heart disease and other diseases of the circulatory system; R07.9 Chest pain, unspecified; O14.90 Unspecified pre-eclampsia, unspecified trimester
CPT/HCPCS: 36415; 80048; 80061; 80076; 83735; 84439; 84443; 85025

== ENCOUNTER 2024-10-26 09:41 | Outpatient (CLI) | payer MEDICAID, SELFPAY ==
[2024-10-26 15:01] LABS: Total Protein 24 Hour,Urine 78 mg/24 hr (40-90); Total Volume,Urine 1550 mL (600-1600)
== END 2024-10-26 23:59 | disposition home or self-care (01) ==
LOC: LAB.DROPOF 09:42
PROVIDERS: PCP Internal Medicine; Visit Provider Internal Medicine
DX: R80.9 Proteinuria, unspecified (principal)
CPT/HCPCS: 84155